=== PATIENT | male | born 1980 | race Caucasian/White ===

== ENCOUNTER 2022-08-14 10:11 | Outpatient (CLI) | payer OTHER, SELFPAY | END 2022-08-14 10:12 | disposition home or self-care (01) | LOC: RT 10:13 | PROVIDERS: Visit Provider Nurse Practitioner Family | DX: J42 Unspecified chronic bronchitis (principal); R05.9 Cough, unspecified | CPT/HCPCS: 94010 ==

== ENCOUNTER → 2023-03-06 09:59 | Outpatient (BNVA) | payer OTHER, SELFPAY | PROVIDERS: Visit Provider Internal Medicine Rheumatology | DX: Z79.899 Other long term (current) drug therapy (principal); M19.90 Unspecified osteoarthritis, unspecified site; R60.9 Edema, unspecified; Z11.1 Encounter for screening for respiratory tuberculosis; Z11.59 Encounter for screening for other viral diseases; M45.6 Ankylosing spondylitis lumbar region; R60.0 Localized edema; M76.61 Achilles tendinitis, right leg; M76.62 Achilles tendinitis, left leg | CPT/HCPCS: 36415; 80076; 82306; 82565; 85025; 85651; 86140; 86200; 86480; 86704; 86803; 86812; 87340 ==

== ENCOUNTER 2023-03-28 08:04 | Outpatient (CLI) | payer OTHER, SELFPAY ==
--- NOTE | 2023-03-28 08:45 | USR_ITS ---
PROCEDURE INFORMATION: Exam: US Soft Tissue Head and Neck, Soft Tissue Exam date and time: 03/28/2023 8:23 AM Age: 42 years old Clinical indication: Other: Edema; Additional info: R60.9 - edema, unspecified TECHNIQUE: Imaging protocol: Real-time ultrasound scan of the head and neck with image documentation. Exam focused on the soft tissue in the region of clinical concern. COMPARISON: No relevant prior studies available. FINDINGS: Lymph nodes: No lymphadenopathy. Soft tissues: Ultrasonographic images of the soft tissues in the region of interest. Right parotid gland appears grossly normal. No fluid collection or mass visualized. Symmetrical in comparison with the left. US/US soft tissue head neck 13272 IMPRESSION: Ultrasonographic images of the soft tissues in the region of interest. Right parotid gland appears grossly normal. No fluid collection or mass visualized. Symmetrical in comparison with the left.
== END 2023-03-28 08:05 | disposition home or self-care (01) ==
LOC: RAD 08:05
PROVIDERS: PCP Nurse Practitioner Family; Visit Provider Internal Medicine Rheumatology
DX: R60.0 Localized edema (principal)
CPT/HCPCS: 76536

== ENCOUNTER 2024-11-05 18:14 | Inpatient (IN) | payer OTHER, MEDICARE, SELFPAY ==
--- OUTSIDE RECORDS SUMMARY | 2024-01-26 04:00 | XMS_ITS ---
Author Organization [facility] Address [address] [place] [address] Care Team Providers Care Youth Services Specialist Name Role Phone [facility] Primary Care Provider Yuval Murray JR [phone] Jade Dsouza APRN Unavailable Unavailable Migration, Provider [...] Date End Date Status cyclobenzaprine *Reorder from [facility] for eRx and Interaction Alerts* Active Omeprazole *[facility]* Active Meloxicam *[facility] strength-f orm [facility]* Active Topiramate *[facility] strength-f orm [facility]* Active tramadol *[facility] and Interaction Alerts* Active Social [...] Treatment Next Appt Details Provider Name:Yuval orozco, 11/10/2024 03:45:00 PM, [address], [facility] [place], [address], Progress Notes * EDWIN RODRIGUEZOB:[birth year] (43 yo M)Acc No.[id number]:01/26/2024 Patient: MINDI MOREAU :1980 A ge:43 Y S ex:Male Address:[address] [place], [place] [address] [address] Subjective: * Chief Complaints: * E MR-Dada [...]
--- OUTSIDE RECORDS SUMMARY | 2024-10-27 09:30 | XMS_ITS ---
Author Organization [facility] Address [address] [place] [address] Care Team Providers Care X Ray Equipment Servicer Name Role Phone [facility] Primary Care Provider Yuval Murray JR Unavailable [phone] Jade Dsouza APRN Unavailable Unavailable Isatu Wilson Unavailable [phone] REASON FOR VISIT HFU/DIRECTOR INFORMATICS - Encounters Encounter Location Date Provider Diagnosis [facility] [address] [place] [address], [place] [address] 10/27/2024 Isatu Wilson Plan Of Treatment Next Appt Details Provider Name:Yuval orozco, 11/10/2024 03:45:00 PM, [address] [place] [address], [facility] [place], [address], Progress Notes * KELLY GENEVIEVEAMOLOB:[birth year] (43 yo M)Acc No.[id number]:10/27/2024 Patient: MINDI MOREAU Provider: Sanjeev Wilson APRN :1980 A ge:43 Y S ex:Male Date:10/27/2024 Address[address] [id number] Pcp:[facility] Subjective: * Chief Complaints: * * * HFU/DIRECTOR INFORMATICS - * Electronic signature of Erwin Wilson APRN on 11/05/2024 at 06:18 PM CDT Sign off status: Pending * Provider: Sanjeev Wilson APRN Date: 0 10/27/2024 Generated for Tita Zapata on: 0 11/05/2024 06:18 PM CDT
--- OUTSIDE RECORDS SUMMARY | 2024-11-03 09:15 | XMS_ITS ---
Author Organization [facility] Address [address] [place] [address] Care Team Providers Care Crusher Loader Equipment Operator Name Role Phone [facility] Primary Care Provider Yuval Murray JR Unavailable [phone] Jade Dsouza APRN Unavailable Unavailable Isatu Wilson Unavailable [phone] Results Component Value Reference Range Flag Notes CBC w\ Auto Diff [id number] Reviewed date:11/05/2024 09:51:51 AM Interpretation: Performing Lab: [...] 40.0-70.0 % Lymph Auto% 31.2 22.0-44.0 % [place] Auto% 9.1 3.0-7.0 % HI Eos Auto% 4.4 2.0-4.0 % HI Baso Auto% 1.1 0.0-1.0 % HI Imm Gran% .5 .0-.4 % HI Neutro Abs 2.96 .80-7.70 Absolute Neutrophil Count 2960 NA Lymph Abs 1.72 .10-4.10 [place] Abs .50 .20-1.00 Eos Abs .24 .00-.40 Baso Abs .06 .00-.20 Imm Gran Abs .03 .00-.10 NRBC# .00 .00-.20 NRBC% .00 .00-.20 /100 int act WBC's Comprehensive Metabolic Pane l (CMP) 06072 Reviewed date:11/05/2024 09:51:51 AM Interpretation: Performing Lab: Notes/Report: Diagnosis Description: Bacteremia Glucose Serum 88 71-110 MG/DL Testing p erformed at [facility], [address] [place] [address] Dr. Dileep Galindo, [place] [address]. CLIA ID#: [id number] BUN 10 7-21 MG/DL Creat .63 .57-1.17 MG/DL P-cgbogf-j-benzoquinone imine (NAPQI) is a metabolite of acetaminophen, [...] UNIT/L Osmo Serum,Calculated 290 280-300 MOSM/KG CRP 57831 Reviewed date:11/05/2024 09:51:51 AM Interpretation: Performing Lab: Notes/Report: Diagnosis Description: Bacteremia CRP <.50 .40-1.00 MG/DL REASON FOR VISIT 48007084 1 Week F/U Medications Medication SIG (Take, [...] Duloxetine & Lidocaine-Menthol Active cyclobenzaprine *Reorder from [employer] for eRx and Interaction Alerts* Active Topiramate *Pick strength-form from [employer] for eRX* Active Meloxicam *Pick strength-form from [facility] for eRX* Active Omeprazole *Pick strength-form from [employer] for eRX* Active tramadol *Reorder from [employer] for eRx and Interaction Alerts* Active Zofran 4 MG Tablet 1 tablet Orally q6h; Duration: 7 days may take 1 every 6 hours as needed for nausea. 09/03/2019 Not-Taking [place] 10-325 MG Tablet 1 tablet as needed [...] 11/03/2024 Encounters Encounter Location Date Provider Diagnosis [facility] [place] [address] 11/03/2024 Isatu Wilson Bacteremia R78.81 and Recurrent headache R51.9 Assessments [...] LP CSF CoNS, corynebacterium 10-15-24; W 9.7, Key Filer 0.65, Crp <0.50 10-25-24 W 8.0, Key Filer 0.71, Key Filer <0.50 4. Diagnostics; 10-13-24; CTA brain; High-grade [...] LP CSF CoNS, corynebacterium 10-15-24; W 9.7, Key Filer 0.65, Crp <0.50 10-25-24 W 8.0, Key Filer 0.71, [place] <0.50 4. Diagnostics; 10-13-24; CTA brain; High-grade [...] LP CSF CoNS, corynebacterium 10-15-24; W 9.7, Key Filer 0.65, Crp <0.50 10-25-24 W 8.0, Key Filer 0.71, Key F[place] <0.50 4. 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 and 50% stenosis of the right M2 segment 10-15-24; CT head; No acute intracranial findings 7-18-25; Thoracic stimulator in place, no evidence of [...] rev iewed, medication list reviewed and reconciled Pending Test Test Name Order Date 1,3 Dsmw-E-Eyewzp (Fungitell) 75794 07/2024 Next Appt Details Follow Up: next week with Dr Joselito Garza, Reason: Hospital lab f/u Provider Name:Yuval Casey Valeria orozco, 11/10/2024 03:45:00 PM, [address] [place] [address], [phone], History and Physical Notes * Examination Category [...] Notes * EDWIN RODRIGUEZOB:[birth year] (43 yo M)Acc No.[id number]:11/03/2024 Patient: MINDI MOREAU Provider: Sanjeev Wilson APRN :1980 A ge:43 Y S ex:Male Date:11/03/2024 Address:[place], [id number] Pcp:[facility] Check In:01:55 PM CSTCheck 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 Diagnosed with Aseptic Meningitis. 10-14-24/ BC + S. epi. Repeat BC neg [...] tramadol , Notes to Pharmacist: *Reorder from [facility] for eRx and Interaction Alerts*Topiramate , Notes to Pharmacist: *[facility]*cyclobenzaprine , Notes to Pharmacist: *Reorder from [facility] for eRx and Interaction Alerts*Meloxicam , Notes to Pharmacist: *[facility]*Omeprazole , Notes to Pharmacist: *[facility]*Taking Duloxetine & Lidocaine-Menthol Taking Metoprolol [...] tramadol , Notes to Pharmacist: *Reorder from [facility] for eRx and Interaction Alerts*Taking Topiramate , Notes to Pharmacist: *[facility]*Taking cyclobenzaprine , Notes to Pharmacist: *Reorder from [facility] for eRx and Interaction Alerts*Taking Meloxicam , Notes to Pharmacist: *[facility]*Taking Omeprazole , Notes to Pharmacist: *[facility]*Not-TakingValium 10 MG Tablet 1 tablet Orally One time , Notes to Pharmacist: Bring prescription to appointment.[place] 10-325 MG Tablet 1 tablet as needed [...] Notes to Pharmacist: Bring prescription to appointment.Not-Taking [place] 10-325 MG Tablet 1 tablet as needed [...] LP CSF CoNS, corynebacterium 10-15-24; W 9.7, Key Filer 0.65, Crp <0.50 10-25-24 W 8.0, Key Filer 0.71, [place] <0.50 4. Diagnostics; 10-13-24; CTA brain; High-grade [...] AM CDT ?LAB: Comprehensive Metabolic Panel (CMP) 97537* Value Reference Range S odium 141 136-145 [...] 11/05/2024 at 09:51 AM CDT ?LAB: CRP 49161* Value Reference Range C RP <.50 .40-1.00 - MG/DL * This lab was reviewed by Kaleb Wilson on 11/05/2024 at 09:51 AM CDT ?LAB: 1,3 Kggl-Q-Smacib (Fungitell) 59559 Notes: repeat surveillance blood cultures in 2 weeks???2.?Others? Notes: Hospital records reviewed, medication list reviewed and reconciled?? * Procedure Codes: 3 078F DIAST BP < 80 MM ON7057V SYST BP LT 130 MM HG * Follow Up: n ext week with Dr. Garza (Reason: Hospital lab f/u) Billing Information: * Visit Code: 43019 Office Visit, Est Pt., Level 4. * Procedure Codes: 3078F DIAST BP < 80 MM HG. 3074F SYST BP LT 130 MM HG. * Sign off status: Completed true * Provider: Sanjeev Wilson APRN Date: 0 11/03/2024 Generated for Tita amin/Jordi/Morganitting on: 0 11/05/2024 06:19 PM CDT
[2024-11-05] VITALS (23 sets, daily range): BP systolic 93–154; BP diastolic 64–86; PULSE 77–93; RESP 13–27; TEMP 36.8; O2SAT 91–98
--- OUTSIDE RECORDS SUMMARY | 2024-11-05 18:19 | XMS_ITS | Patient Health Record ---
Author Organization [facility] Address [address] [place] [address] Care Team Providers Care Technical Spec Name Role Phone [facility] Primary Care Provider Yuval Murray JR Unavailable [phone] Jade Dsouza APRN Unavailable Unavailable Sergio Francois Unavailable [phone] Migration, Provider Unavailable Unavailable Isatu Wilson Unavailable [phone] Allergies Allergen (clinical drug ingredient) Drug/Non Drug Allergy documented on EMR Reaction Allergy Type Onset Date Status acetaminophen / oxycodone Percocet Unknown Drug Allergy Active isotretinoin Isotretinoin Unknown Drug Allergy A ctive oxycodone Oxycodone Unknown Drug Allergy Active Results Component Value Reference Range Flag Notes CT Chest, Abdomen, Pelvis w/ + w/o Contrast-[id number] (Not yet reviewed by provider) Interpretation: Performing Lab: Notes/Report: [id number]&org=[employer]Site Comprehensive Metabolic Pane l (CMP) 44635 (Not yet reviewed by provider) Interpretation: Performing Lab: Notes/Report: Diagnosis Description: Bacteremia Glucose Serum 88 71-110 MG/DL Testing p erformed at [facility], [address] [place] [address] [place] [address]. CLIA ID#: [id number] BUN 10 7-21 MG/DL Creat .63 .57-1.17 MG/DL T-qjscxu-l-benzoquinon e imine (NAPQI) is a metabolite of acetaminophen, [...] UNIT/L Osmo Serum,Calculated 290 280-300 MOSM/KG CRP 64020 (Not yet reviewed by provider) Interpretation: Performing Lab: Notes/Report: Diagnosis Description: Bacteremia CRP <.50 .40-1.00 MG/DL CBC w\ Auto Diff 11914 (Not yet reviewed by provider) Interpretation: Performing Lab: Notes/Report: Diagnosis Description: Bacteremia WBC 5.5 4.5-11.0 X10'3 RBC 4.81 4.50-5.90 X10'6 Hgb 14.3 13.5-17.5 G/DL Hct 45.3 41.0-53.0 % MCV 94.2 80.0-100.0 FL MCH 29.7 27.0-31.0 PG MCHC 31.6 31.0-37.0 G/DL Platelet 192 150-400 X10'3 RDW-SD 49.6 35.0-49.0 FL HI RDW-CV 14.7 12.2-15.6 % MPV 10.0 9.2-12.0 FL Neutro Auto% 53.7 40.0-70.0 % Lymph Auto% 31.2 22.0-44.0 % [place] Auto% 9.1 3.0-7.0 % HI Eos Auto% 4.4 2.0-4.0 % HI Baso Auto% 1.1 0.0-1.0 % HI Imm Gran% .5 .0-.4 % HI Neutro Abs 2.96 .80-7.70 Absolute Neutrophil Count 2960 NA Lymph Abs 1.72 .10-4.10 [place] Abs .50 .20-1.00 Eos Abs .24 .00-.40 Baso Abs .06 .00-.20 Imm Gran Abs .03 .00-.10 NRBC# .00 .00-.20 NRBC% .00 .00-.20 /[address] Chest, Abdomen, Pelvis w/ + w/o Contrast-[id number] (Not yet reviewed by provider) Interpretation: Performing Lab: Notes/Report: See Below For Report CT Chest, Abdomen, Pelvis w/ + w/o Contr 4419 Read See Below For Report CRP 80298 (Not yet reviewed by provider) Interpretation: Performing Lab: Notes/Report: 4419 CRP <.50 .40-1.00 MG/DL Reason For Referral Reason Recurrent Upper Resp iratory Infections - [facility]FT ONLY: [facility] - Scheduled Diagnosis 1 Acute upper respirat ory infection, unspecified (J06.9) Referring Provider First Name [facility] Referring Provider Last Name [facility] Referring Provider [facility] Referred Organization [facility] Referred Provider Sergio Francois Referred Address [address] [place] [address] [address] [place], [place],[address], Referred Provider Specialty Pulmonary Di seases General Notes Noelle Morrison 024 01:34:54 PM >Scheduled 12/30/23 @ 9:00 AM Referral Priority Routine Medications Medication SIG (Take, Route, Frequency, Duration) Notes Start Date End Date Status Metoprolol Succinate ER 50 MG Tablet Extended Release 24 Hour 1 tablet Orally Once a day Active Duloxetine & Lidocaine-Menthol Active cyclobenzaprine *Reorder from [facility] for eRx and Interaction Alerts* Active Topiramate *Pick strength-form from [facility] for eRX* Active Meloxicam *Pick strength-form from [facility] for eRX* Active [place] Allergy 60 MG Tablet 1 tablet as needed Orally Twice a day Active Acetaminophen 325 MG Tablet 1 tablet as needed Orally every 4 hrs Active Lidocaine & Emollient 5 % Therapy Pack as directed Externally Active Omeprazole 20 MG Capsule Delayed Release 1 capsule 30 minutes before morning meal Orally Once a day Active Omeprazole *Pick strength-form from [facility] for eRX* Active tramadol *Reorder from [facility] for eRx and Interaction Alerts* Active Zofran 4 MG Tablet 1 tablet Orally q6h; Duration: 7 days may take 1 every 6 hours as needed for nausea. 09/03/2019 Not-Taking [place] 10-325 MG Tablet 1 tablet as needed Orally every 4 hrs; Duration: 7 days may take every 4-6 hours as needed for pain. Do not exceed taking 5 tablets per day. 09/03/2019 Not-Taking Valium 10 MG Tablet 1 tablet Orally One time; Duration: 1 days Bring prescription to appointment. 06/07/2020 Not-Taking Immunizations Vaccine Route Administration Date Status Comme nts Influenza (whole), CPT 34495 Inactive Unknown 01/29/2018 Administered Influenza (whole), CPT 12428 Inactive Unknown 01/08/2018 Administered Social History Tobacco Use: Social History Observation Description Date Details (start date - stop date) Never Smoker NA - NA Social History Depression Screening Social Info Question Answer Notes PHQ-9 Little interest or pleasure in doing thin gs Not at all Feeling down, depressed, or hopeless Several day s Trouble falling or staying asleep, or sleeping t oo much Several days Feeling tired or having little energy Several da ys Poor appetite or overeating Several days Feeling bad about yourself, or that you are a failure, or have let yourself or your family down Not at all Trouble concentrating on thi ngs, such as reading the newspaper or watching television Several days Moving or speaking so slowly that other people could have noticed. Or the opposite ? being so fidgety or restless that you have been moving around a lot more than usual Not at all Thoughts that you would be b jamal off , or of hurting yourself in some way Not at all Total Score 5 Interpretation Mild Depression Drugs/Alcohol: Social Info Question Answer Notes Alcohol Screen (Audit-C) Did you have a drink containing alcohol in the past year? Yes How often did you have a drink containing alcohol in the past year? 2 to 4 times a month (2 points) How many drinks did you have on a typical day when you were drinking in the past year? 1 or 2 drinks (0 point) How often did you have 6 or more drinks on one occasion in the past year? Never (0 point) Points 2 Interpretation Negative Drugs Have you used drugs other than those for medical reasons in the past 12 months? No Tobacco Use: Social Info Question Answer Notes xTobacco Use/Smoking Are you a nonsmoker Additional Details Category Social Info Options Details Miscellaneous: Occupation: retired, savita tary Living with: spouse, family Drugs/Alcohol: Do you drink alcohol? Yes, Socially Migrated Social History Migrated Social History Alcoholic beverages? - Yes, Currently on disability? - Yes, Drug or substance abuse? - No, Marital Status - , Nonprescription drug use? - No, Smoking - No, Smoking status (MU) - Never smoker, Working currently? - No zzMigrated Social History Migrated Social History Smoking Status:Smokes tobacco daily (finding) Problems Problem Type SNOMED Code ICD Code Onset Dates Problem Status W/U Status Risk Notes Problem Type II diabetes mellitus without complication (675423525) Type 2 diabetes mellitus without complications (E11.9) Active confirmed Problem Chronic pain (25650856) Other chronic pain (G89.29) Active confirmed Problem Chronic pain syndrome (941421430) Chronic pain syndrome (G89.4) Active confirmed Problem Cervicalgia (64790401) Cervicalgia (M54.2) Active confirmed Problem Pain in thoracic spine (217619649) Pain in thoracic spine (M54.6) Active confirmed Problem Erectile dysfunction (disorder) (584871688) Erectile dysfunction, unspecified erectile dysfunction type (N52.9) Active confirmed Problem Male hypogonadism (48811813) Hypogonadism in male (E29.1) Active confirmed Problem 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) Testosterone deficiency in male (E29.1) Active confirmed Problem Altered mental status (724472439) Altered mental status, unspecified altered mental status type (R41.82) Active confirmed Problem Chronic pain (00487714) Chronic pain (G89.29) Active confirmed Problem Spondylosis without myelopathy (98690836) Multilevel spondylosis (M47.819) Active confirmed Problem Metabolic encephalopathy (29064766) Acute metabolic encephalopathy (G93.41) Active confirmed Problem Skin sensation disturbance (00574991) Arm paresthesia, left (R20.2) Active confirmed Problem S/P placement of nerve stimulator (Z96.82) Active confirmed Problem Brain neurostimulator device in situ (589937331) Brain neurostimulator device in situ (Z96.82) Active confirmed Vital Signs Heart Rate 83 /min 11/03/2024 Temperature 98.3 degrees Fahrenheit 11/03/2024 Height-cm 177.80 cm 11/03/2024 Oximetry 97 % 11/03/2024 Blood pressure diastolic 73 mm Hg 11/03/2024 Weight-kg 109.3 kg 11/03/2024 Height 70.00 in 11/03/2024 Blood pressure systolic 125 mm Hg 11/03/2024 Weight 240.96 lbs 11/03/2024 BMI 34.57 kg/m2 11/03/2024 Procedures Procedure Date Ordered Date Performed Result Body Sit e PFT with FRC: (NO TGV) 12/30/2023 12/30/2023 N/A Encounters Encounter Location Date Provider Diagnosis [facility] [address] [place] [address], [place] [address] 11/03/2024 Isatu Wilson Bacteremia R78.81 and Recurrent headache R51.9 [facility] [address] [place] [address] [place] [address] 12/30/2023 Sergio Francois SOB (shortness of breath) on exertion R06.02 [facility] [address] [place] [address], [place] [address] 11/03/2024 Isatu Wilson Migrated_Facility 0 0 01/26/2024 Provider Migration Migrated_Facility 0 0 01/25/2024 Provider Migration [facility] [address] [place] [address], [place] [address] 11/04/2024 Isatu Wilson Assessments Encounter Date Diagnosis (ICD Code) Assessment Notes Treatment Notes Treatment Clinical Notes Section Notes 12/30/2023 SOB (shortness of breath) on exertion (ICD-10 - R06.02) 11/03/2024 Bacteremia (ICD-10 - R78.81) repeat surveillance [...] LP CSF CoNS, corynebacterium 10-15-24; W 9.7, Account Auditor 0.65, Crp <0.50 10-25-24 W 8.0, Account Auditor 0.71, Account Auditor <0.50 4. Diagnostics; 10-13-24; CTA brain; High-grade [...] LP CSF CoNS, corynebacterium 10-15-24; W 9.7, Account Auditor 0.65, Crp <0.50 10-25-24 W 8.0, Account Auditor 0.71, Account Auditor <0.50 4. Diagnostics; 10-13-24; CTA brain; High-grade [...] LP CSF CoNS, corynebacterium 10-15-24; W 9.7, Account Auditor 0.65, Crp <0.50 10-25-24 W 8.0, Account Auditor 0.71, Account Auditor <0.50 4. Diagnostics; 10-13-24; CTA brain; High-grade [...] and referral to Neurologist Plan Of Treatment Pending Test Test Name Order Date Prothrombin Time 59076 08/18/2019 Prothrombin Time 69765 08/27/2019 Basic Metabolic Panel (BMP) 66688 2019 Basic Metabolic Panel (BMP) 44253 2019 CBC w\ Auto Diff 54541 08/19/2020 CBC w\ Auto Diff 65768 08/18/2019 CBC w\ Auto Diff 39805 08/27/2019 CBC w\ Auto Diff 80310 11/03/2024 Comprehensive Metabolic Panel (CMP) 8005 3 11/03/2024 Estradiol Level 41801 08/19/2020 Partial Thromboplastin Time 69938 2019 Partial Thromboplastin Time 12333 2019 Prolactin 81434 08/19/2020 Thyroid Stimulating Hormone (TSH) 00284 08/19/2020 Semen Count Post Vasectomy 27715 021 Testosterone (Free&Total) Male 10115, 84 402, 48121 08/19/2020 CRP 20986 11/03/2024 CRP 88961 10/15/2024 1,3 Ypxp-U-Njgins (Fungitell) 01547 07/2024 Testosterone, Bio and SHBG, Adult Male 8 4403, 12891 08/19/2020 CT Chest, Abdomen, Pelvis w/ + w/o Contr ast-[id number] 10/17/2024 CT Chest, Abdomen, Pelvis w/ + w/o Contr ast-[id number],38912 10/17/2024 MRI Thoracic Spine w/o Cont-65601 2019 MRI Thoracic Spine w/o Cont-71161 2019 Thoracic Spine 1V-94372 09/02/2019 Thoracic Spine 1V-58173 09/02/2019 COVID 19 PCR--27777 09/01/2019 Next Appt Details Provider Name:Yuval orozco, 11/10/2024 03:45:00 PM, [address], [place], [address], Insurance Providers Payer Name Payer Address Payer Phone Subscriber Number Group Number Insured Name Patient Relationship to Insured Coverage Start Date Coverage End Date [employer] [address] [place] [phone] [id number] MINDI TSAI [place] Self - patient is the insured Medical (General) History Medical History History ICD Code Chicken Pox Pneumonia Arthritis Hernia Back Trouble HBP GERD Sleep Apnea Surgical History Surgery Date(Month/Year) laminectomy 2009 spinal fusion 2009 hernia 2013 T9 laminectomy and SCS placement 08/2019 Hernia repair Laminectomy Lumbar fusion Hospitalization History Reason Date(Month/Year) above listed
--- OUTSIDE RECORDS SUMMARY | 2024-11-05 18:19 | XMS_ITS | Clinical Summary ---
Author Organization [facility] Address [address] [place] [address] Care Team Providers Care Primary Special Education Teacher Name Role Phone Unavailable Primary Care Provider Unavailabl e Encounters Date Type Department Care Team Description 11/04/2024 Outside Records [facility] [address] [facility] [place] [address] Interface, Provider 11/04/2024 Travel from Last 3 Months Social History Tobacco Use Types Packs/Day Years Used Date Smoking Tobacco: Never Assessed Sex and Gender Information Value Date Recorded Sex Assigned at Not on file Legal Sex Male 12:46 AM CDT Gender Identity Not on file Sexual Orientation Not on file Plan of Treatment Health Maintenance Due Date Last Done Comments COLONOSCOPY 1978 CT Colonography 1978 Colorectal Cancer Screening 1978 FIT DNA 1978 FIT 1978 Hepatitis C Screening 1978 SIGMOIDOSCOPY 1978 Anxiety Screening 1986 HIV Screening 1993 Depression Screening 1996 Hepatitis B Vaccine (1 of 3 - 19+ 3-dose series) 1997 TDAP/DTaP/TD Vaccines (1 - Tdap) 1997 Lipid Panel 2018 COVID-19 Vaccine ( - 2023-2 5 season) 2023 Influenza Series (#1) 2024 Meningococcal B Vaccine Aged Out No l onger eligible based on patient's age to complete this topic Pneumococcal Vaccine 0-50 years Aged Out No longer eligible based on patient's age to complete this topic
--- OUTSIDE RECORDS SUMMARY | 2024-11-05 18:19 | XMS_ITS | Encounter Summary ---
Author Organization [facility] Address [address] [place] [address] Care Team Providers Care Sorter Pricer Name Role Phone Unavailable Primary Care Provider Unavailabl e Encounter Details Date Type Department Care Team (Late st Contact Info) Description 11/04/2024 Outside Records [facility] [address] [facility] [place] [address] Interface, Provider Social History Tobacco Use Types Packs/Day Years Used Date Smoking Tobacco: Never Assessed Sex and Gender Information Value Date Recorded Sex Assigned at Not on file Legal Sex Male 12:46 AM CDT Gender Identity Not on file Sexual Orientation Not on file documented as of this encounter Plan of Treatment Not on file documented as of this encounter Visit Diagnoses Not on filedocumented in this encounter
--- OUTSIDE RECORDS SUMMARY | 2024-11-05 18:19 | XMS_ITS | Encounter Summary ---
Author Organization [facility] Address [address] [place] [address] Care Team Providers Care Lidding Machine Operator Name Role Phone Unavailable Primary Care Provider Unavailabl e Encounter Details Date Type Department Care Team (Latest Contact Info) Description 11/04/2024 Travel Social History Tobacco Use Types Packs/Day Years [...]
--- OUTSIDE RECORDS SUMMARY | 2024-11-05 18:19 | XMS_ITS | Patient Health Record ---
Author Organization [facility] Address [address] [facility], [place] [id number] Care Team Providers Care Podiatric Medicine Doctor Name Role Phone NICK BOBBI Primary Care Provider Silverio Rvier Jr [phone] Allergies Allergen (clinical drug ingredient) Drug/Non Drug Allergy documented on EMR Reaction Allergy Type Onset Date Status codeine Codeine Unknown Drug Allergy Active Reason For Referral No Information Medications Medication SIG (Take, Route, Frequency, Duration) Notes Start Date End Date Status Triamcinolone Acetonide 0.1 % 1 application Externally two times a day; Duration: 90 days 04/22/2024 Active Social History Tobacco Use: Social History Observation Description Date Details (start date - stop date) Never Smoker NA - NA Tobacco Control (Standard) Question Answer Notes Tobacco use: Nonsmoker Problems Problem Type SNOMED Code ICD Code Onset Dates Problem Status W/U Status Risk Notes Problem Diabetic peripheral neuropathy associated with type 2 diabetes mellitus (8184425403520) Type 2 diabetes mellitus with diabetic neuropathy, unspecified whether terminal gauger supervisor insulin use (E11.40) Active confirmed Vital Signs Respiratory Rate 22 /min 07/09/2024 Height 70 in 07/09/2024 Weight 270 lbs 07/09/2024 BMI 38.74 kg/m2 07/09/2024 Encounters Encounter Location Date Provider Diagnosis [facility] [address] [facility], [place] [id number] 04/22/2024 Silverio [place] toenail L60.0 ; Type 2 diabetes mellitus with diabetic neuropathy, unspecified whether shelter insulin use E11.40 and Toe pain, left M79.675 [facility] [address] [facility], [place] [id number] 04/30/2024 Silverio [place] toenail L60.0 ; Type 2 diabetes mellitus with diabetic neuropathy, unspecified whether shelter insulin use E11.40 and Toe pain, left M79.675 [facility] [address] [place], [place] [id number] 07/09/2024 Silverio Satish Davis Ingrown toenail L60.0 ; Type 2 diabetes mellitus with diabetic neuropathy, unspecified whether terminal gauger supervisor insulin use E11.40 ; Pain in left toe(s) M79.675 ; Pain in right toe(s) M79.674 ; Tinea unguium B35.1 and Corns/callosities L84 Assessments Encounter Date Diagnosis (ICD Code) Assessment Notes Treatment Notes Treatment Clinical Notes Section Notes 04/30/2024 Type 2 diabetes mellitus with diabetic neuropathy, unspecified whether terminal gauger supervisor insulin use (ICD-10 - E11.40) 04/30/2024 Ingrown toenail (ICD-10 - L60.0) Discussed treatment, risks and complications. Bandage change performed. Discussed continued bandage changes. Discussed signs of infection. Discussed recurrence. Advised patient to continue with the triamcinolone cream. 04/22/2024 Type 2 diabetes mellitus with diabetic neuropathy, unspecified whether terminal gauger supervisor insulin use (ICD-10 - E11.40) 04/22/2024 Ingrown toenail (ICD-10 - L60.0) Discussed several treatment options for the ingrown toenail in detail with the patient. Patient elected partial permanent avulsion at this time and was advised of the procedure, complications and postoperative care in detail. Answered all patient's questions to patient's satisfaction and informed consent was signed. Local anesthesia was then obtained around the left great toe 6cc of lidocaine plain, offending nail borders were avulsed, nail matrix was cauterized with sodium hydroxide, wounds were flushed with vinegar, bandaging was applied. Patient was given both written and oral postoperative instructions. Will consider routine foot care at the next visit. Rx for triamcinolone cream. 07/09/2024 Type 2 diabetes mellitus with diabetic neuropathy, unspecified whether shelter insulin use (ICD-10 - E11.40) 07/09/2024 Ingrown toenail (ICD-10 - L60.0) 04/22/2024 Toe pain, left (ICD-10 - M79.675) 07/09/2024 Pain in left toe(s) (ICD-10 - M79.675) 04/30/2024 Toe pain, left (ICD-10 - M79.675) 07/09/2024 Pain in right toe(s) (ICD-10 - M79.674) 07/09/2024 Tinea unguium (ICD-10 - B35.1) Discussed diabetic foot care, routine foot care, and shelter blood sugar control. Debridement of nails 1 through 5 bilateral down 2mm as close to normal thickness as possible using mechanical and manual means. Again advised the patient on preventative care. Patient to apply topical antifungals to the nails. 07/09/2024 Corns/callositie s (ICD-10 - L84) Plan Of Treatment Next Appt Details Provider Name:Silverio Hernández Jr, 11/10/2024 08:15:00 AM, [address] [place] [address], [phone], Insurance Providers Payer Name Payer Address Payer Phone Subscriber Number Group Number Insured Name Patient Relationship to Insured Coverage Start Date Coverage End Date [facility] [address] [place] [address] [phone] [id number] MINDI FENG Self - patient is the insured Medical (General) History Medical History History ICD Code Back Pain DIABETIC Heel Pain High Blood Pressure Numbness/Tingling in feet/toes Sprains
--- NOTE | 2024-11-05 19:17 | PM.CONSULT ---
Providers/Reason For Consult Consulting Physician/Specialty*: Lev Hauser MD neurology and epilepsy Reason for Consult*: Recurrent right hemispheric or left hemispheric TIA episodes x 3 since October 13, 2024, last episode 11/04/2024 and simple partial seizure like episodes described as intermittent numbness in either the left or right forearm associated with right hand and forearm contractures lasting for approximately 30 minutes occurring nocturnally around 11 PM or 12 PM every night since the first TIA episode on October 13, 2024 in patient with history of seronegative rheumatoid arthritis of hands and inflammatory arthritis. Attending Physician: Cezar Lott Primary Care Provider: Lencho Hernandez History of Present Illness History of Present Illness Augie Rodriguez is a 43 year old male with a history of seronegative rheumatoid arthritis of the hands and inflammatory arthritis treated by rheumatology with Plaquenil and prednisone but patient stated he ran out of the medications. Neurological consult was obtained secondary to reports of recurrent left hemispheric and right hemispheric TIA episodes x 3 with the first event occurring on October 13, 2024, last episode 11/04/2024 and reports of focal seizure like episodes described as intermittent numbness in either the left or right forearm associated with right hand and forearm contractures lasting for approximately 30 minutes occurring nocturnal around 11 PM or 12 PM every night since the first TIA episode on October 13, 2024 in patient with history of seronegative rheumatoid arthritis of hands and inflammatory arthritis. According to the patient, on October 08, 2024 he was evaluated at the [facility] secondary to complaints of intermittent headaches for a few days prior to being evaluated at the [facility]. On October 13, 2024 the patient was at home with his family. According to the patient he was getting ready for bed and suddenly experienced pain in the right occiput region/base of his neck associated with weakness and numbness involving the right side of his body. According to the patient's who witnessed the event, the patient was also confused and was staring and was not responding appropriately. The patient's contacted EMS and the patient was taken to a hospital. The symptoms resolved in approximately 30 minutes. According to the patient's the patient was started on Plavix and low-dose aspirin following the first TIA episode. The patient was reported to have a second left hemisphere TIA episode manifested as right-sided weakness with slurred speech and confusion and staring on 11/03/2024 and was again evaluated at a hospital and CT angiogram of the head and neck and head CT scans were obtained. 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 Otherwise the study was unrevealing. Head CT was reported to be unrevealing. The patient's stated the patient was reported to have an infection but the exact location of the infection could not be determined. Patient underwent a lumbar puncture which was reported to be negative per patient and patient's history. This lab was not available for review. According to the patient's the patient was started on vancomycin and was hospitalized but discharged on oral antibiotics. On 11/04/2024 the patient experienced left-sided numbness and slurred speech and confusion and was again not responding appropriately and was repeating numbers. Patient was admitted to a local hospital and transferred to [facility] ICU bed #4 on 11/05/2024. According to the patient's since the first TIA like episode the patient has been experiencing recurrent nocturnal episodes around 11 PM or 12 PM every night described as numbness and tingling either involving his left or right upper extremity from his elbow to his wrist with or without tonic contractures of the right hand and right forearm lasting for approximately 30 minutes. The patient had 2D echocardiogram performed on October 15, 2024 which reported normal ejection fraction and no obvious valvular thrombus. Drug allergies: Losartan which resulted in throat swelling Lovastatin which resulted in dry mouth and throat swelling Percocet (oxycodone/acetaminophen) which resulted in patient losing consciousness Current medications: Acetaminophen 500 mg p.o. every 6 hours as needed Diclofenac sodium 1% topical gel 4 g topically 4 times a day Hydroxychloroquine 200 mg p.o. twice daily (patient reports that he ran out of this medication) Leflunomide 20 mg p.o. daily Loratadine 10 mg p.o. daily Metoprolol 50 mg p.o. twice daily Minocycline 50 mg p.o. daily Omeprazole 20 mg p.o. twice daily Prednisone 10 mg p.o. to use as instructed for joint pain Past medical history: Seronegative rheumatoid arthritis of both hands Inflammatory arthritis Chronic back pain with pain stimulator 2020 History of toxin burn pit exposure in the patient retired 12 years ago Habits: None service: [employer]. Patient retired 12 years ago from the Social history: Patient lives with his family Review of Systems General: Reports: 10 or more systems reviewed and unremarkable except in HPI and below Medications/Allergies Home Medications ?Medication ?Instructions ?Recorded ?Confirmed ?Last Taken ?Type acetaminophen 500 mg capsule 500 mg PO Q6H PRN 03/06/23 09/24/23 Unknown History diclofenac sodium 1 % topical gel 4 g topical QID 03/06/23 09/24/23 Unknown History (Aleve (diclofenac)) loratadine 10 mg tablet 10 mg PO DAILY 03/06/23 09/24/23 Unknown History metoprolol tartrate 50 mg tablet 50 mg PO BID 03/06/23 09/24/23 Unknown History minocycline 50 mg capsule 50 mg PO DAILY 03/06/23 09/24/23 Unknown History omeprazole 20 mg capsule,delayed 20 mg PO BID 03/06/23 09/24/23 Unknown History release prednisone 10 mg tablet See Rx Instructions PO .COMPLEX 07/09/23 09/24/23 Unknown Rx PRN joint pain #60 tabs hydroxychloroquine 200 mg tablet 200 mg PO BID #180 tabs 09/24/23 09/24/23 Unknown Rx leflunomide 20 mg tablet 20 mg PO DAILY #30 tabs 09/24/23 09/24/23 Unknown Rx Allergies Allergy/AdvReac Type Severity Reaction Status Date / Time losartan Allergy Severe throat Verified 09/24/23 13:04 swell lovastatin Allergy Severe dry mouth Verified 09/24/23 13:04 throat start to swell acetaminophen (From Percocet) AdvReac Intermediate pass out Verified 09/24/23 13:04 oxycodone (From Percocet) AdvReac Intermediate pass out Verified 09/24/23 13:04 PFSH Acute PFSH: Medical History (Updated 11/05/24 @ 19:43 by Lev Hauser MD) Immunization counseling Seronegative rheumatoid arthritis of both hands High risk medication use Achilles tendinitis of both lower extremities Swelling of both parotid glands Inflammatory arthritis Arthritis Joint pain Hyperlipidemia History of hypertension Allergies Acne Hernia Surgical History H/O laminectomy History of spinal fusion Family History Other Arthritis Denies family history of Lupus (systemic lupus erythematosus) Rheumatoid arthritis Diabetes Heart disease Lung disease Cancer Hypertension Social History Smoking and tobacco/nicotine status: never used tobacco/nicotine Alcohol intake: current Alcohol intake frequency: few times a month Vitals/I&O/Wt Last Vital Signs Temp 98.3 F 11/05/24 18:30 Pulse 82 11/05/24 18:45 Resp 14 11/05/24 18:45 BP 119/75 11/05/24 18:45 Pulse Ox 97 11/05/24 18:45 O2 Del Method Room Air 11/05/24 18:45 Weight last 48 hrs Weight 229 lb 4.492 oz Physical Exam Narrative: NIH stroke score = 0 The patient is alert he is oriented x 3. Speech fluent. Head normocephalic. Neck supple. Cranial nerves II through XII intact pupils 3 mm round reactive to light and accommodation. Extraocular movements intact. There were no nystagmus. Visual griggs appear to be full via confrontation. Motor testing 5/5 bilaterally. There is no drift. Rceggz-zllz-zkuajc and qdtj-lwiv-oqtn maneuvers were within normal limits. There was no sign of ataxia. Deep tendon reflexes 2+ bilaterally. Plantar responses flexor bilaterally. There was no clonus. Sensory examination was intact to touch. There was no extinction on double sensory stimulation. Throat clear. Lungs clear. Heart regular rhythm and rate. Extremities were negative for cyanosis or edema. A&P Assessment and plan 1. TIA (transient ischemic attack): Impression: 1. Recurrent right or left hemispheric TIA episodes x 3 seconds since October 13, 2024, last episode 11/04/2024 2. Recurrent simple partial seizure like episodes described as intermittent numbness in either the left or right forearm associated with right hand and forearm contractures lasting for approximately 30 minutes occurring nocturnally around 11 PM or 12 PM every night since the first TIA episode on October 13, 2024 in patient with history of seronegative rheumatoid arthritis of hands and inflammatory arthritis. 3. Seronegative rheumatoid arthritis of the hands and history of inflammatory arthritis addressed by rheumatology, patient stated that he ran out of Plaquenil and prednisone 4. Chronic back pain with lumbar pain stimulator (reported to be MRI compatible to obtain a head MRI if needed). Plan: 1. Portable bedside EEG to assess for seizures to be performed on 11/05/2024 2. Recommend workup for infection since the patient was treated with IV vancomycin during his second hospitalization for reported infection but source of infection was not determined 3. Recommend obtaining rheumatology consult to assist in patient's care since he has history of seronegative rheumatoid arthritis of the hands and inflammatory arthritis and was treated with Plaquenil and prednisone but patient stated he ran out of the medications 4. Recommend obtaining lab to assess for hypercoagulable state (factor V Leiden, homocystine, prothrombin gene mutation, anticardiolipin antibody, beta-2 glycoprotein 1, and lupus anticoagulant) 5. Continue Plavix 75 mg p.o. every morning with aspirin 81 mg p.o. every morning with food 6. Recommend holding off on starting intravenous heparin drip until infection has been ruled out and only use if needed if patient experiences any recurrent episodes suggestive of cerebral TIAs or for any cardiac issues 7. Consider obtaining transesophageal echocardiogram to further rule out embolic source for TIA episodes if the EEG study is unrevealing and not suggestive of epilepsy 8. Neurochecks and vital signs per ICU routine and NIH stroke protocol 9. Recommend cardiac telemetry monitoring and obtaining cardiology assistance to assess for cardiac arrhythmias 10. Since the patient has reports of allergic reaction to lovastatin resulting in dry mouth and throat swelling, will refer to cardiology whether or not the patient should be on any lipid-lowering agents 2. Focal seizures: PDMP PDMP Reviewed: Not Reviewed Consult Attestations Medical Necessity Statement: The patient was evaluated by neurology for recurrent recurrent TIA episodes and partial seizure-like episodes Coding Level of Care Code 16403 Diagnoses TIA (transient ischemic attack) G45.9 Focal seizures R56.9
--- NOTE | 2024-11-05 19:45 | PM.ACPR ---
Documented by User: Melinda Cancamkaterine 11/05/24 19:50 Procedure/Consent Procedure Narrative: Recurrent right hemispheric or left hemispheric TIA episodes x 3 since October 13, 2024, last episode 11/04/2024 and simple partial seizure like episodes described as intermittent numbness in either the left or right forearm associated with right hand and forearm contractures lasting for approximately 30 minutes occurring around 11 PM or 12 PM every night since the first TIA episode on September 20142024 in patient with history of seronegative rheumatoid arthritis of hands and inflammatory arthritis. EEG Routine Details of Procedure EEG [address]- awake & asleep: 13628 (Portable EEG surface recording for confusion / staring.) Documented by User: Lev Hauser MD 11/05/24 21:31 Procedure/Consent Consent: Additional Consent Information: EEG TEMPLATE: This is a 19 channel routine video surface EEG recording utilizing the [employer] software with surface and EKG electrodes. The procedure was performed utilizing the international 10-20 system. Patient name: Augie Lam Date of : 1980 Patient age [age] years old Identification number: [id number] Referring Physician: /Dr. Lott Interpreting physician: Lev Hauser MD EEG#: EEG Start time: 20:23:44 EEG End time: 20:45:05 Duration of study: 21-minutes Date of study: 11/05/2024 Reason for study: Seizure episodes Skull defects: None Condition of recording: The patient was reported to be awake but at times appeared confused Cooperation: Good/fair Activation procedures: None Medications: Acetaminophen 500 mg p.o. every 6 hours as needed Diclofenac sodium 1% topical gel 4 g topically 4 times a day Hydroxychloroquine 200 mg p.o. twice daily (patient reports that he ran out of this medication) Leflunomide 20 mg p.o. daily Loratadine 10 mg p.o. daily Metoprolol 50 mg p.o. twice daily Minocycline 50 mg p.o. daily Omeprazole 20 mg p.o. twice daily Prednisone 10 mg p.o. to use as instructed for joint pain Background activity: Background activity during wakefulness consisted of 6 to 7 Hz low voltage theta activity posteriorly penetrated by intermittent low voltage beta activity centrally and anteriorly. The generalized slowing of the background rhythm seen during wakefulness was associated with intermittent burst of 2-1/2 to 3 Hz frontally predominant moderate voltage semirhythmic delta activity lasting anywhere from 1 second to greater than 15 seconds. Intermittently during the recording the record was partially obscured by muscle and motion artifact. Interictal activity: During this awake 21-minute portable surface EEG recording, generalized 6 to 7 Hz theta slowing was seen during wakefulness associated with intermittent burst of semirhythmic 2-1/2 to 3 Hz frontally predominant delta activity was seen lasting anywhere from 1 second to greater than 15 seconds Ictal activity: None Impression: This is an abnormal awake 21-minute portable surface EEG recording secondary to 6 to 7 Hz theta slowing seen during wakefulness associated with intermittent burst of semirhythmic 2-1/2 to 3 Hz frontally predominant delta activity was seen lasting anywhere from 1 second to greater than 15 seconds during wakefulness. Clinical correlation: The above finding is suggestive of a diffuse encephalopathic process, nonspecific with regards to etiology. Note: The possibility of postictal state cannot be excluded. Plan/recommendations: 1. Recommend starting Keppra 1 g IV load followed by 500 mg IV every 12 hours 2. Recommend repeat portable surface EEG recording if needed during this hospitalization or on outpatient basis following discharge if the patient remained stable. If there is continued concerns for potential subclinical seizures or if patient experiences recurrent seizure episodes as described by the patient's consisting of confusion and staring with or without paresthesias involving the patient's arms with tonic contraction of the right arm, will recommend patient be transferred to another facility for inpatient continuous video service EEG monitoring. Note: The above EEG results and recommendations regarding starting IV Keppra were discussed with at approximately 9:25 PM on 11/05/2024 Physician name/Signature: Lev Hauser MD nuclear waste management engineer/Signature: Melinda Fisher
[2024-11-05] MEDS: pantoprazole 40 mg SDV IVP (19:49)
[2024-11-05] MEDS: levETIRAcetam 1,000 MG/100 ML PREMIX 400 MG IV (21:21)
--- NOTE | 2024-11-05 21:54 | PM.HP ---
Providers/Chief Complaint Admitting Physician: Cezar Lott Primary Care Provider: Lencho Hernandez Chief Complaint: Neuro Symptoms ICU 4 History of Present Illness Augie Rodriguez is a 43 year old male with a past medical history of type 2 diabetes mellitus, rheumatoid arthritis, on Plaquenil, prednisone who presents to [facility] as a transfer from outside hospital due to concerns for left-sided facial droop, slurring speech, numbness and tingling of left lower face, left arm, symptoms began at 10:25 AM. -October 08 he was evaluated at the [facility], for intermittent headaches experienced pain in the right occiput region/base of his neck, associate with weakness and numbness along the right side of his body, he was also confused, his symptoms resolved upon arrival, he was placed on aspirin, Plavix following first TIA episode -He also reports an infectious workup, receiving a lumbar puncture, was told he had some sort of infection? Was managed with IV vancomycin discharged on p.o. antibiotics but is not sure which p.o. divided he is currently taking - Patient reports on October 13 -CTA from 10/12/2024 showed there is segmental visualization of the right posterior cerebral artery with suspected 40% multifocal stenosis of the right P1 and P2 segments fed by the the posterior circulation, there is no focal stenosis or aneurysmal dilatation seen of the [place] of [place] - Episode 11/04/2024 reports intermittent numbness at times left and right forearm, spasms of right hand, forearm, reported more left-sided numbness, slurred speech, confusion, was not responding appropriately, resolved on presentation to ER [facility], neurology consulted, not a tPA candidate, NIH stroke scale was 0, was transferred from [facility], CT head no acute findings, not a tPA candidate, transferred to [facility] - Echo 717 showed EF of 55 to 60%, mild mitral valve regurg, mild tricuspid regurg, trace aortic regurg mild pulmonic valvular regurgitation, UDS was positive for benzodiazepines, patient does report using clonazepam - Denies any fevers, chills, nausea, vomiting - No Bites or dog bites or scratches - [place], [place] exposure to [place] - No exposure to tuberculosis - He does have a maculopapular rash on his abdomen and back, however it is nonpruritic, nonpainful, not in a dermatomal fashion Medications/Allergies Home Medications ?Medication ?Instructions ?Recorded ?Confirmed ?Last Taken ?Type acetaminophen 500 mg capsule 500 mg PO Q6H PRN 03/06/23 09/24/23 Unknown History diclofenac sodium 1 % topical gel 4 g topical QID 03/06/23 09/24/23 Unknown History (Aleve (diclofenac)) loratadine 10 mg tablet 10 mg PO DAILY 03/06/23 09/24/23 Unknown History metoprolol tartrate 50 mg tablet 50 mg PO BID 03/06/23 09/24/23 Unknown History minocycline 50 mg capsule 50 mg PO DAILY 03/06/23 09/24/23 Unknown History omeprazole 20 mg capsule,delayed 20 mg PO BID 03/06/23 09/24/23 Unknown History release prednisone 10 mg tablet See Rx Instructions PO .COMPLEX 07/09/23 09/24/23 Unknown Rx PRN joint pain #60 tabs hydroxychloroquine 200 mg tablet 200 mg PO BID #180 tabs 09/24/23 09/24/23 Unknown Rx leflunomide 20 mg tablet 20 mg PO DAILY #30 tabs 09/24/23 09/24/23 Unknown Rx Allergies Allergy/AdvReac Type Severity Reaction Status Date / Time losartan Allergy Severe throat Verified 09/24/23 13:04 swell lovastatin Allergy Severe dry mouth Verified 09/24/23 13:04 throat start to swell acetaminophen (From Percocet) AdvReac Intermediate pass out Verified 09/24/23 13:04 oxycodone (From Percocet) AdvReac Intermediate pass out Verified 09/24/23 13:04 PFSH Acute PFSH: Medical History (Updated 11/05/24 @ 19:43 by Lev Hauser MD) Immunization counseling Seronegative rheumatoid arthritis of both hands High risk medication use Achilles tendinitis of both lower extremities Swelling of both parotid glands Inflammatory arthritis Arthritis Joint pain Hyperlipidemia History of hypertension Allergies Acne Hernia Surgical History H/O laminectomy History of spinal fusion Family History Other Arthritis Denies family history of Lupus (systemic lupus erythematosus) Rheumatoid arthritis Diabetes Heart disease Lung disease Cancer Hypertension Social History Smoking and tobacco/nicotine status: never used tobacco/nicotine Alcohol intake: current Alcohol intake frequency: few times a month Vitals/I&O/Wt Last Vital Signs Temp 98.3 F 11/05/24 18:30 Pulse 93 11/05/24 20:30 Resp 16 11/05/24 20:30 BP 154/86 11/05/24 20:00 Pulse Ox 92 11/05/24 20:30 O2 Del Method Room Air 11/05/24 18:45 11/05/24 11/05/24 11/05/24 06:59 14:59 22:59 Intake Total 100 / 100 Balance 100 / 100 Weight last 48 hrs Weight 104 kg Physical Exam Const: COMMON NORMALS: no acute distress and patient oriented x3 HENMT: COMMON NORMALS: normocephalic HEAD & SCALP: normocephalic Neck/C-Spine: COMMON NORMALS: no JVD Resp: COMMON NORMALS: normal respiratory effort, No retractions, No use of accessory muscles and clear to auscultation bilaterally AUSCULTATION: clear to auscultation bilaterally Cardio: COMMON NORMALS: no JVD, regular rate, regular rhythm, S1 normal heart sound present and S2 normal heart sound present RATE: regular rate RHYTHM: regular rhythm HEART SOUNDS: S1 normal heart sound present and S2 normal heart sound present GI: COMMON NORMALS: Normal to inspection, nondistended, normoactive bowel sounds present, Soft to palpation and non-tender Extremity: COMMON NORMALS: no calf tenderness and no pedal edema Neuro: COMMON NORMALS: patient oriented x3, CN's II-XII intact bilaterally and moves all extremities Psych: COMMON NORMALS: mental status grossly normal Skin: OTHER: Maculopapular rash, throughout abdomen, not in dermatomal fashion A&P Assessment and plan 1. Focal seizures: 2. TIA (transient ischemic attack): 3. Inflammatory arthritis: Plan: Episode of left facial droop, left lower face numbness, tingling, with confusion, with headache, NIH stroke scale of 0, not a tPA candidate, CT head no acute findings, CTA head and neck shows 40% multifocal stenosis of the right P1 and P2 segments fed by the posterior circulation -TIA episode and/or seizures Plan - Neurochecks - NIH stroke scale - Continue aspirin, Plavix - Statin - Concerns for possible seizures, receiving EEG, will do a trial of Keppra - Monitor mentation closely -Neurology consulted -Need to request CTA head and neck results to get official report - Full code - Lovenox for DVT prophylaxis Does have an immunocompromise state, Plaquenil, leflunomide, prednisone - Takes prednisone usually once a week, check cortisol levels - Order inflammatory markers Rash on abdomen - Will monitor - Does not appear to be herpetic or shingles like rash or in a dermatomal fashion - But will monitor, if rash does not improve can do a trial of acyclovir, Type 2 diabetes mellitus, low-dose sliding scale PDMP PDMP Reviewed: Last Reviewed 11/05/24 22:07 by Brandon Boyd MD Attestations Medical Necessity Statement*: Patient requires hospitalization for possible TIA, versus seizures, inpatient, greater than 2 midnights Diagnoses Focal seizures R56.9 TIA (transient ischemic attack) G45.9 Inflammatory arthritis M19.90
[2024-11-05 22:01] LABS: Hematocrit 43.0 % (37-53); Hemoglobin 14.00 g/dL (11.27-16.99); Mean Corpuscular HGB Conc 32.6 g/dL (30-55); Mean Corpuscular Hemoglobin 29.7 pg (27-33); Mean Corpuscular Volume 91.1 fl (82-101); Nucleated Red Blood Cells % 0 %; Platelet Count 182 10^3/cmm (157-399); Red Blood Count 4.72 10^6/uL (3.85-5.65); White Blood Count 5.80 10^3/uL (3.29-11.43)
[2024-11-05 22:18] LABS: Glucose Urine UA Negative (Normal); Nitrate Urine Negative (Negative); Specific Gravity, Urine 1.012 (1.005-1.030)
[2024-11-05 22:20] LABS: Add Urine Microscopic? YES
[2024-11-05 22:28] LABS: Cholesterol 164 mg/dL (0-200); HDL Cholesterol 55 mg/dL (60-100); Triglycerides 68 mg/dL (0-150)
[2024-11-05 22:33] LABS: Procalcitonin 0.03 ng/mL (0-0.5)
[2024-11-05 22:37] LABS: Estmated Average Glucose 111; Hemoglobin A1C 5.5 % (4.0-6.0)
[2024-11-06] VITALS (20 sets, daily range): BP systolic 82–123; BP diastolic 62–78; PULSE 63–95; RESP 6–23; TEMP 36.7–37; O2SAT 91–98
[2024-11-06] MEDS: levETIRAcetam 500 MG/100 ML PREMIX 400 MG IV (07:54)
--- NOTE | 2024-11-06 08:22 | P.PN_ITS ---
Vitals/I&O/Wt Last Vital Signs Temp 98.6 F 11/06/24 00:00 Pulse 88 11/06/24 05:43 Resp 15 11/06/24 04:00 BP 113/62 11/06/24 04:00 Pulse Ox 97 11/06/24 04:00 O2 Del Method Room Air 11/05/24 18:45 11/05/24 11/06/24 11/06/24 22:59 06:59 14:59 Intake Total 220 / 220 100 / 100 Output Total 850 / 850 650 / 1500 Balance -630 / -630 -650 / -1280 100 / 100 Weight last 48 hrs Weight 104.054 kg Weight 104 kg Physical Exam 2 Narrative: General: Alert HEENT: Normocephalic, atraumatic, EOMI, breathing Cardio: Regular rate rhythm, normal S1-S2, no murmurs rubs gallops, JVD Respiratory: Good bilateral air entry, no wheezes no rhonchi appreciated GI: Abdomen soft, nontender, nondistended, normoactive bowel sounds present all 4 quadrants, Neuro: Cranial nerves II to XII intact, strength 5/5, sensation 5/5, no gross neurological deficit Behavior: Appropriate and cooperative Extremities: Pulses 2+, no edema, no cyanosis Skin: visible rash on the abdomen and the back Data 11/05/24 21:21 Micro: Microbiology 11/05/24 21:25 Blood Culture - Preliminary Blood SPECIMEN COLLECTED 11/05/24 21:21 Blood Culture - Preliminary Blood SPECIMEN COLLECTED A&P Assessment and plan 1. Focal seizures: 2. TIA (transient ischemic attack): 3. Inflammatory arthritis: Plan: Augie Rodriguez is a 43 year old male with a past medical history of type 2 diabetes mellitus, rheumatoid arthritis, on Plaquenil, prednisone who presents to [facility] as a transfer from outside hospital due to concerns for left-sided facial droop, slurring speech, numbness and tingling of left lower face, left arm, symptoms began at 10:25 AM. He was not a tPA candidate Episode of left facial droop, left lower face numbness, tingling, with confusion, with headache, NIH stroke scale of 0, not a tPA candidate, CT head no acute findings, CTA head and neck shows 40% multifocal stenosis of the right P1 and P2 segments fed by the posterior circulation -TIA episode and/or seizures Plan - Neurochecks - NIH stroke scale - Continue aspirin, Plavix - Statin - Concerns for possible seizures, receiving EEG, will do a trial of Keppra - Monitor mentation closely -Neurology consulted -Need to request CTA head and neck results to get official report - Full code - Lovenox for DVT prophylaxis Does have an immunocompromise state, Plaquenil, leflunomide, prednisone - Takes prednisone usually once a week, check cortisol levels - Order inflammatory markers Rash on abdomen - Will monitor - Does not appear to be herpetic or shingles like rash or in a dermatomal fashion - But will monitor, if rash does not improve can do a trial of acyclovir, Type 2 diabetes mellitus, low-dose sliding scale PDMP PDMP Reviewed: Not Reviewed Attestations 2 Medical Necessity Statement*: The patient will require more than 2 midnights for his management of stroke symptoms and further optimization Time Spent in Patient Care: Greater than 35 minutes (>than 50% of time spent in counselling and/or direct pt care on unit) . Critical Care Time: The high probability of a clinically significant, sudden or life threatening deterioration, as referenced in this documentation, required my full and direct attention, intervention and personal management. The critical care time shown is in addition to time spent performing any reported separately billable procedures and includes the following: [x] Data and vital sign review and interpretation [x ] Patient assessment, examination and intervention [x] Medication orders and management [x] Patient/Family updates as able [x] Care Coordination and Documentation. Critical Care Time (min): 55 Coding Level of Care Code Critical Care >/= 30 minutes Diagnoses Focal seizures R56.9 TIA (transient ischemic attack) G45.9 Inflammatory arthritis M19.90
--- NOTE | 2024-11-06 10:28 | P.PN_ITS ---
Subjective 2 Subjective: History of present illness: Augie Rodriguez is a 43 year old male with a history of seronegative rheumatoid arthritis of the hands and inflammatory arthritis treated by rheumatology with Plaquenil and prednisone but patient stated he ran out of the medications. Neurological consult was obtained secondary to reports of recurrent left hemispheric and right hemispheric TIA episodes x 3 with the first event occurring on October 13, 2024, last episode 11/04/2024 and reports of focal seizure like episodes described as intermittent numbness in either the left or right forearm associated with right hand and forearm contractures lasting for approximately 30 minutes occurring nocturnal around 11 PM or 12 PM every night since the first TIA episode on October 13, 2024 in patient with history of seronegative rheumatoid arthritis of hands and inflammatory arthritis. According to the patient, on October 08, 2024 he was evaluated at the [facility] secondary to complaints of intermittent headaches for a few days prior to being evaluated at the [facility]. On October 13, 2024 the patient was at home with his family. According to the patient he was getting ready for bed and suddenly experienced pain in the right occiput region/base of his neck associated with weakness and numbness involving the right side of his body. According to the patient's who witnessed the event, the patient was also confused and was staring and was not responding appropriately. The patient's contacted EMS and the patient was taken to a hospital. The symptoms resolved in approximately 30 minutes. According to the patient's the patient was started on Plavix and low-dose aspirin following the first TIA episode. The patient was reported to have a second left hemisphere TIA episode manifested as right-sided weakness with slurred speech and confusion and staring on 11/03/2024 and was again evaluated at a hospital and CT angiogram of the head and neck and head CT scans were obtained. 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 Otherwise the study was unrevealing. Head CT was reported to be unrevealing. The patient's stated the patient was reported to have an infection but the exact location of the infection could not be determined. Patient underwent a lumbar puncture which was reported to be negative per patient and patient's history. This lab was not available for review. According to the patient's the patient was started on vancomycin and was hospitalized but discharged on oral antibiotics. On 11/04/2024 the patient experienced left-sided numbness and slurred speech and confusion and was again not responding appropriately and was repeating numbers. Patient was admitted to a local hospital and transferred to [facility] ICU bed #4 on 11/05/2024. According to the patient's since the first TIA like episode the patient has been experiencing recurrent nocturnal episodes around 11 PM or 12 PM every night described as numbness and tingling either involving his left or right upper extremity from his elbow to his wrist with or without tonic contractures of the right hand and right forearm lasting for approximately 30 minutes. The patient had 2D echocardiogram performed on October 15, 2024 which reported normal ejection fraction and no obvious valvular thrombus. The patient underwent portable bedside EEG 2024 which was abnormal secondary to the following: Impression: This is an abnormal awake 21-minute portable surface EEG recording secondary to 6 to 7 Hz theta slowing seen during wakefulness associated with intermittent burst of semirhythmic 2-1/2 to 3 Hz frontally predominant delta activity was seen lasting anywhere from 1 second to greater than 15 seconds during wakefulness. Clinical correlation: The above finding is suggestive of a diffuse encephalopathic process, nonspecific with regards to etiology. Note: The possibility of postictal state cannot be excluded. Plan/recommendations: 1. Recommend starting Keppra 1 g IV jess d followed by 500 mg IV every 12 hours 2. Recommend repeat portable surface EE G recording if needed during this hospitalization or on outpatient basis following discharge if the patient remained stable. If there is continued concerns for potential subclinical seizures or if patient experiences recurrent seizure episodes as described by the patient's consisting of confusion and staring with or without paresthesias involving the patient's arms with tonic contraction of the right arm, will recommend patient be transferred to another facility for inpatient continuous video service EEG monitoring.Note: The above EEG results and recommendations regarding starting IV Keppra were discussed with at approximately 9:25 PM on 11/05/2024 On 11/06/2024 the patient is doing well he was without complaints. He did not experience any TIAs or any episodes to suggest seizures during the night. He is tolerating the Keppra. I recommended changing Keppra from IV to p.o. at 750 mg p.o. twice daily and schedule patient for follow-up in the [facility] neurology clinic in 1 to 2 weeks. Patient should be instructed to be on seizure precautions per state law until further notice. Drug allergies: Losartan which resulted in throat swelling Lovastatin which resulted in dry mouth and throat swelling Percocet (oxycodone/acetaminophen) which resulted in patient losing consciousness Current medications: Acetaminophen 500 mg p.o. every 6 hours as needed Diclofenac sodium 1% topical gel 4 g topically 4 times a day Hydroxychloroquine 200 mg p.o. twice daily (patient reports that he ran out of this medication) Leflunomide 20 mg p.o. daily Loratadine 10 mg p.o. daily Metoprolol 50 mg p.o. twice daily Minocycline 50 mg p.o. daily Omeprazole 20 mg p.o. twice daily Prednisone 10 mg p.o. to use as instructed for joint pain Past medical history: Seronegative rheumatoid arthritis of both hands Inflammatory arthritis Chronic back pain with pain stimulator 2019 History of toxin burn pit exposure in the patient retired 12 years ago Habits: None service: [employer]. Patient retired 12 years ago from the Social history: Patient lives with his family Review of Systems General: Reports: 10 or mor e systems reviewed and unremarkable except in HPI and below Vitals/I&O/Wt Last Vital Signs Temp 98.0 F 11/06/24 08:00 Pulse 63 11/06/24 08:00 Resp 20 H 11/06/24 08:00 BP 118/68 11/06/24 08:00 Pulse Ox 96 11/06/24 08:00 O2 Del Method Room Air 11/06/24 08:00 11/05/24 11/06/24 11/06/24 22:59 06:59 14:59 Intake Total 220 / 220 1000 / 1000 Output Total 850 / 850 650 / 1500 Balance -630 / -630 -650 / -1280 1000 / 1000 Weight last 48 hrs Weight 229 lb 6.4 oz Weight 229 lb 4.492 oz Data 11/05/24 21:21 Micro: Microbiology 11/05/24 21:25 Blood Culture - Preliminary Blood SPECIMEN COLLECTED 11/05/24 21:21 Blood Culture - Preliminary Blood SPECIMEN COLLECTED A&P Assessment and plan 1. TIA (transient ischemic attack): Impression: 1. Recurrent right or left hemispheric TIA episodes x 3 seconds since October 13, 2024, last episode 11/04/2024 2. Recurrent simple partial seizure like episodes described as intermittent numbness in either the left or right forearm associated with right hand and forearm contractures lasting for approximately 30 minutes occurring nocturnally around 11 PM or 12 PM every night since the first TIA episode on October 13, 2024 in patient with history of seronegative rheumatoid arthritis of hands and inflammatory arthritis. 3. Abnormal portable surface EEG recording 11/05/2024 secondary to the following: Impression: This is an abnormal awake 21-minute portable surface EEG recording secondary to 6 to 7 Hz theta slowing seen during wakefulness associated with intermittent burst of semirhythmic 2-1/2 to 3 Hz frontally predominant delta activity was seen lasting anywhere from 1 second to greater than 15 seconds during wakefulness. Clinical correlation: The above finding is suggestive of a diffuse encephalopathic process, nonspecific with regards to etiology. Note: The possibility of postictal state cannot be excluded. Plan/recommendations: Started Keppra 1 g IV load followed by 500 mg IV every 12 hours on 11/05/2024 Note: The above EEG results and recommendations regarding starting IV Keppra were discussed with at approximately 9:25 PM on 11/05/2024 3. Seronegative rheumatoid arthritis of the hands and history of inflammatory arthritis addressed by rheumatology, patient stated that he ran out of Plaquenil and prednisone 4. Chronic back pain with lumbar pain stimulator (reported to be MRI compatible to obtain a head MRI if needed). Plan: 1. Change IV Keppra to Keppra 750 mg p.o. twice daily for seizure prophylaxis 2. Place patient on seizure precautions per state law until further notice 3. Patient stable from neurological standpoint for discharge planning 4. Recommend repeat surface EEG recording on outpatient basis following discharge if the patient remained stable. Once the patient's Keppra levels are therapeutic 5. If the patient experiences recurrent seizure episodes as described by the patient's consisting of confusion and staring with or without paresthesias involving the patient's arms with tonic contraction of the right arm, will recommend patient undergo inpatient continuous video surface EEG monitor which will have to be performed at another facility for inpatient continuous video surface EEG monitoring since [facility] does not have the capacity for inpatient long-term continuous video surface EEG recordings. 6. Please schedule patient for follow-up in the [facility] neurology clinic 1 to 2 weeks after discharge 7. Obtain trough Keppra levels in 1 week (11/12/2024) at [facility] outpatient clinic or clinics that are associated with [facility] 8. Instruct patient to present to the nearest emergency room if he experiences any further seizure episodes 9. Agree with obtaining outpatient head MRI with and without contrast. Note: Patient has pain stimulator reported to be MRI compatible. This will have to be confirmed by the radiology department prior to the patient undergoing the head MRI procedure. 2. Seizures: 3. Abnormal EEG: PDMP PDMP Reviewed: Not Reviewed Attestations 2 Medical Necessity Statement*: The patient was evaluated by neurology for TIA episodes and seizure-like episodes. Coding Level of Care Code 01629 Diagnoses TIA (transient ischemic attack) G45.9 Seizures R56.9 Abnormal EEG R94.01
--- NOTE | 2024-11-06 11:52 | PC.OT ---
Pt was seen for OT evaluation sitting in bed. Pt is A+Ox3 and has no complaints and reports no pain. He demonstrates bilateral UE AROM WFL and bilateral MMT shoulder strength 5/5 (normal). He demonstrates good bilateral UE grasp strength. No OT necessary due to high level of independence. Pt has no further questions. Time with pt: 5 minutes
--- NOTE | 2024-11-06 13:02 | P.DS_ITS ---
Discharge Providers Date of Admission: 11/05/24 18:14 Date of Discharge: November 06, 2024 Attending Provider at Admission: Cezar Lott Attending Provider at Discharge: Maribel Soria MD Primary Care Provider: Lencho Hernandez Diagnoses at Discharge Discharge Diagnosis 1. TIA (transient ischemic attack): 2. Seizures: 3. Abnormal EEG: Reason for Visit Reason for Visit: Neuro Symptoms ICU 4 Brief History: Augie Rodriguez is a 43 year old male with a past medical history of type 2 diabetes mellitus, rheumatoid arthritis, on Plaquenil, prednisone who presents to [facility] as a transfer from outside hospital due to concerns for left-sided facial droop, slurring speech, numbness and tingling of left lower face, left arm, symptoms began at 10:25 AM. -October 08 he was evaluated at the [facility], for intermittent headaches experienced pain in the right occiput region/base of his neck, associate with weakness and numbness along the right side of his body, he was also confused, his symptoms resolved upon arrival, he was placed on aspirin, Plavix following first TIA episode. -He also reports an infectious workup, r eceiving a lumbar puncture, was told he had some sort of infection? Was managed with IV vancomycin discharged on p.o. antibiotics but is not sure which p.o. divided he is currently taking - Patient reports on October 13 -CTA from 10/12/2024 showed there is segm ental visualization of the right posterior cerebral artery with suspected 40% multifocal stenosis of the right P1 and P2 segments fed by the the posterior circulation, there is no focal stenosis or aneurysmal dilatation seen of the [place] - Episode 11/04/2024 reports intermittent numbness at times left and right forearm, spasms of right hand, forearm, reported more left-sided numbness, slurred speech, confusion, was not responding appropriately, resolved on presentation to ER [facility], neurology consulted, not a tPA candidate, NIH stroke scale was 0, was transferred from [facility], CT head no acute findings, not a tPA candidate, transferred to [facility] - Echo 717 showed EF of 55 to 60%, mild mitral valve regurg, mild tricuspid regurg, trace aortic regurg mild pulmonic valvular regurgitation, UDS was positive for benzodiazepines, patient does report using clonazepam - Denies any fevers, chills, nausea, vom iting - No Bites or dog bites or scratches - [place], no exposure to chicke ns - No exposure to tuberculosis - He does have a maculopapular rash on h is abdomen and back, however it is nonpruritic, nonpainful, not in a dermatomal fashion Hospital Course Hospital Course During his hospital stay the patient was discussed case with the neurology. The patient had abnormal portable EEG recording on 11/05/2024. And he was started on Keppra 1 g IV load followed by 500 mg twice daily. And after discussion with neurology to commence on Keppra 750 mg twice daily oral medication. To avoid driving since she has seizures and to follow with the primary care doctor postdischarge. And further MRI as outpatient was recommended with and without contrast.Since the patient is having pain stimulator and his MRI compatible therefore the patient need radiology department confirmation prior to the MRI procedure and has been informed to the patient.Preliminary blood cultures were negative. Labs did not show any leukocytosis urinalysis was clear. The patient had a rash which was more of a erythematous small comedonal/knee rash. There was no discharge from the rash or any pustular eruption any photophobia or any dermatomal distribution. Serology for cryptococcus HSV and VZV was sent. However the patient did not have any other symptoms of immunosuppression like candidiasis, diffuse seborrheic dermatitis or any other lesions. Or any other B symptoms. These workup to be followed as outpatient with the neurology. The patient also reported that he is on rheumatoid arthritis medication but he himself has not been compliant and not recently taking it. The patient symptoms of nonfocal deficits and resolutions are more explained with seizure activity. And agreed with the neurology further plan Physical Exam Narrative: General: Alert oriented x3, patient seen lying comfortably HEENT: Normocephalic, atraumatic, EOMI, breathing at room air Cardio: Regular rate rhythm, normal S1-S2, no murmurs rubs gallops, JVD_normal Respiratory: Good bilateral air entry, no wheezes no rhonchi appreciated GI: Abdomen soft, nontender, nondistended, normoactive bowel sounds present all 4 quadrants, Neuro: Cranial nerves II to XII intact, strength 5/5, sensation 5/5, no gross neurological deficit Behavior: Appropriate and cooperative Extremities: Pulses 2+, no edema, no cyanosis Skin: mild comedonal/acne rash on trunk without discharge or any dermatomal distribution or any pain symptoms Discharge Data Studies Completed and Pending Pending at discharge Category Date Time Status 1-3 Beta D Glucan [Fungitell Glucan Assay (Blood)] Lab 11/05/24 22:15 Received Routine Blood Culture Stat Lab 11/05/24 21:25 Results Cryptococcal Antigen w/ Reflex Stat Lab 11/05/24 22:15 Received Herpes Simplex 1&2 IgG AB Routine Lab 11/05/24 22:12 Received Herpes Simplex Virus DNA Stat Lab 11/05/24 22:12 Received Varicella Zoster IGG&IGM Stat Lab 11/05/24 22:12 Received Varicella-Zoster IgM AB Stat Lab 11/05/24 22:12 Received Laboratory Results WBC 5.80 10^3/uL (3.29-11.43) 11/05/24 21:21 RBC 4.72 10^6/uL (3.85-5.65) 11/05/24 21:21 Hgb 14.00 g/dL (11.27-16.99) 11/05/24 21:21 Hct 43.0 % (37-53) 11/05/24 21:21 MCV 91.1 fl (82-101) 11/05/24 21:21 MCH 29.7 pg (27-33) 11/05/24 21:21 MCHC 32.6 g/dL (30-55) 11/05/24 21:21 RDW 14.4 % (12.1-15.1) 11/05/24 21:21 Plt Count 182 10^3/cmm (157-399) 11/05/24 21:21 MPV 9.4 fL (7.4-10.4) 11/05/24 21:21 Neut % (Auto) 55.2 % 11/05/24 21:21 Lymph % (Auto) 30.3 % 11/05/24 21:21 [place] % (Auto) 9.1 % 11/05/24 21:21 Eos % (Auto) 4.0 % 11/05/24 21:21 Baso % (Auto) 0.7 % 11/05/24 21:21 Neut # (Auto) 3.20 10^3/uL (1.8-7.7) 11/05/24 21:21 Lymph # (Auto) 1.8 10^3/uL (0.8-4.8) 11/05/24 21:21 [place] # (Auto) 0.5 10^3/uL (0.2-0.9) 11/05/24 21:21 Eos # (Auto) 0.2 10^3/uL (0.0-0.8) 11/05/24 21:21 Baso # (Auto) 0.0 10^3/uL (0.0-0.1) 11/05/24 21:21 Nucleated RBC % (auto) 0 % 11/05/24 21:21 Nucleated RBCs # 0.0 /100WBC 11/05/24 21:21 ESR 2 mm/hr (0-10) 11/05/24 21:21 POC Glucose 107 mg/dL (70-110) 11/06/24 11:33 Estimat Average Glucose 111 11/05/24 21:21 Hemoglobin A1c 5.5 % (4.0-6.0) 11/05/24 21:21 Lactate Dehydrogenase 151 U/L (135-225) 11/05/24 21:21 C-Reactive Protein 3.0 mg/L (0.0-4.9) 11/05/24 21:21 Triglycerides 68 mg/dL (0-150) 11/05/24 21:21 Cholesterol 164 mg/dL (0-200) 11/05/24 21:21 LDL Cholesterol, Calc 95 mg/dL (50-129) 11/05/24 21:21 HDL Cholesterol 55 mg/dL (60-100) L 11/05/24 21:21 LDL/HDL Ratio 1.73 RATIO (0.00-3.22) 11/05/24 21:21 Cholesterol/HDL Ratio 2.98 mg/dL (1.0-5.00) 11/05/24 21:21 Procalcitonin 0.03 ng/mL (0-0.5) 11/05/24 21:21 Random Cortisol 1.16 ug/dL (2.47-19.5) L 11/05/24 21:21 Urine Color Yellow (Yellow) 11/05/24 22:08 Urine Appearance Clear (CLEAR) 11/05/24 22:08 Urine pH 7.0 (5-7) 11/05/24 22:08 Ur Specific [place] 1.012 (1.005-1.030) 11/05/24 22:08 Urine Protein Negative (Negative) 11/05/24 22:08 Urine Glucose (UA) Negative (Normal) 11/05/24 22:08 Urine Ketones Negative (Negative) 11/05/24 22:08 Urine Blood Negative (Negative) 11/05/24 22:08 Urine Nitrate Negative (Negative) 11/05/24 22:08 Urine Bilirubin Negative (Negative) 11/05/24 22:08 Urine Urobilinogen 0.2 mg/dL (Negative) 11/05/24 22:08 Ur Leukocyte Esterase Negative (Negative) 11/05/24 22:08 Urine RBC 0-2 /hpf (0-2) 11/05/24 22:08 Urine WBC 0-5 /hpf (0-5) 11/05/24 22:08 Ur Squamous Epith Cells 0-5 /hpf (0-5) 11/05/24 22:08 Amorphous Sediment Not Reportable 11/05/24 22:08 Urine Bacteria None seen /hpf (NONE) 11/05/24 22:08 Hyaline Casts 0.40 /lpf 11/05/24 22:08 Vitals Last Vital Signs Temp 98.4 F 11/06/24 12:00 Pulse 95 11/06/24 12:00 Resp 17 11/06/24 12:00 BP 120/76 11/06/24 12:00 Pulse Ox 96 11/06/24 12:00 O2 Del Method Room Air 11/06/24 08:00 Discharge Plan Discharge Patient Disposition: Home Condition: Stable Prescriptions: New levetiracetam 500 mg/5 mL (5 mL) Solution 750 mg PO BID 180 Days Qty: 2700 0RF Continued leflunomide 20 mg tablet 20 mg PO DAILY Qty: 30 5RF hydroxychloroquine 200 mg tablet 200 mg PO BID Qty: 180 1RF acetaminophen 500 mg capsule 500 mg PO Q6H PRN omeprazole 20 mg capsule,delayed release(DR/EC) 20 mg PO BID loratadine 10 mg tablet 10 mg PO DAILY metoprolol tartrate 50 mg tablet 50 mg PO BID minocycline 50 mg capsule 50 mg PO DAILY diclofenac sodium [Aleve (diclofenac)] 1 % gel 4 g topical QID Rx Instructions: apply to single knee, ankle, foot; for foot includes sole/toes/top of foot prednisone 10 mg tablet See Rx Instructions PO .COMPLEX PRN (Reason: joint pain) Qty: 60 0RF Rx Instructions: take 1 or 2 tab daily for 3-7 days prn joint pain flare PO PRN; Information Systems Security Developer OK for DC: Neurology Discharge Order = DC NOW: Discharge Order (Routine); Ordered 11/06/24 Ordered By: Maribel Soria Other Ambulatory Orders: MR head wo con* [id number] (Routine) Timeframe: 1 Week Facility: [facility] - Location: Radiology Ordered By: Maribel Soria Levetiracetam Immunoassy (Routine) Timeframe: 20241112 Facility: [facility] - Location: Lab - Main Lab Ordered By: Lev Hauser Referrals: Lev Hauser MD [Physician, Neurology] - 3 weeks Referral Note: follow up after keppra trough done Chad Weaver MD [Physician, Rheumatology] - 4-7 days Discharge Diet: Advance as tolerated and Usual diet Discharge Activity: Resume usual activity and Increase activity as tolerated Patient Instructions: Levetiracetam (By mouth), New-Onset Seizure in Adults (GEN), Opioid Safety, Patient Portal & [facility] Instructions, Seizures Discharge Attestations Time Spent in Discharge Care*: greater than 30 min Specific Discharge Activities: educating patient, educating and/or supporting family/caregiver, discussing with pcp/other providers, discussing with piano case and bench assembler/social workers/dc planners, documenting/other paperwork and evaluating patient/reviewing data Status at Discharge: Cognitive status at discharge: cognitively intact , Behavioral status at discharge: cooperative , Functional status at discharge: independent ambulation , Overall status at discharge: patient is back to baseline Quality Metrics Clinical Quality Measures [ No reported AMI, CVA or VTE this stay] Coding Level of Care Code 37326 Diagnoses TIA (transient ischemic attack) G45.9 Seizures R56.9 Abnormal EEG R94.01
[2024-11-09 16:25] LABS: Fungitell 1-3-B Glucan Assay 141 pg/mL (<60); Interpretation Positive (Negative)
== END 2024-11-06 12:27 | disposition home or self-care (01) | DRG 69 ==
PROVIDERS: Family Medicine; Admitting Provider Internal Medicine; PCP Nurse Practitioner Family; Visit Provider Student in an Organized Health Care Education/Training Program
DX: G45.9 Transient cerebral ischemic attack, unspecified (principal); G40.89 Other seizures; D84.9 Immunodeficiency, unspecified; R94.01 Abnormal electroencephalogram [EEG]; M06.9 Rheumatoid arthritis, unspecified; E11.9 Type 2 diabetes mellitus without complications; R21 Rash and other nonspecific skin eruption; Z91.199 Patient's noncompliance with other medical treatment and regimen due to unspecified reason; I10 Essential (primary) hypertension; G89.29 Other chronic pain; M54.50 Low back pain, unspecified; Z96.82 Presence of neurostimulator
CPT/HCPCS: 36415; 36416; 80061; 81001; 82533; 82962; 83036; 83615; 84145; 85025; 85651; 86140; 86403; 86695; 86696; 86787; 87040; 87449; 87530; 95819; 96372; 97161; J1650; J1953; J2470

== ENCOUNTER 2024-11-09 02:39 | Emergency (ER) | payer OTHER, MEDICARE, SELFPAY ==
--- OUTSIDE RECORDS SUMMARY | 2024-01-26 04:00 | XMS_ITS ---
Author Organization [facility] Address [address] [place] [address] Care Team Providers Care Peace Officer Name Role Phone [facility] Primary Care Provider Yuval Murray JR [phone] Jade Dsouza APRN Unavailable Unavailable Migration, Provider Unavailable Unavailable Allergies Allergen (clinical drug ingredient) Drug/Non Drug Allergy documented on EMR Reaction Allergy Type Onset Date Status acetaminophen / oxycodone Percocet Unknown Drug Allergy Active isotretinoin Isotretinoin Unknown Drug Allergy A ctive oxycodone Oxycodone Unknown Drug Allergy Active REASON FOR VISIT EMR-Dada Medications Medication SIG (Take, Route, Frequency, Duration) Notes Start Date End Date Status cyclobenzaprine *Reorder from [facility] for eRx and Interaction Alerts* Active Omeprazole *[facility]* Active Meloxicam *Pick strength-f orm [facility] for [facility]* Active Topiramate *Pick strength-f orm [facility] for [facility]* Active tramadol *[facility] for [facility] and Interaction Alerts* Active Social History Social History Additional Details Category Social Info Options Details Migrated Social History Migrated Social History Alcoholic beverages? - Yes, Currently on disability? - Yes, Drug or substance abuse? - No, Marital Status - , Nonprescription drug use? - No, Smoking - No, Smoking status (MU) - Never smoker, Working currently? - No Encounters Encounter Location Date Provider Diagnosis Migrated_Facility 0 0 01/26/2024 Provider Migration Plan Of Treatment Next Appt Details Provider Name:Yuval orozco, 11/12/2024 12:30:00 PM, [address], [place], [address], Progress Notes * EDWIN RODRIGUEZOB:[birth year] (43 yo M)Acc No.[id number]:01/26/2024 Patient: MINDI MOREAU :1980 A ge:43 Y S ex:Male Address:[address] [place], [place] [address] [address] Subjective: * Chief Complaints: * E MR-Dada * Medical History: Arthritis, H igh blood pressure, S welling, * Surgical History: Hernia repair Laminectomy Lumbar fusion * Family History: M igrated Family History: : Cancer. * Social History: M igrated Social History: M igrated Social History: Alcoholic beverages? - Yes, C urrently on disability? - Yes, D rug or substance abuse? - No, M arital Status - , N onprescription drug use? - No, S moking - No, S moking status (MU) - Never smoker, W orking currently? - No. * Medications: T akingtramadol , Notes to Pharmacist: *Reorder from [facility] for eRx and Interaction Alerts*Topiramate , Notes to Pharmacist: *Pick strength-form from [facility] for eRX*cyclobenzaprine , Notes to Pharmacist: *Reorder from [facility] for eRx and Interaction Alerts*Meloxicam , Notes to Pharmacist: *Pick strength-form from [facility] for eRX*Omeprazole , Notes to Pharmacist: *Pick strength-form from [facility] for eRX*Taking tramadol , Notes to Pharmacist: *Reorder from [facility] for eRx and Interaction Alerts*Taking Topiramate , Notes to Pharmacist: *Pick strength-form from [facility] for eRX*Taking cyclobenzaprine , Notes to Pharmacist: *Reorder from [facility] for eRx and Interaction Alerts*Taking Meloxicam , Notes to Pharmacist: *Pick strength-form from [facility] for eRX*Taking Omeprazole , Notes to Pharmacist: *Pick strength-form from [facility] for eRX* * Allergies: O xycodone: AllergyIsotretinoin: AllergyPercocet: Allergy * * Date:
--- OUTSIDE RECORDS SUMMARY | 2024-10-27 09:30 | XMS_ITS ---
Author Organization [facility] Address [address] [facility] [place] [address] Care Team Providers Care Dredge Worker Name Role Phone [facility] Primary Care Provider Yuval Murray JR Unavailable [phone] Jade Dsouza APRN Unavailable Unavailable Isatu Wilson Unavailable [phone] REASON FOR VISIT HFU/HEAD LINEMAN - Encounters Encounter Location Date Provider Diagnosis [facility] [address] [place] [address], [place] [address] 10/27/2024 Isatu Wilson Plan Of Treatment Next Appt Details Provider Name:Yuval orozco, 11/12/2024 12:30:00 PM, [address] [place] [address], [facility] [place], [address], Progress Notes * KELLY GENEVIEVEAMOLOB:[birth year] (43 yo M)Acc No.[id number]:10/27/2024 Patient: MINDI MOREAU Provider: Sanjeev Wilson APRN :1980 A ge:43 Y S ex:Male Date:10/27/2024 Address:[address] [id number] Pcp:[facility] Subjective: * Chief Complaints: * * * HFU/HEAD LINEMAN - * Electronic signature of Erwin Wilson APRN on 11/11/2024 at 08:01 AM CDT Sign off status: Pending * Provider: Sanjeev Wilson APRN Date: 0 10/27/2024 Generated for Tita amin/Jordi/Mattie on: 0 11/11/2024 08:01 AM CDT
--- OUTSIDE RECORDS SUMMARY | 2024-11-03 09:15 | XMS_ITS ---
Author Organization [facility] Address [address] [place] [address] Care Team Providers Care Admitting Representative Name Role Phone [facility] Primary Care Provider Yuval Murray JR Unavailable [phone] Jade Dsouza APRN Unavailable Unavailable Isatu Wilson Unavailable [phone] Results Component Value Reference Range Flag Notes CBC w\ Auto Diff [id number] Reviewed date:11/05/2024 09:51:51 AM Interpretation: Performing Lab: Notes/Report: Diagnosis Description: Bacteremia WBC 5.5 4.5-11.0 X10'3 RBC 4.81 4.50-5.90 X10'6 Hgb 14.3 13.5-17.5 G/DL Hct 45.3 41.0-53.0 % MCV 94.2 80.0-100.0 FL MCH 29.7 27.0-31.0 PG MCHC 31.6 31.0-37.0 G/DL Platelet 192 150-400 X10'3 RDW-SD 49.6 35.0-49.0 FL HI RDW-CV 14.7 12.2-15.6 % MPV 10.0 9.2-12.0 FL Neutro Auto% 53.7 40.0-70.0 % Lymph Auto% 31.2 22.0-44.0 % Sandoval Auto% 9.1 3.0-7.0 % HI Eos Auto% 4.4 2.0-4.0 % HI Baso Auto% 1.1 0.0-1.0 % HI Imm Gran% .5 .0-.4 % HI Neutro Abs 2.96 .80-7.70 Absolute Neutrophil Count 2960 NA Lymph Abs 1.72 .10-4.10 Sandoval Abs .50 .20-1.00 Eos Abs .24 .00-.40 Baso Abs .06 .00-.20 Imm Gran Abs .03 .00-.10 NRBC# .00 .00-.20 NRBC% .00 .00-.20 /100 int act WBC's Comprehensive Metabolic Pane l (CMP) [id number] Reviewed date:11/05/2024 09:51:51 AM Interpretation: Performing Lab: Notes/Report: Diagnosis Description: Bacteremia Glucose Serum 88 71-110 MG/DL Testing p erformed at [facility], [address] [place] [address] Dr. Dileep Galindo, [place] [address]. CLIA ID#: [id number] BUN 10 7-21 MG/DL Creat .63 .57-1.17 MG/DL K-atzetk-x-benzoquinone imine (NAPQI) is a metabolite of acetaminophen, NAPQI concentrations of apparoximately 10 mg/L correlation to toxic levels of acetaminophen demonstrates a greater than or equil to 10% change in results. NAPQI concentrations greater than this may lead to falsely depressed results for patient samples. Use of this assay is not recommended for patients undergoing treatment with phenindione, due to the potential for falsely depressed results. GFR 119.1 NA Calculation pe rformed from GFR calculator provided by the [employer]. Glomerular Filtration rate(GRF) is the best overall index of kidney function. Normal GFR varies according to age,sex, body size, and declines with age. The [employer] recommends using the CKD-EPI Creatinine Equation(2020) to estimate GFR. BUN/Creat Ratio 15.9 12.0-20.0 % Total Protein 6.4 5.8-8.0 G/DL Albumin 4.2 3.2-4.8 G/DL Globulin 2.2 2.3-3.5 G/DL LOW Alb/Glob 1.9 0.8-2.2 Calcium 9.7 8.7-10.4 MG/DL Sodium 141 136-145 MMOL/L Potassium 4.5 3.5-5.1 MMOL/L Chloride 101 98-107 MMOL/L CO2 32.2 20.0-31.0 MMOL/L HI Anion Gap 12 5-15 Alk Phos 71 46-116 Bili Total .4 .3-1.2 MG/DL Use of this assay is not recommended for patients undergoing treatment with eltrombopag due to the potential for falsely elevated results. AST/SGOT 18 15-37 UNIT/L ALT/SGPT 23 12-78 UNIT/L Osmo Serum,Calculated 290 280-300 MOSM/KG CRP [id number] Reviewed date:11/05/2024 09:51:51 AM Interpretation: Performing Lab: Notes/Report: Diagnosis Description: Bacteremia CRP <.50 .40-1.00 MG/DL 1,3 Imhv-L-Gmqwxk (Fungitell ) 44991 Reviewed date:11/10/2024 08:34:07 AM Interpretation: Performing Lab: Notes/Report: Diagnosis Description: Bacteremia 1,3 Ivgz-Z-Sqorny 39 NA 1,3 Arli-B-Mvuido Interp Negative Negative NA INTERPRETIVE INFORMATION: (1,3)-lamk-G-jafgnr (Fungitell) Less than 31 pg/mL ................... Negative 31-59 pg/mL ......................... . Negative 60-79 pg/mL ......................... . Indeterminate Greater than or equal to 80 pg/mL .... Positive The Fungitell test is indicated for presumptive diagnosis of fungal infection and should be used in conjunction with other diagnostic procedures. This test does not detect certain fungal species such as Cryptococcus, which produce very low levels of (1,3)-idap-F-yadrue. This test will not detect the zygomycetes, such as Absidia, Mucor, and Rhizopus, which are not known to produce (1,3)-ovvl-G-hvynlt. In addition, the yeast phase of Blastomyces dermatitidis produces little (1,3)-nkkz-F-rpqaks and may not be detected by the assay. Performed By: [facility] [address] [place] [id number] [employer]: Jorge Carrion MD, PhD CLIA Number: [id number] REASON FOR VISIT [id number] 1 Week F/U Medications Medication SIG (Take, Route, Frequency, Duration) Notes Start Date End Date Status Metoprolol Succinate ER 50 MG Tablet Extended Release 24 Hour 1 tablet Orally Once a day Active Martha Allergy 60 MG Tablet 1 tablet as needed Orally Twice a day Active Acetaminophen 325 MG Tablet 1 tablet as needed Orally every 4 hrs Active Lidocaine & Emollient 5 % Therapy Pack as directed Externally Active Omeprazole 20 MG Capsule Delayed Release 1 capsule 30 minutes before morning meal Orally Once a day Active Duloxetine & Lidocaine-Menthol Active cyclobenzaprine *Reorder from [facility] for eRx and Interaction Alerts* Active Topiramate *Pick strength-form from [facility] for eRX* Active Meloxicam *[facility]* Active Omeprazole *[facility] for [facility]* Active tramadol *Reorder from [facility] for eRx and Interaction Alerts* Active Zofran 4 MG Tablet 1 tablet Orally q6h; Duration: 7 days may take 1 every 6 hours as needed for nausea. 09/03/2019 Not-Taking [place] 10-325 MG Tablet 1 tablet as needed Orally every 4 hrs; Duration: 7 days may take every 4-6 hours as needed for pain. Do not exceed taking 5 tablets per day. 09/03/2019 Not-Taking Valium 10 MG Tablet 1 tablet Orally One time; Duration: 1 days Bring prescription to appointment. 06/07/2020 Not-Taking Vital Signs Temperature 98.3 degrees Fahrenheit 11/04/19 25 Blood pressure systolic 125 mm Hg 11/04/19 25 Blood pressure diastolic 73 mm Hg 025 Heart Rate 83 /min 11/03/2024 Height 70.00 in 11/03/2024 Weight 240.96 lbs 11/03/2024 BMI 34.57 kg/m2 11/03/2024 Oximetry 97 % 11/03/2024 Height-cm 177.80 cm 11/03/2024 Weight-kg 109.3 kg 11/03/2024 Encounters Encounter Location Date Provider Diagnosis [facility] Internal Medicine & Infectious Disease [address] [place] [address] 11/03/2024 Isatu Steve Bacteremia R78.81 and Recurrent headache R51.9 Assessments Encounter Date Diagnosis (ICD Code) Assessment Notes Treatment Notes Treatment Clinical Notes Section Notes 11/03/2024 Bacteremia (ICD-10 - R78.81) repeat surveillance blood cultures in 2 weeks 1. 43-year-old white male with history of OA, lumbar nerve stimulator, neuropathy and PTSD 2. Headache, AMS, and fever with no known source - H/o TIA diagnosed 10-12-24 on Plavix - Back stimulator in place, did not have MRI of the brain 3. LABS; 10-14-24; 2/4 BC S. epi (R; tetracycline) 10-16-24; BC NEG 10-15-24; LP CSF CoNS, corynebacterium 10-15-24; W 9.7, Power Cutting Machine Operator 0.65, Crp <0.50 10-25-24 W 8.0, Power Cutting Machine Operator 0.71, Power Cutting Machine Operator <0.50 4. 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 Antibiotics; Zyvox, Rifampin day #14 11-03-24; DC all antibiotics 6. Multiple + ROS, Continued headaches, muscle spasms numbness and tingling Recommend repeat LP and labs Will consult with Dr. Garza on this difficult case he will require extensive follow-up and referral to Neurologist 11/03/2024 Recurrent headache (ICD-10 - R51.9) 1. 43-year-old white male with history of OA, lumbar nerve stimulator, neuropathy and PTSD 2. Headache, AMS, and fever with no known source - H/o TIA diagnosed 10-12-24 on Plavix - Back stimulator in place, did not have MRI of the brain 3. LABS; 10-14-24; 2/4 BC S. epi (R; tetracycline) 10-16-24; BC NEG 10-15-24; LP CSF CoNS, corynebacterium 10-15-24; W 9.7, Power Cutting Machine Operator 0.65, Crp <0.50 10-25-24 W 8.0, Power Cutting Machine Operator 0.71, Power Cutting Machine Operator <0.50 4. 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 Antibiotics; Zyvox, Rifampin day #14 11-03-24; DC all antibiotics 6. Multiple + ROS, Continued headaches, muscle spasms numbness and tingling Recommend repeat LP and labs Will consult with Dr. Garza on this difficult case he will require extensive follow-up and referral to Neurologist 11/03/2024 Other Hospital record s reviewed, medication list reviewed and reconciled 1. 43-year-old white male with history of OA, lumbar nerve stimulator, neuropathy and PTSD 2. Headache, AMS, and fever with no known source - H/o TIA diagnosed 10-12-24 on Plavix - Back stimulator in place, did not have MRI of the brain 3. LABS; 10-14-24; 2/4 BC S. epi (R; tetracycline) 10-16-24; BC NEG 10-15-24; LP CSF CoNS, corynebacterium 10-15-24; W 9.7, Power Cutting Machine Operator 0.65, Crp <0.50 10-25-24 W 8.0, Power Cutting Machine Operator 0.71, Power Cutting Machine Operator <0.50 4. 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 Antibiotics; Zyvox, Rifampin day #14 11-03-24; DC all antibiotics 6. Multiple + ROS, Continued headaches, muscle spasms numbness and tingling Recommend repeat LP and labs Will consult with Dr. Garza on this difficult case he will require extensive follow-up and referral to Neurologist Plan Of Treatment Treatment Notes Assessment Notes Bacteremia repeat surveillance blood cultures in 2 weeks Other Hospital records rev iewed, medication list reviewed and reconciled Next Appt Details Follow Up: next week with Dr . Kayla, Reason: Hospital lab f/u Provider Name:Yuval orozco, 11/12/2024 12:30:00 PM, [address], [facility], [place], [address], History and Physical Notes * Examination Category Sub-Category Detail Notes Category Not es General Examination GENERAL APPEARANCE: alert, w ell hydrated, in no distress, converses well HEAD: normocephalic, atrau matic EYES: extraocular movement intact (EOMI), PERRL; normal conjunctiva HEART: Regular rate and rhy thm, S1 S2 normal LUNGS: clear to auscultatio n bilaterally, no wheezes, rales, or rhonchi ABDOMEN: bowel sounds present , soft, nontender, nondistended NEUROLOGIC: oriented, cerebellar function normal, cognitive exam grossly normal, cranial nerves 2-12 grossly intact, gait normal, motor strength normal upper and lower extremities SKIN: Tinea rash to left f lank PSYCH: cooperative with exa m, good eye contact, mood/affect full range, speech clear, thought content without suicidal ideation or delusions, thought process logical, goal directed, answering questions appropriately Progress Notes * EDWIN RODRIGUEZOB:[birth year] (43 yo M)Acc No.[id number]:11/03/2024 Patient: MINDI MOREAU Provider: Sanjeev Wilson APRN :1980 A ge:43 Y S ex:Male Date:11/03/2024 Address:[address] [place] [address], [id number] Pcp:[facility] Check In:01:55 PM CSTCheck O ut:03:43 PM [facility] MD Subjective: * Chief Complaints: * 6 [id number] 1 Week F/U * HPI: P rovicaren Note: HFU - The patient is a 43 yo white male with a history of OA, lumbar nerve stimulator, neuropathy. Presented to the ER with AMS, and Left sided numbness and paresthesias. He has a headache. Patient was recently admitted at [facility] for right sided weakness and headache. CTA head and neck from 10/12/2024 showed a 70% high- grade stenosis in the right posterior cerebral artery and a 50% stenosis of the proximal right. Patient was diagnosed with TIA and discharged on plavix on 10-12-24. He had periodic AMS for about 2 weeks. He has a low grade fever prior to hospitalization. He had an extensive lab and diagnostic w/u. Diagnosed with Aseptic Meningitis. 10-14-24 2/ BC + S. epi. Repeat BC neg 10-16-24. He has a back stimulator in place, neurosurgery was consulted, CT scan did not reveal abscess. He was discharged with Zyvox and rifampin. Pt reports he has had continued symptoms after dc, some stool incontinence, muscle spams in his hands, numbness in his forearm that lasts for hours, continued headaches and rash to his side. He was not able to have an MRI inpatient due to his back stimulator. * ROS: G eneral - Multi System: Constitutional D enies, fever, chills, weakness, fatigue, poor appetite, unexplained weight loss. E ar, Nose, Mouth, Throat D enies, ear pain, sore throat, sinus congestion, nasal drainage. C ardiovascular D enies any recent chest pain, palpitations or syncope. R espiratory D enies any shortness of breath, cough, or hemoptysis. G astrointestinal R eports, abdominal pain, nausea, vomiting, diarrhea. G enitourinary D enies dysuria, urinary frequency, or hematuria. M usculoskeletal D enies any joint pain or swelling, no recent trauma.?Integumentary D enies any rashes, bruising, or skin changes. N eurologic R eports, numbness, dizziness. * Medications: T akingDuloxetine & Lidocaine-Menthol Metoprolol Succinate ER 50 MG Tablet Extended Release 24 Hour 1 tablet Orally Once a day Omeprazole 20 MG Capsule Delayed Release 1 capsule 30 minutes before morning meal Orally Once a day Lidocaine & Emollient 5 % Therapy Pack as directed Externally Acetaminophen 325 MG Tablet 1 tablet as needed Orally every 4 hrs Martha Allergy 60 MG Tablet 1 tablet as needed Orally Twice a day tramadol , Notes to Pharmacist: *Reorder from [facility] for eRx and Interaction Alerts*Topiramate , Notes to Pharmacist: *Pick strength-form from [facility] for eRX*cyclobenzaprine , Notes to Pharmacist: *Reorder from [facility] for eRx and Interaction Alerts*Meloxicam , Notes to Pharmacist: *[facility]*Omeprazole , Notes to Pharmacist: *[facility]*Taking Duloxetine & Lidocaine-Menthol Taking Metoprolol Succinate ER 50 MG Tablet Extended Release 24 Hour 1 tablet Orally Once a day Taking Omeprazole 20 MG Capsule Delayed Release 1 capsule 30 minutes before morning meal Orally Once a day Taking Lidocaine & Emollient 5 % Therapy Pack as directed Externally Taking Acetaminophen 325 MG Tablet 1 tablet as needed Orally every 4 hrs Taking Martha Allergy 60 MG Tablet 1 tablet as needed Orally Twice a day Taking tramadol , Notes to Pharmacist: *[facility] and Interaction Alerts*Taking Topiramate , Notes to Pharmacist: *[facility] from [facility] for eRX*Taking cyclobenzaprine , Notes to Pharmacist: *[facility] for eRx and Interaction Alerts*Taking Meloxicam , Notes to Pharmacist: *[facility]*Taking Omeprazole , Notes to Pharmacist: *[facility] for [facility]*Not-TakingValium 10 MG Tablet 1 tablet Orally One time , Notes to Pharmacist: Bring prescription to appointment.[place] 10-325 MG Tablet 1 tablet as needed Orally every 4 hrs , Notes to Pharmacist: may take every 4-6 hours as needed for pain. Do not exceed taking 5 tablets per day.Zofran 4 MG Tablet 1 tablet Orally q6h , Notes to Pharmacist: may take 1 every 6 hours as needed for nausea.Not-Taking Valium 10 MG Tablet 1 tablet Orally One time , Notes to Pharmacist: Bring prescription to appointment.Not-Taking [place] 10-325 MG Tablet 1 tablet as needed Orally every 4 hrs , Notes to Pharmacist: may take every 4-6 hours as needed for pain. Do not exceed taking 5 tablets per day.Not-Taking Zofran 4 MG Tablet 1 tablet Orally q6h , Notes to Pharmacist: may take 1 every 6 hours as needed for nausea. Objective: * Vitals: H t: 70.00 in, Wt:240.96lbs, Wt-k.3 kg, BMI:34.57Index, Temp:98.3F, BP:125/73mm Hg, HR:83/min, Oxygen sat %:97%, Ht-cm: 177.80 cm. * Examination: G eneral Examination: GENERAL APPEARANCE: a lert, well hydrated, in no distress, converses well. HEAD: n ormocephalic, atraumatic. EYES: e xtraocular movement intact (EOMI), PERRL; normal conjunctiva. SKIN: T inea rash to left flank. HEART: R egular rate and rhythm, S1 S2 normal. LUNGS: c lear to auscultation bilaterally, no wheezes, rales, or rhonchi. ABDOMEN: b owel sounds present, soft, nontender, nondistended. NEUROLOGIC: o riented, cerebellar function normal, cognitive exam grossly normal, cranial nerves 2-12 grossly intact, gait normal, motor strength normal upper and lower extremities. PSYCH: c ooperative with exam, good eye contact, mood/affect full range, speech clear, thought content without suicidal ideation or delusions, thought process logical, goal directed, answering questions appropriately. Assessment: * Assessment: 1. B acteremia - R78.81 (Primary) 2 . R ecurrent headache - R51.9 ? 1. 43-year-old white male wi th history of OA, lumbar nerve stimulator, neuropathy and PTSD 2. Headache, AMS, and fever with no known source - H/o TIA diagnosed 10-12-24 on Plavix - Back stimulator in place, did not have MRI of the brain 3. LABS; 10-14-24; 2/4 BC S. epi (R; tetracycline) 10-16-24; BC NEG 10-15-24; LP CSF CoNS, corynebacterium 10-15-24; W 9.7, Power Cutting Machine Operator 0.65, Crp <0.50 10-25-24 W 8.0, Power Cutting Machine Operator 0.71, Power Cutting Machine Operator <0.50 4. 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 Antibiotics; Zyvox, Rifampin day #14 11-03-24; DC all antibiotics 6. Multiple + ROS, Continued headaches, muscle spasms numbness and tingling Recommend repeat LP and labs Will consult with Dr. Garza on this difficult case he will require extensive follow-up and referral to Neurologist Plan: * Treatment: Value Reference Range W BC 5.5 4.5-11.0 - X10'3 * R BC 4.81 4.50-5.90 - X10'6 * H gb 14.3 13.5-17.5 - G/DL * H ct 45.3 41.0-53.0 - % * M CV 94.2 80.0-100.0 - FL * M CH 29.7 27.0-31.0 - PG * M CHC 31.6 31.0-37.0 - G/DL * P latelet 192 150-400 - X10'3 * R DW-SD 49.6 HI 35.0-49.0 - FL * R DW-CV 14.7 12.2-15.6 - % * M PV 10.0 9.2-12.0 - FL * N eutro Auto% 53.7 40.0-70.0 - % * L ymph Auto% 31.2 22.0-44.0 - % * M corine Auto% 9.1 HI 3.0-7.0 - % * E os Auto% 4.4 HI 2.0-4.0 - % * B aso Auto% 1.1 HI 0.0-1.0 - % * I mm Gran% .5 HI .0-.4 - % * N eutro Abs 2.96 .80-7.70 - * L ymph Abs 1.72 .10-4.10 - * M corine Abs .50 .20-1.00 - * E os Abs .24 .00-.40 - * B aso Abs .06 .00-.20 - * I mm Gran Abs .03 .00-.10 - * N RBC# .00 .00-.20 - * N RBC% .00 .00-.20 - /100 intac t WBC's * A bsolute Neutrophil Count 2960 NA - CELLS/MCL * This lab was reviewed by Kaleb Wilson on 11/05/2024 at 09:51 AM CDT ?LAB: Comprehensive Metabolic Panel (CMP) 36302* Value Reference Range S odium 141 136-145 - MMOL/L * P otassium 4.5 3.5-5.1 - MMOL/L * C hloride 101 98-107 - MMOL/L * C O2 32.2 HI 20.0-31.0 - MMOL/L * G lucose Serum 88 71-110 - MG/DL * B UN 10 7-21 - MG/DL * C reat .63 .57-1.17 - MG/DL * A nion Gap 12 5-15 - * B UN/Creat Ratio 15.9 12.0-20.0 - % * T otal Protein 6.4 5.8-8.0 - G/DL * A lbumin 4.2 3.2-4.8 - G/DL * C alcium 9.7 8.7-10.4 - MG/DL * A lk Phos 71 46-116 - * G lobulin 2.2 LOW 2.3-3.5 - G/DL * A lb/Glob 1.9 0.8-2.2 - * A ST/SGOT 18 15-37 - UNIT/L * B markus Total .4 .3-1.2 - MG/DL * A LT/SGPT 23 12-78 - UNIT/L * G FR 119.1 NA - ML/MIN/1.73M2 * O smo Serum,Measured 290 280-300 - MOSM/KG * This lab was reviewed by Kaleb Wilson on 11/05/2024 at 09:51 AM CDT ?LAB: CRP 90230* Value Reference Range C RP <.50 .40-1.00 - MG/DL * This lab was reviewed by Kaleb Wilson on 11/05/2024 at 09:51 AM CDT ?LAB: 1,3 Nbxd-Q-Oibqka (Fungitell) 79261* Value Reference Range 1 ,3 Gdfz-X-Rdbown 39 NA - pg/mL * 1 ,3 Mvkd-R-Jotbyx Interp Negative NA Negative - * This lab was reviewed by aKleb Wilson on 11/10/2024 at 08:34 AM CDT Notes: repeat surveillance blood cultures in 2 weeks???2.?Others? Notes: Hospital records reviewed, medication list reviewed and reconciled?? * Procedure Codes: 3 078F DIAST BP < 80 MM [id number] SYST BP LT 130 MM HG * Follow Up: n ext week with Dr. Garza (Reason: Hospital lab f/u) Billing Information: * Visit Code: 36117 Office Visit, Est Pt., Level 4. * Procedure Codes: 3078F DIAST BP < 80 MM HG. 3074F SYST BP LT 130 MM HG. * Sign off status: Completed true * Provider: Sanjeev Wilson APRN Date: 11/03/2024 Generated for Tita amin/Jordi/Mattie on: 11/11/2024 08:02 AM CDT
[2024-11-09] VITALS (15 sets, daily range): BP systolic 101–131; BP diastolic 53–82; PULSE 68–91; RESP 16–18; TEMP 36.5; O2SAT 94–100; BMI 33.4
--- NOTE | 2024-11-09 03:04 | ED_ITS ---
Documented by User: Roland South, DO 11/10/24 22:17 HPI - Weakness 2 General: Chief complaint: Weakness Stated complaint: WEAKNESS Time Seen by Provider: 11/09/24 03:02 History of Present Illness: 43-year-old male patient with circumoral paresthesias as well as paresthesias to the upper and lower extremities. He has had headaches. He has had nausea. He has had some generalized weakness mainly to the lower extremities. Has had an extensive workup for this from previous hospitalization. He was discharged from this hospital 3 days ago now. He returns this morning with the same complaint. Says that the paresthesias seem to improve on Saturday, but were worse on Saturday again. He was placed on Keppra, which does not seem to be helping significantly. No tonic-clonic activity. No symptoms of amnesia or syncope. No fever no cough. No abdominal pain. Related Data Home Medications ?Medication ?Instructions ?Recorded ?Confirmed loratadine 10 mg tablet 10 mg PO DAILY 03/06/2310/30 metoprolol tartrate 50 mg tablet 50 mg PO BID 03/06/23 11/09/24 omeprazole 20 mg capsule,delayed 20 mg PO BID 03/06/23 11/09/24 release acetaminophen 325 mg tablet 325 mg PO QID PRN Pain 02/2311/09/24 amlodipine 10 mg tablet 10 mg PO DAILY 11/09/2410/30 aspirin 81 mg tablet,delayed 81 mg PO DAILY 11/09/24 0 11/09/24 release diclofenac sodium 1 % topical gel 4 g topical QID 10/3011/09/24 empagliflozin 10 mg-metformin ER 1 tab PO DAILY 11/09/24 1,000 mg tablet,extended release 24hr levetiracetam 750 mg tablet 750 mg PO DAILY 11/09/24 0 11/09/24 Previous Rx's ?Medication ?Instructions ?Recorded prednisone 10 mg tablet See Rx Instructions PO .COMP DOMINIQUE 07/09/23 PRN joint pain #60 tabs Allergies Allergy/AdvReac Type Severity Reaction Status Date / Time losartan Allergy Severe throat Verified 09/24/23 13:04 swell lovastatin Allergy Severe dry mouth Verified 09/24/23 13:04 throat start to swell acetaminophen (From Percocet) AdvReac Intermediate pass out Verified 09/24/23 13:04 oxycodone (From Percocet) AdvReac Intermediate pass out Verified 09/24/23 13:04 PFSH ED 2 PFSH: Medical History Immunization counseling Seronegative rheumatoid arthritis of both hands High risk medication use Achilles tendinitis of both lower extremities Swelling of both parotid glands Inflammatory arthritis Arthritis Joint pain Hyperlipidemia History of hypertension Allergies Acne Hernia Surgical History H/O laminectomy History of spinal fusion Family History Other Arthritis Denies family history of Lupus (systemic lupus erythematosus) Rheumatoid arthritis Diabetes Heart disease Lung disease Cancer Hypertension Social History Smoking and tobacco/nicotine status: never used tobacco/nicotine Alcohol intake: current Alcohol intake frequency: few times a month Physical Exam 2 Const: COMMON NORMALS: no acute distress, patient oriented x3 and alert G ENERAL APPEARANCE: cooperative; not ill appearing and not frail appearing HENMT: COMMON NORMALS: normocephalic, atraumatic and Normal external nose present HEAD & SCALP: normocephalic and atraumatic FACE & SINUS: normal facial exam and face symmetric NOSE: Normal external nose present Eye: COMMON NORMALS: Equal, round and reactive pupils present and EOMs intact bilaterally PUPIL: Yes Equal, round and reactive pupils present Neck/C-Spine: GENERAL: Yes trachea midline Chest: CHEST: Yes Symmetrical chest wall rise Resp: COMMON NORMALS: normal respiratory effort, No retractions, No use of accessory muscles and clear to auscultation bilaterally AUSCULTATION: clear to auscultation bilaterally Cardio: COMMON NORMALS: regular rate and regular rhythm RATE: regular rate RHYTHM: regular rhythm GI: COMMON NORMALS: Normal to inspection, nondistended, normoactive bowel sounds present Extremity: COMMON NORMALS: no pedal edema Neuro: LAURO COMA SCALE: document GCS findings Lauro coma scale eye opening: Spontaneous Lauro coma scale verbal response: Orientated [place] coma scale motor response: Obey commands [place] coma scale total score: 15 COMMON NORMALS: patient oriented x3 SENSORIUM/ORIENTATION: Yes alert C OORDINATION/BALANCE: [id number] test normal and tandem gait normal S ENSORY EXAM: Yes extremities (intact) COORDINATION: [id number] test normal and tandem gait normal Psych: COMMON NORMALS: speech normal SPEECH: Yes normal speech Skin: COMMON NORMALS: no rashes or lesions noted GENERAL SKIN EXAM: no rashes or lesions noted Course 2 Vital Signs: Vital signs: Vital Signs Temperature 97.7 F 11/09/24 02:42 Pulse Rate 81 11/09/24 13:16 Respiratory Rate 16 11/09/24 08:54 Blood Pressure 128/75 11/09/24 13:16 Pulse Oximetry 96 11/09/24 13:16 Oxygen Delivery Me thod Room Air 11/09/24 12:55 MDM - Weakness Medical Decision Making Blood pressure in this patient was mildly soft on arrival. It is normal currently. Other vitals are normal. He is afebrile. His CBC is normal. His BMP is not remarkable. His head CT is negative. His CRP is 3. B12 and folate levels are normal. Certainly if his stroke had caused the symptoms prior, he would have all a noncontrast CT at this point. He is given an IV infusion of Depacon. He is also given a liter of fluid for initial soft blood pressure. Symptoms are the same patient is post to be scheduled for an outpatient MRI this week. We have a slot available at 7 AM. He will get MRI, and be discharged home. No need to wait on results. He is to have neurology follow-up as well. Lab Data 11/09/24 03:35 11/09/24 03:[address] 11/09/24 03:27 IMPRESSION: There is no evidence of acute intracranial abnormality. Laboratory Results WBC 6.16 10^3/uL (3.29-11.43) 11/09/24 03:35 RBC 4.40 10^6/uL (3.85-5.65) 11/09/24 03:35 Hgb 13.30 g/dL (11.27-16.99) 11/09/24 03:35 Hct 39.9 % (37-53) 11/09/24 03:35 MCV 90.7 fl (82-101) 11/09/24 03:35 MCH 30.2 pg (27-33) 11/09/24 03:35 MCHC 33.3 g/dL (30-55) 11/09/24 03:35 RDW 14.1 % (12.1-15.1) 11/09/24 03:35 Plt Count 163 10^3/cmm (157-399) 11/09/24 03:35 MPV 9.2 fL (7.4-10.4) 11/09/24 03:35 Neut % (Auto) 64.8 % 11/09/24 03:35 Lymph % (Auto) 22.1 % 11/09/24 03:35 [place] % (Auto) 8.1 % 11/09/24 03:35 Eos % (Auto) 3.4 % 11/09/24 03:35 Baso % (Auto) 0.6 % 11/09/24 03:35 Neut # (Auto) 3.99 10^3/uL (1.8-7.7) 11/09/24 03:35 Lymph # (Auto) 1.4 10^3/uL (0.8-4.8) 11/09/24 03:35 [place] # (Auto) 0.5 10^3/uL (0.2-0.9) 11/09/24 03:35 Eos # (Auto) 0.2 10^3/uL (0.0-0.8) 11/09/24 03:35 Baso # (Auto) 0.0 10^3/uL (0.0-0.1) 11/09/24 03:35 Nucleated RBC % (auto) 0 % 11/09/24 03:35 Nucleated RBCs # 0.0 /100WBC 11/09/24 03:35 PT 12.40 SECONDS (12.1-14.9) 11/09/24 03:35 INR 0.86 (0.8-1.2) 11/09/24 03:35 APTT 28.0 SECONDS (23.9-36.7) 11/09/24 03:35 Sodium 142 mmol/L (136-145) 11/09/24 03:35 Potassium 4.3 mmol/L (3.5-5.1) 11/09/24 03:35 Chloride 104 mmol/L (98-107) 11/09/24 03:35 Carbon Dioxide 29 mmol/L (22-29) 11/09/24 03:35 Anion Gap 13.3 (5-19) 11/09/24 03:35 BUN 13 mg/dL (6-20) 11/09/24 03:35 Creatinine 0.6 mg/dL (0.7-1.2) L 11/09/24 03:35 GFR Calculation 145.7 mL/min (90-130) H 11/09/24 03:35 Glucose 122 mg/dL (65-115) H 11/09/24 03:35 Calculated Osmolality 295 mOsm/kg (285-295) 11/09/24 03:35 Calcium 8.9 mg/dL (8.5-10.5) 11/09/24 03:35 Phosphorus 4.4 mg/dL (2.5-4.5) 11/09/24 03:35 Magnesium 2.0 mg/dL (1.7-2.3) 11/09/24 03:35 Total Bilirubin 0.3 mg/dL (0.15-1.2) 11/09/24 03:35 AST 11 U/L (0-40) 11/09/24 03:35 ALT 18 U/L (0-41) 11/09/24 03:35 Alkaline Phosphatase 63 U/L (40-130) 11/09/24 03:35 C-Reactive Protein 3.0 mg/L (0.0-4.9) 11/09/24 03:35 Total Protein 6.2 g/dL (6.6-8.7) L 11/09/24 03:35 Albumin 3.8 g/dL (3.5-5.2) 11/09/24 03:35 Globulin 2.4 g/dL (1.3-4.6) 11/09/24 03:35 Vitamin B12 882 pg/mL (232-1245) 11/09/24 03:35 Folate 15.5 ng/mL (4.5-32.2) 11/09/24 03:35 Urine Color Yellow (Yellow) 11/09/24 09:38 Urine Appearance Clear (CLEAR) 11/09/24 09:38 Urine pH 6.5 (5-7) 11/09/24 09:38 Ur Specific [place] 1.030 (1.005-1.030) 11/09/24 09:38 Urine Protein Negative (Negative) 11/09/24 09:38 Urine Glucose (UA) 3+ (Normal) H 11/09/24 09:38 Urine Ketones Trace (Negative) 11/09/24 09:38 Urine Blood Negative (Negative) 11/09/24 09:38 Urine Nitrate Negative (Negative) 11/09/24 09:38 Urine Bilirubin Negative (Negative) 11/09/24 09:38 Urine Urobilinogen 1.0 mg/dL (Negative) 11/09/24 09:38 Ur Leukocyte Esterase Negative (Negative) 11/09/24 09:38 Urine RBC 0-2 /hpf (0-2) 11/09/24 09:38 Urine WBC 0-5 /hpf (0-5) 11/09/24 09:38 Ur Squamous Epith Cells 0-5 /hpf (0-5) 11/09/24 09:38 Amorphous Sediment Not Reportable 11/09/24 09:38 Urine Bacteria None seen /hpf (NONE) 11/09/24 09:38 Hyaline Casts 0-4 /lpf H 11/09/24 09:38 Discharge Plan Discharge Patient Disposition: Left Against Medical Advice Clinical Impression: Facial paresthesia, Paresthesia of upper and lower extremities of both sides, Focal seizures Condition: Stable Prescriptions: No Action omeprazole 20 mg capsule,delayed release(DR/EC) 20 mg PO BID loratadine 10 mg tablet 10 mg PO DAILY metoprolol tartrate 50 mg tablet 50 mg PO BID prednisone 10 mg tablet See Rx Instructions PO .COMPLEX PRN (Reason: joint pain) Qty: 60 0RF Rx Instructions: take 1 or 2 tab daily for 3-7 days prn joint pain flare PO PRN; acetaminophen 325 mg Tablet 325 mg PO QID PRN (Reason: Pain) aspirin 81 mg tablet,delayed release (DR/EC) 81 mg PO DAILY amlodipine 10 mg Tablet 10 mg PO DAILY levetiracetam 750 mg tablet 750 mg PO DAILY diclofenac sodium 1 % Gel 4 g TOPICAL QID Rx Instructions: apply to single knee, ankle, foot; for foot includes sole/toes/top of foot empagliflozin-metformin 10-1,000 mg Tablet, Ir - Er, Biphasic 24hr 1 tab PO DAILY Referrals: Lev Hauser MD [Physician, Neurology] - 4-7 days Lencho Hernandez [Primary Care Provider] Patient Instructions: Paresthesia (ED), Recurrent Seizures in Adults (ED), Opioid Safety, Patient Portal & [facility] Instructions Activity Restrictions/Additional Instructions: Return for repeated episodes of seizure, or other complaints. Follow-up for your MRI as Instructed. Call your doctor later this morning, as they may wish to see you. Return for new or concerning symptoms. Print Language: Japanese Coding Level of Care Code ED Seamless Tube Mill Operator for Chg Fwd Documented by User: Cheryl Aaron MD 11/09/24 13:17 HPI - Weakness 2 General: Chief complaint: Weakness Stated complaint: WEAKNESS Time Seen by Provider: 11/09/24 03:02 Related Data Home Medications ?Medication ?Instructions ?Recorded ?Confirmed loratadine 10 mg tablet 10 mg PO DAILY 03/06/2310/30 metoprolol tartrate 50 mg tablet 50 mg PO BID 03/06/23 11/09/24 omeprazole 20 mg capsule,delayed 20 mg PO BID 03/06/23 11/09/24 release acetaminophen 325 mg tablet 325 mg PO QID PRN Pain 02/2311/09/24 amlodipine 10 mg tablet 10 mg PO DAILY 11/09/2410/30 aspirin 81 mg tablet,delayed 81 mg PO DAILY 11/09/24 0 11/09/24 release diclofenac sodium 1 % topical gel 4 g topical QID 10/3011/09/24 empagliflozin 10 mg-metformin ER 1 tab PO DAILY 11/09/24 1,000 mg tablet,extended release 24hr levetiracetam 750 mg tablet 750 mg PO DAILY 11/09/24 0 11/09/24 Previous Rx's ?Medication ?Instructions ?Recorded prednisone 10 mg tablet See Rx Instructions PO .COMP DOMINIQUE 07/09/23 PRN joint pain #60 tabs Allergies Allergy/AdvReac Type Severity Reaction Status Date / Time losartan Allergy Severe throat Verified 09/24/23 13:04 swell lovastatin Allergy Severe dry mouth Verified 09/24/23 13:04 throat start to swell acetaminophen (From Percocet) AdvReac Intermediate pass out Verified 09/24/23 13:04 oxycodone (From Percocet) AdvReac Intermediate pass out Verified 09/24/23 13:04 [facility] ED 2 PFSH: Medical History Immunization counseling Seronegative rheumatoid arthritis of both hands High risk medication use Achilles tendinitis of both lower extremities Swelling of both parotid glands Inflammatory arthritis Arthritis Joint pain Hyperlipidemia History of hypertension Allergies Acne Hernia Surgical History H/O laminectomy History of spinal fusion Family History Other Arthritis Denies family history of Lupus (systemic lupus erythematosus) Rheumatoid arthritis Diabetes Heart disease Lung disease Cancer Hypertension Social History Smoking and tobacco/nicotine status: never used tobacco/nicotine Alcohol intake: current Alcohol intake frequency: few times a month Physical Exam 2 Neuro: LAURO COMA SCALE: document GCS findings [place] coma scale total score: 15 Course 2 Vital Signs: Vital signs: Vital Signs Temperature 97.7 F 11/09/24 02:42 Pulse Rate 81 11/09/24 13:16 Respiratory Rate 16 11/09/24 08:54 Blood Pressure 128/75 11/09/24 13:16 Pulse Oximetry 96 11/09/24 13:16 Oxygen Delivery Me thod Room Air 11/09/24 12:55 MDM - Weakness Medical Decision Making Blood pressure in this patient was mildly soft on arrival. It is normal currently. Other vitals are normal. He is afebrile. His CBC is normal. His BMP is not remarkable. His head CT is negative. His CRP is 3. B12 and folate levels are normal. Certainly if his stroke had caused the symptoms prior, he would have all a noncontrast CT at this point. He is given an IV infusion of Depacon. He is also given a liter of fluid for initial soft blood pressure. Symptoms are the same patient is post to be scheduled for an outpatient MRI this week. We have a slot available at 7 AM. He will get MRI, and be discharged home. No need to wait on results. He is to have neurology follow-up as well. Patient did not want a wait for his MRI we had to wait for his to come up and bring his remote for his nerve stimulator he is signing out AMA at this time. Lab Data 11/09/24 03:35 11/09/24 03:[address] 11/09/24 03:27 IMPRESSION: There is no evidence of acute intracranial abnormality. Laboratory Results WBC 6.16 10^3/uL (3.29-11.43) 11/09/24 03:35 RBC 4.40 10^6/uL (3.85-5.65) 11/09/24 03:35 Hgb 13.30 g/dL (11.27-16.99) 11/09/24 03:35 Hct 39.9 % (37-53) 11/09/24 03:35 MCV 90.7 fl (82-101) 11/09/24 03:35 MCH 30.2 pg (27-33) 11/09/24 03:35 MCHC 33.3 g/dL (30-55) 11/09/24 03:35 RDW 14.1 % (12.1-15.1) 11/09/24 03:35 Plt Count 163 10^3/cmm (157-399) 11/09/24 03:35 MPV 9.2 fL (7.4-10.4) 11/09/24 03:35 Neut % (Auto) 64.8 % 11/09/24 03:35 Lymph % (Auto) 22.1 % 11/09/24 03:35 [place] % (Auto) 8.1 % 11/09/24 03:35 Eos % (Auto) 3.4 % 11/09/24 03:35 Baso % (Auto) 0.6 % 11/09/24 03:35 Neut # (Auto) 3.99 10^3/uL (1.8-7.7) 11/09/24 03:35 Lymph # (Auto) 1.4 10^3/uL (0.8-4.8) 11/09/24 03:35 [place] # (Auto) 0.5 10^3/uL (0.2-0.9) 11/09/24 03:35 Eos # (Auto) 0.2 10^3/uL (0.0-0.8) 11/09/24 03:35 Baso # (Auto) 0.0 10^3/uL (0.0-0.1) 11/09/24 03:35 Nucleated RBC % (auto) 0 % 11/09/24 03:35 Nucleated RBCs # 0.0 /100WBC 11/09/24 03:35 PT 12.40 SECONDS (12.1-14.9) 11/09/24 03:35 INR 0.86 (0.8-1.2) 11/09/24 03:35 APTT 28.0 SECONDS (23.9-36.7) 11/09/24 03:35 Sodium 142 mmol/L (136-145) 11/09/24 03:35 Potassium 4.3 mmol/L (3.5-5.1) 11/09/24 03:35 Chloride 104 mmol/L (98-107) 11/09/24 03:35 Carbon Dioxide 29 mmol/L (22-29) 11/09/24 03:35 Anion Gap 13.3 (5-19) 11/09/24 03:35 BUN 13 mg/dL (6-20) 11/09/24 03:35 Creatinine 0.6 mg/dL (0.7-1.2) L 11/09/24 03:35 GFR Calculation 145.7 mL/min (90-130) H 11/09/24 03:35 Glucose 122 mg/dL (65-115) H 11/09/24 03:35 Calculated Osmolality 295 mOsm/kg (285-295) 11/09/24 03:35 Calcium 8.9 mg/dL (8.5-10.5) 11/09/24 03:35 Phosphorus 4.4 mg/dL (2.5-4.5) 11/09/24 03:35 Magnesium 2.0 mg/dL (1.7-2.3) 11/09/24 03:35 Total Bilirubin 0.3 mg/dL (0.15-1.2) 11/09/24 03:35 AST 11 U/L (0-40) 11/09/24 03:35 ALT 18 U/L (0-41) 11/09/24 03:35 Alkaline Phosphatase 63 U/L (40-130) 11/09/24 03:35 C-Reactive Protein 3.0 mg/L (0.0-4.9) 11/09/24 03:35 Total Protein 6.2 g/dL (6.6-8.7) L 11/09/24 03:35 Albumin 3.8 g/dL (3.5-5.2) 11/09/24 03:35 Globulin 2.4 g/dL (1.3-4.6) 11/09/24 03:35 Vitamin B12 882 pg/mL (232-1245) 11/09/24 03:35 Folate 15.5 ng/mL (4.5-32.2) 11/09/24 03:35 Urine Color Yellow (Yellow) 11/09/24 09:38 Urine Appearance Clear (CLEAR) 11/09/24 09:38 Urine pH 6.5 (5-7) 11/09/24 09:38 Ur Specific [place] 1.030 (1.005-1.030) 11/09/24 09:38 Urine Protein Negative (Negative) 11/09/24 09:38 Urine Glucose (UA) 3+ (Normal) H 11/09/24 09:38 Urine Ketones Trace (Negative) 11/09/24 09:38 Urine Blood Negative (Negative) 11/09/24 09:38 Urine Nitrate Negative (Negative) 11/09/24 09:38 Urine Bilirubin Negative (Negative) 11/09/24 09:38 Urine Urobilinogen 1.0 mg/dL (Negative) 11/09/24 09:38 Ur Leukocyte Esterase Negative (Negative) 11/09/24 09:38 Urine RBC 0-2 /hpf (0-2) 11/09/24 09:38 Urine WBC 0-5 /hpf (0-5) 11/09/24 09:38 Ur Squamous Epith Cells 0-5 /hpf (0-5) 11/09/24 09:38 Amorphous Sediment Not Reportable 11/09/24 09:38 Urine Bacteria None seen /hpf (NONE) 11/09/24 09:38 Hyaline Casts 0-4 /lpf H 11/09/24 09:38 All radiology interpretation(s) finalized by discharge Discharge Plan Discharge Patient Disposition: Left Against Medical Advice Clinical Impression: Facial paresthesia, Paresthesia of upper and lower extremities of both sides, Focal seizures Condition: Stable Prescriptions: No Action omeprazole 20 mg capsule,delayed release(DR/EC) 20 mg PO BID loratadine 10 mg tablet 10 mg PO DAILY metoprolol tartrate 50 mg tablet 50 mg PO BID prednisone 10 mg tablet See Rx Instructions PO .COMPLEX PRN (Reason: joint pain) Qty: 60 0RF Rx Instructions: take 1 or 2 tab daily for 3-7 days prn joint pain flare PO PRN; acetaminophen 325 mg Tablet 325 mg PO QID PRN (Reason: Pain) aspirin 81 mg tablet,delayed release (DR/EC) 81 mg PO DAILY amlodipine 10 mg Tablet 10 mg PO DAILY levetiracetam 750 mg tablet 750 mg PO DAILY diclofenac sodium 1 % Gel 4 g TOPICAL QID Rx Instructions: apply to single knee, ankle, foot; for foot includes sole/toes/top of foot empagliflozin-metformin 10-1,000 mg Tablet, Ir - Er, Biphasic 24hr 1 tab PO DAILY Referrals: Lev Hauser MD [Physician, Neurology] - 4-7 days Lencho Hernandez [Primary Care Provider] Patient Instructions: Paresthesia (ED), Recurrent Seizures in Adults (ED), Opioid Safety, Patient Portal & [facility] Instructions Activity Restrictions/Additional Instructions: Return for repeated episodes of seizure, or other complaints. Follow-up for your MRI as Instructed. Call your doctor later this morning, as they may wish to see you. Return for new or concerning symptoms. Print Language: Japanese Coding Level of Care Code ED Seamless Tube Mill Operator for Vannessa Aquino
--- NOTE | 2024-11-09 03:23 | ECG_ITS ---
[facility] Test Date: 2024-11-09 Pat Name: [facility] Department: Room: Gender: Male Hat Sizer: : 1980 Requested By: Roland Pate Order Number: [id number] Omer MD: Geovani Calero M.D. Measurements Intervals [place] Rate: 71 P: 53 NM: 165 QRS: 65 QRSD: 93 T: 36 QT: 389 QTc: 423 Interpretive Statements SINUS RHYTHM No previous ECG available for comparison Electronically Signed On 11-09-2024 22:45:21 CDT by Geovani Calero M.D. [email or web address] [id number]
--- NOTE | 2024-11-09 03:27 | CTR_ITS ---
PROCEDURE INFORMATION: Exam: CT Head Without Contrast Exam date and time: 11/09/2024 3:57 AM Age: 43 years old Clinical indication: Weakness, extremity; General weakness with bilateral hand numbness. History of TIA. ; Additional info: Paresthesias, weakness TECHNIQUE: Imaging protocol: Computed tomography of the head without contrast. Radiation optimization: All CT scans at this facility use at least one of these dose optimization techniques: automated exposure control; mA and/or kV adjustment per patient size (includes targeted exams where dose is matched to clinical indication); or iterative reconstruction. COMPARISON: CT head wo con* [id number] 11/05/2024 12:57 AM RADIATION DOSE METRICS: Total DLP (mGy-cm): 1088.55 FINDINGS: Brain: Interval stability is noted. No hemorrhage. There is a prominent cisterna magna. A Unremarkable white matter. No mass effect. Cerebral ventricles: No ventriculomegaly. Paranasal sinuses: Visualized sinuses are unremarkable. No fluid levels. Mastoid air cells: Visualized mastoid air cells are well aerated. Bones: Unremarkable. No acute fracture. Soft tissues: Unremarkable. CT/CT head wo con* [id number] IMPRESSION: There is no evidence of acute intracranial abnormality.
[2024-11-09 03:40] LABS: Hematocrit 39.9 % (37-53); Hemoglobin 13.30 g/dL (11.27-16.99); Mean Corpuscular HGB Conc 33.3 g/dL (30-55); Mean Corpuscular Hemoglobin 30.2 pg (27-33); Mean Corpuscular Volume 90.7 fl (82-101); Nucleated Red Blood Cells % 0 %; Platelet Count 163 10^3/cmm (157-399); Red Blood Count 4.40 10^6/uL (3.85-5.65); White Blood Count 6.16 10^3/uL (3.29-11.43)
[2024-11-09 03:54] LABS: INR 0.86 (0.8-1.2); Prothrombin Time 12.40 SECONDS (12.1-14.9)
[2024-11-09 03:55] LABS: Partial Thromboplastin Time 28.0 SECONDS (23.9-36.7)
[2024-11-09 04:02] LABS: Alanine Aminotransferase 18 U/L (0-41); Albumin Level 3.8 g/dL (3.5-5.2); Alkaline Phosphatase 63 U/L (40-130); Anion Gap 13.3 (5-19); Aspartate Amino Transferase 11 U/L (0-40); Blood Urea Nitrogen 13 mg/dL (6-20); Calcium 8.9 mg/dL (8.5-10.5); Carbon Dioxide 29 mmol/L (22-29); Chloride 104 mmol/L (98-107); Creatinine Clr Calc Pharmacy 189.2849; Globulin 2.4 g/dL (1.3-4.6); Glucose 122 mg/dL (65-115); Magnesium 2.0 mg/dL (1.7-2.3); Osmolality Calculated 295 mOsm/kg (285-295); Potassium 4.3 mmol/L (3.5-5.1); Sodium 142 mmol/L (136-145); Total Protein 6.2 g/dL (6.6-8.7)
[2024-11-09 04:17] LABS: Vitamin B12 882 pg/mL (232-1245)
[2024-11-09 10:01] LABS: Glucose Urine UA 3+ (Normal); Nitrate Urine Negative (Negative); Specific Gravity, Urine 1.030 (1.005-1.030)
[2024-11-09 10:06] LABS: Add Urine Microscopic? YES
--- OUTSIDE RECORDS SUMMARY | 2024-11-11 08:02 | XMS_ITS | Patient Health Record ---
Author Organization [facility] Address [address] [facility] [place], [place] [id number] Care Team Providers Care Package Line Operator Name Role Phone NICKBOBBI Primary Care Provider Silverio River Jr [phone] Allergies Allergen (clinical drug ingredient) Drug/Non Drug [...] Status W/U Status Risk Notes Problem Type 2 diabetes mellitus with diabetic neuropathy, unspecified whether fpc insulin use (E11.40) Active confirmed Vital Signs Respiratory Rate 22 /min 07/09/2024 Height 70 in 07/09/2024 Weight 270 lbs 07/09/2024 BMI 38.74 kg/m2 07/09/2024 Encounters Encounter Location Date Provider Diagnosis [facility] [address] [facility] [place], [place] [id number] 04/22/2024 Silverio [place] toenail L60.0 ; Type 2 diabetes mellitus with diabetic neuropathy, unspecified whether fpc insulin use E11.40 and Toe pain, left M79.675 [facility] [address] [facility] [place], [place] [id number] 04/30/2024 Silverio [place] toenail L60.0 ; Type 2 diabetes mellitus with diabetic neuropathy, unspecified whether director long term care insulin use E11.40 and Toe pain, left M79.675 [facility] [address] [facility] [place], [place] [id number] 07/09/2024 Silverio Covarrubias Jr Ingrown toenail L60.0 ; Type 2 diabetes mellitus with diabetic neuropathy, unspecified whether director long term care insulin use E11.40 ; Pain in left toe(s) M79.675 ; Pain in right toe(s) M79.674 ; Tinea unguium B35.1 and Corns/callosities L84 Assessments Encounter Date Diagnosis (ICD Code) Assessment Notes Treatment Notes Treatment Clinical Notes Section Notes 04/30/2024 Type 2 diabetes mellitus with diabetic neuropathy, unspecified whether fpc insulin use (ICD-10 - E11.40) 04/30/2024 Ingrown toenail (ICD-10 - L60.0) Discussed treatment, risks and complications. Bandage change performed. Discussed continued bandage changes. Discussed signs of infection. Discussed recurrence. Advised patient to continue with the triamcinolone cream. 04/22/2024 Type 2 diabetes mellitus with diabetic neuropathy, unspecified whether fpc insulin use (ICD-10 - E11.40) 04/22/2024 Ingrown [...] diabetes mellitus with diabetic neuropathy, unspecified whether fpc insulin use (ICD-10 - E11.40) 07/09/2024 Ingrown toenail (ICD-10 - L60.0) 04/22/2024 Toe pain, left (ICD-10 - M79.675) 07/09/2024 Pain in left toe(s) (ICD-10 - M79.675) 04/30/2024 Toe pain, left (ICD-10 - M79.675) 07/09/2024 Pain in right toe(s) (ICD-10 - M79.674) 07/09/2024 Tinea unguium (ICD-10 - B35.1) Discussed diabetic foot care, routine foot care, and director long term care blood sugar control. Debridement of nails 1 through 5 bilateral down 2mm as close to normal thickness as possible using mechanical and manual means. Again advised the patient on preventative care. Patient to apply topical antifungals to the nails. 07/09/2024 Corns/callositie s (ICD-10 - L84) Plan Of Treatment Next Appt Details Provider Name:Silverio Hernández Jr, 11/24/2024 08:15:00 AM, [address] [place] [address], [phone], Insurance Providers Payer Name Payer Address Payer Phone Subscriber Number Group Number Insured Name Patient Relationship to Insured Coverage Start Date Coverage End Date [facility] [address] [place] [address] [id number] MINDI FENG Self - patient is the insured Medical (General) History Medical History History ICD Code Back Pain DIABETIC Heel Pain High Blood Pressure Numbness/Tingling in feet/toes Sprains
--- OUTSIDE RECORDS SUMMARY | 2024-11-11 08:02 | XMS_ITS | Patient Health Record ---
Author Organization [facility], [facility] Address [address] [place] [address] Care Team Providers Care Attendant Arcade Name Role Phone Jade Barroso Primary Care Provider Unavaila ble Allergies Allergen (clinical drug ingredient) Drug/Non Drug Allergy documented on EMR Reaction Allergy Type Onset Date Status isotretinoin Isotretinoin Unknown Drug Allergy A ctive acetaminophen / oxycodone Percocet Unknown Drug Allergy Active oxycodone Oxycodone Unknown Drug Allergy Active Reason For Referral No Information Medications Medication SIG (Take, Route, Frequency, Duration) Notes Start Date End Date Status Omeprazole 20 MG 1 capsule 30 minutes before morning meal Orally Once a day Active Metoprolol Succinate ER 50 MG 1 tablet Orally Once a day Active Zofran 4 MG 1 tablet Orally q6h; Duration: 7 days may take 1 every 6 hours as needed for nausea. *Reorder from [employer] for eRx and Interaction Alerts* 09/03/2019 Not-Taking Duloxetine & Lidocaine-Menthol *Reorder from [employer] for eRx and Interaction Alerts* Active [place] 10-325 MG 1 tablet as needed Orally every 4 hrs; Duration: 7 days may take every 4-6 hours as needed for pain. Do not exceed taking 5 tablets per day. *Reorder from [employer] for eRx and Interaction Alerts* 09/03/2019 Not-Taking Acetaminophen 325 MG 1 tablet as needed Orally every 4 hrs Active Valium 10 MG 1 tablet Orally One time; Duration: 1 days Bring prescription to appointment. 06/07/2020 Not-Taking Lidocaine & Emollient 5 % as directed Externally *Reorder from [employer] for eRx and Interaction Alerts* Active Martha Allergy 60 MG 1 tablet as needed Orally Twice a day Active Immunizations Vaccine Route Administration Date Status Comme nts Influenza (whole), CPT 48564 Inactive Unknown 01/08/2018 Administered Influenza (whole), CPT 43042 Inactive Unknown 01/29/2018 Administered Problems Problem Type SNOMED Code ICD Code Onset Dates Problem Status W/U Status Risk Notes Problem Chronic pain (28742246) Other chronic pain (G89.29) Active confirmed Problem Chronic pain syndrome (956741544) Chronic pain syndrome (G89.4) Active confirmed Problem Cervicalgia (28553420) Cervicalgia (M54.2) Active confirmed Problem Pain in thoracic spine (607135689) Pain in thoracic spine (M54.6) Active confirmed Problem Chronic pain (47988213) Chronic pain (G89.29) Active confirmed Problem Spondylosis without myelopathy (05671419) Multilevel spondylosis (M47.819) Active confirmed Problem Male hypogonadism (49224768) Hypogonadism in male (E29.1) Active confirmed Problem Erectile dysfunction (disorder) (798881643) Erectile dysfunction, unspecified erectile dysfunction type (N52.9) Active confirmed Problem Testicular hypofunction (234511286) Testosterone deficiency in male (E29.1) Active confirmed Plan Of Treatment Pending Test Test Name Order Date Prothrombin Time 63860 08/27/2019 Prothrombin Time 87409 08/18/2019 Basic Metabolic Panel 92385 08/18/2019 Basic Metabolic Panel 34134 08/27/2019 CBC w\ Auto Diff 09482 08/19/2020 CBC w\ Auto Diff 31378 08/27/2019 CBC w\ Auto Diff 88783 08/18/2019 Estradiol Level 29394 08/19/2020 Follicle Stimulating Hormone (FSH) 39575 09/20/2020 Luteinizing Hormone 73315 09/20/2020 Partial Thromboplastin Time 10593 2019 Partial Thromboplastin Time 11946 2019 Prolactin 45525 08/19/2020 Thyroid Stimulating Hormone (TSH) 07893 08/19/2020 Semen Count Post Vasectomy 14188 021 Testosterone (Free&Total) Male 56927, 84 402, 06624 08/19/2020 Testosterone, Bio and SHBG, Adult Male 8 4403, 54825 08/19/2020 COVID 19 PCR--69814 09/01/2019 MRI Thoracic Spine w/o Cont-51857 2019 MRI Thoracic Spine w/o Cont-83951 2019 Thoracic Spine 1V-10327 09/02/2019 Thoracic Spine 1V-18328 09/02/2019 Future Test Test Name Order Date Semen Count Post Vasectomy 02359 021 Insurance Providers Payer Name Payer Address Payer Phone Subscriber Number Group Number Insured Name Patient Relationship to Insured Coverage Start Date Coverage End Date [employer] [address] [place], [place] [id number] [phone] [id number] Augie Lopez Self - patient is the insured [place] Medicare [address] [place] ANITHA MCDONOUGH [id number] Augie Lopez Self - patient is the insured Medical (General) History Medical History History ICD Code Chicken Pox Pneumonia Arthritis Hernia Back Trouble HBP GERD Sleep Apnea Surgical History Surgery Date(Month/Year) laminectomy 2009 spinal fusion 2010 hernia 2012 T9 laminectomy and SCS placement 08/2019 Hospitalization History Reason Date(Month/Year) above listed
--- OUTSIDE RECORDS SUMMARY | 2024-11-11 08:02 | XMS_ITS | Clinical Summary ---
Author Organization [facility] Address [address] [place] [address] Care Team Providers Care Ditch Tender Name Role Phone Unavailable Primary Care Provider Unavailabl e Encounters Date Type Department Care Team Description 11/09/2024 Outside Records [facility] [address] [facility] [place] [address] Interface, Provider 11/04/2024 Outside Records [facility] [address] [facility] [place] [address] Interface, Provider 11/04/2024 Travel from Last 3 [...]
--- OUTSIDE RECORDS SUMMARY | 2024-11-11 08:02 | XMS_ITS | Encounter Summary ---
Author Organization [facility] Address [address] [place] [address] Care Team Providers Care Buck Presser Name Role Phone Unavailable Primary Care Provider Unavailabl e Encounter Details Date Type Department Care Team (Late st Contact Info) Description 11/04/2024 Outside Records [facility] [address] [facility] [place] [address] Interface, Provider Social History Tobacco Use Types [...]
--- OUTSIDE RECORDS SUMMARY | 2024-11-11 08:02 | XMS_ITS | Encounter Summary ---
Author Organization [facility] Address [address] [place] [address] Care Team Providers Care Medical Biller Coder Name Role Phone Unavailable Primary Care Provider [...]
--- OUTSIDE RECORDS SUMMARY | 2024-11-11 08:02 | XMS_ITS | Patient Health Record ---
Author Organization [facility] Address [address] [place] [address] Care Team Providers Care Residential Tech Name Role Phone [facility] Primary Care Provider Yuval Murray JR Unavailable [phone] Jade Dsouza APRN Unavailable Unavailable Sergio Francois Unavailable [phone] Migration, Provider Unavailable Unavailable Isatu Wilson Unavailable [phone] Allergies Allergen (clinical drug ingredient) Drug/Non Drug Allergy documented on EMR Reaction Allergy Type Onset Date Status acetaminophen / oxycodone Percocet Unknown Drug Allergy Active isotretinoin Isotretinoin Unknown Drug Allergy A ctive oxycodone Oxycodone Unknown Drug Allergy Active Results Component Value Reference Range Flag Notes CT Chest, Abdomen, Pelvis w/ + w/o Contrast-[id number] (Not yet reviewed by provider) Interpretation: Performing Lab: Notes/Report: pbw=[id number]&org=iSite 1,3 Ypfv-Q-Kmcria (Fungitell ) 07478 Reviewed date:11/10/2024 08:34:07 AM Interpretation: Performing Lab: Notes/Report: Diagnosis Description: Bacteremia 1,3 Qqcz-V-Tfmnqf 39 NA 1,3 Jtgb-W-Oestir Interp Negative Negative NA INTERPRETIVE INFORMATION: (1,3)-rjuw-U-oqmwbb (Fungitell) Less than 31 pg/mL ................... Negative 31-59 pg/mL ....................... ... Negative 60-79 pg/mL ....................... ... Indeterminate Greater than or equal to 80 pg/mL .... Positive The Fungitell test is indicated for presumptive diagnosis of fungal infection and should be used in conjunction with other diagnostic procedures. This test does not detect certain fungal species such as Cryptococcus, which produce very low levels of (1,3)-enpe-E-fjhswa. This test will not detect the zygomycetes, such as Absidia, Mucor, and Rhizopus, which are not known to produce (1,3)-euzf-R-pzmpnf. In addition, the yeast phase of Blastomyces dermatitidis produces little (1,3)-anna-T-gmytqp and may not be detected by the assay. Performed By: [facility] [address] [place] [address] Professional Fighter: Jorge Carrion MD, PhD CLIA Number: [id number] CRP 39746 (Not yet reviewed by provider) Interpretation: Performing Lab: Notes/Report: 4419 CRP <.50 .40-1.00 MG/DL CBC w\ Auto Diff 66459 Reviewed date:11/05/2024 09:51:51 AM Interpretation: Performing Lab: [...] 40.0-70.0 % Lymph Auto% 31.2 22.0-44.0 % [place] Auto% 9.1 3.0-7.0 % HI Eos Auto% 4.4 2.0-4.0 % HI Baso Auto% 1.1 0.0-1.0 % HI Imm Gran% .5 .0-.4 % HI Neutro Abs 2.96 .80-7.70 Absolute Neutrophil Count 2960 NA Lymph Abs 1.72 .10-4.10 [place] Abs .50 .20-1.00 Eos Abs .24 .00-.40 Baso Abs .06 .00-.20 Imm Gran Abs .03 .00-.10 NRBC# .00 .00-.20 NRBC% .00 .00-.20 /100 intact WBC's Comprehensive Metabolic Pane l (CMP) 21484 Reviewed date:11/05/2024 09:51:51 AM Interpretation: Performing Lab: Notes/Report: Diagnosis Description: Bacteremia Glucose Serum 88 71-110 MG/DL Testing p erformed at [facility], [address] [place] [address] [place] [address]. CLIA ID#: [id number] BUN 10 7-21 MG/DL Creat .63 .57-1.17 MG/DL Y-geeske-h-benzoquinon e imine (NAPQI) is a metabolite of [...] UNIT/L Osmo Serum,Calculated 290 280-300 MOSM/KG CRP 97640 Reviewed date:11/05/2024 09:51:51 AM Interpretation: Performing Lab: Notes/Report: Diagnosis Description: Bacteremia CRP <.50 .40-1.00 MG/DL CT Chest, Abdomen, Pelvis w/ + w/o Contrast-[id number] (Not yet reviewed by provider) Interpretation: Performing Lab: Notes/Report: See Below For Report CT Chest, Abdomen, Pelvis w/ + w/o Contr 4419 Read See Below For Report Reason For Referral Reason Recurrent Upper Resp iratory Infections - PFT ONLY: [facility] - Scheduled Diagnosis 1 Acute upper respirat ory infection, unspecified (J06.9) Referring Provider First Name [facility] Referring Provider Last Name [facility] Referring Provider Speciality [facility] Referred Organization [facility] Referred Provider Sergio Francois Referred Address [address] [place] [address] [address]TA[address]AR,[place], [place],[address], Referred Provider Specialty Pulmonary Di seas General Notes Noelle Morrison 024 01:34:54 PM >Scheduled 12/30/23 @ 9:00 AM Referral Priority Routine Medications Medication SIG (Take, Route, Frequency, Duration) Notes Start Date End Date Status Metoprolol Succinate ER 50 MG Tablet Extended Release 24 Hour 1 tablet Orally Once a day Active Duloxetine & Lidocaine-Menthol Active cyclobenzaprine *Reorder from [employer] for eRx and Interaction Alerts* Active Topiramate *Pick strength-form from [employer] for eRX* Active Meloxicam *Pick strength-form from [employer] for eRX* Active Martha Allergy 60 MG Tablet 1 tablet as needed Orally Twice a day Active Acetaminophen 325 MG Tablet 1 tablet as needed Orally every 4 hrs Active Lidocaine & Emollient 5 % Therapy Pack as directed Externally Active Omeprazole 20 MG Capsule Delayed Release 1 capsule 30 minutes before morning meal Orally Once a day Active Omeprazole *[facility]* Active tramadol *[facility] for [facility] and Interaction Alerts* Active Zofran 4 MG Tablet 1 tablet Orally q6h; Duration: 7 days may take 1 every 6 hours as needed for nausea. 09/03/2019 Not-Taking [place] 10-325 MG Tablet 1 tablet as needed Orally every 4 hrs; Duration: 7 days may take every 4-6 hours as needed for pain. Do not exceed taking 5 tablets per day. 09/03/2019 Not-Taking Valium 10 MG Tablet 1 tablet Orally One time; Duration: 1 days Bring prescription to appointment. 06/07/2020 Not-Taking Immunizations Vaccine Route Administration Date Status Comme nts Influenza (whole), CPT 56676 Inactive Unknown 01/29/2018 Administered Influenza (whole), CPT 65231 Inactive Unknown 01/08/2018 Administered Social History Tobacco [...] Problem Type II diabetes mellitus without complication (584693189) Type 2 diabetes mellitus without complications (E11.9) Active confirmed Problem Chronic pain (87635006) Other chronic pain (G89.29) Active confirmed Problem Chronic pain syndrome (029661439) Chronic pain syndrome (G89.4) Active confirmed Problem Cervicalgia (42577321) Cervicalgia (M54.2) Active confirmed Problem Pain in thoracic spine (438712958) Pain in thoracic spine (M54.6) Active confirmed Problem Erectile dysfunction (disorder) (033489479) Erectile dysfunction, unspecified erectile dysfunction type (N52.9) Active confirmed Problem Male hypogonadism (85574390) Hypogonadism in male (E29.1) Active confirmed Problem Testicular hypofunction (730924400) Testosterone deficiency in male (E29.1) Active confirmed Problem Altered mental status (614224248) Altered mental status, unspecified altered mental status type (R41.82) Active confirmed Problem Chronic pain (73615107) Chronic pain (G89.29) Active confirmed Problem Spondylosis without myelopathy (55552011) Multilevel spondylosis (M47.819) Active confirmed Problem Metabolic encephalopathy (03676723) Acute metabolic encephalopathy (G93.41) Active confirmed Problem Skin sensation disturbance (99645403) Arm paresthesia, left (R20.2) Active confirmed Problem S/P placement of nerve stimulator (Z96.82) Active confirmed Problem Brain neurostimulator device in situ (376853424) Brain neurostimulator device in situ (Z96.82) Active [...] N/A Encounters Encounter Location Date Provider Diagnosis [facility] [address] [place] [address], [place] [address] 11/03/2024 Isatu [place] Bacteremia R78.81 and Recurrent headache R51.9 [facility] [address] [place] [address], [place] [address] 12/30/2023 Sergio Alessandro SOB (shortness of breath) on exertion R06.02 [facility] 0 0 01/26/2024 Provider Migration [facility] 0 0 01/25/[address] [facility] [address] [place] [address], [place] [address] 11/04/[address] [facility] [address] [place] [address], [place] [address] 11/03/2024 Isatu [place] Assessments Encounter Date Diagnosis (ICD Code) Assessment [...] LP CSF CoNS, corynebacterium 10-15-24; W 9.7, Data Operations Leader 0.65, Crp <0.50 10-25-24 W 8.0, Data Operations Leader 0.71, Data Operations Leader <0.50 4. Diagnostics; 10-13-24; CTA brain; High-grade [...] LP CSF CoNS, corynebacterium 10-15-24; W 9.7, Data Operations Leader 0.65, Crp <0.50 10-25-24 W 8.0, Data Operations Leader 0.71, Data Operations Leader <0.50 4. Diagnostics; 10-13-24; CTA brain; High-grade [...] LP CSF CoNS, corynebacterium 10-15-24; W 9.7, Data Operations Leader 0.65, Crp <0.50 10-25-24 W 8.0, Data Operations Leader 0.71, Data Operations Leader <0.50 4. Diagnostics; 10-13-24; CTA brain; High-grade [...] Test Test Name Order Date Prothrombin Time 27120 08/18/2019 Prothrombin Time 80446 08/27/2019 Basic Metabolic Panel (BMP) 07025 2019 Basic Metabolic Panel (BMP) 92091 2019 CBC w\ Auto Diff 73977 08/19/2020 CBC w\ Auto Diff 55519 08/18/2019 CBC w\ Auto Diff 08786 08/27/2019 Estradiol Level 40434 08/19/2020 Partial Thromboplastin Time 14863 2019 Partial Thromboplastin Time 79164 2019 Prolactin 17950 08/19/2020 Thyroid Stimulating Hormone (TSH) 92374 08/19/2020 Semen Count Post Vasectomy 31995 021 Testosterone (Free&Total) Male 01121, 84 402, 97102 08/19/2020 CRP 39722 10/15/2024 Testosterone, Bio and SHBG, Adult Male 8 4403, 30949 08/19/2020 CT Chest, Abdomen, Pelvis w/ + w/o Contr ast-[id number] 10/17/2024 CT Chest, Abdomen, Pelvis w/ + w/o Contr ast-[id number] 10/17/2024 MRI Thoracic Spine w/o Cont-50578 2019 MRI Thoracic Spine w/o Cont-68480 2019 Thoracic Spine 1V-84107 09/02/2019 Thoracic Spine 1V-08161 09/02/2019 COVID 19 PCR--09818 09/01/2019 Next Appt Details Provider Name:Yuval orozco, 11/12/2024 12:30:00 PM, [address] [place] [address], [address], Insurance Providers Payer Name Payer Address Payer Phone Subscriber Number Group Number Insured Name Patient Relationship to Insured Coverage Start Date Coverage End Date [place] Medicare [address] ANITHA DENSON [phone] [id number] MINDI FENG Self - patient is the insured [employer] [address] [place] [address] [phone] [id number] MINDI FENG Self - patient is the insured Medical (General) History Medical History History ICD Code Chicken Pox Pneumonia Arthritis Hernia Back Trouble HBP GERD Sleep Apnea Surgical History Surgery Date(Month/Year) laminectomy 2009 spinal fusion 2010 hernia 2013 T9 laminectomy and SCS placement 08/2019 Hernia repair Laminectomy Lumbar fusion Hospitalization History Reason Date(Month/Year) above listed
== END 2024-11-09 13:17 | disposition left against medical advice (07) ==
PROVIDERS: Emergency Medicine; Emergency Provider Emergency Medicine; PCP Nurse Practitioner Family
DX: R20.2 Paresthesia of skin (principal); G40.89 Other seizures; Z79.82 Long term (current) use of aspirin; E78.5 Hyperlipidemia, unspecified; I10 Essential (primary) hypertension
CPT/HCPCS: 36415; 70450; 80053; 81001; 82607; 82746; 83735; 84100; 85025; 85610; 85730; 86140; 93005; 96365; 99285; J3490

== ENCOUNTER 2024-11-18 00:07 | Emergency (ER) | payer OTHER, MEDICARE, SELFPAY ==
[2024-11-18] VITALS (11 sets, daily range): BP systolic 91–122; BP diastolic 41–79; PULSE 70–77; RESP 12–18; TEMP 36.8; O2SAT 93–98
--- OUTSIDE RECORDS SUMMARY | 2024-11-18 00:23 | XMS_ITS | Clinical Summary ---
Author Organization [facility] Address [address] [place] [address] Care Team Providers Care Mfts Name Role Phone Unavailable Primary Care Provider Unavailabl e Encounters Date Type Department Care Team Description 11/09/2024 Outside Records [facility] [address] [facility] [place] [address] Interface, Provider 11/04/2024 Outside Records [facility] [address] [facility] [place] [address] Interface, Provider 11/04/2024 Travel from Last 3 [...]
--- OUTSIDE RECORDS SUMMARY | 2024-11-18 00:23 | XMS_ITS | Encounter Summary ---
Author Organization [facility] Address [address] [place] [address] Care Team Providers Care Fnp Name Role Phone Unavailable Primary Care Provider Unavailabl e Encounter Details Date Type Department Care Team (Late st Contact Info) Description 11/04/2024 Outside Records [facility] [address] [facility] [place] [address] Interface, Provider Social History Tobacco Use Types [...]
--- OUTSIDE RECORDS SUMMARY | 2024-11-18 00:23 | XMS_ITS | Encounter Summary ---
Author Organization [facility] Address [address] [place] [address] Care Team Providers Care Senior Financial Consultant Name Role Phone Unavailable Primary Care Provider Unavailabl e Encounter Details Date Type Department Care Team (Late st Contact Info) Description 11/09/2024 Outside Records [facility] [address] [facility] [place] [address] Interface, Provider Social History Tobacco Use Types [...]
--- NOTE | 2024-11-18 00:26 | CTR_ITS ---
PROCEDURE INFORMATION: Exam: CT Head Without Contrast Exam date and time: 11/18/2024 12:37 AM Age: 43 years old Clinical indication: Stroke-like symptoms; Right upper extremity and right lower extremity numbness/paresthesia; Additional info: Symptoms of acute stroke TECHNIQUE: Imaging protocol: Computed tomography of the head without contrast. Radiation optimization: All CT scans at this facility use at least one of these dose optimization techniques: automated exposure control; mA and/or kV adjustment per patient size (includes targeted exams where dose is matched to clinical indication); or iterative reconstruction. Other technique: STROKE PROTOCOL was implemented. COMPARISON: CT head wo con* [id number] 11/09/2024 3:57 AM RADIATION DOSE METRICS: Total DLP (mGy-cm): 1150.14 FINDINGS: Brain: Normal. No hemorrhage. Unremarkable white matter. No mass effect. Cerebral ventricles: No ventriculomegaly. Paranasal sinuses: Visualized sinuses are unremarkable. No fluid levels. Mastoid air cells: Visualized mastoid air cells are well aerated. Bones: Unremarkable. No acute fracture. Soft tissues: Unremarkable. CT/CT head thrombolytic 75033 IMPRESSION: No acute intracranial abnormality. ASSESSMENT: ASPECTS ([place] Stroke Program Early CT Score) is 10.
--- NOTE | 2024-11-18 00:34 | W.ED.NEUROSD ---
Documented by User: ANITHA Phelan 11/18/24 16:13 HPI - Neuro Symptoms/Deficit General: Chief Complaint: Neuro Symptoms/Deficit Stated Complaint: right arm numbness Time Seen by Provider: 11/18/24 00:14 History of Present Illness: Patient is a 43-year-old gentleman with history of UNIQUE, HTN, diagnosis of TIA, abnormal EEG, and placed on Keppra, clopidogrel, and compliant to baby aspirin twice daily that presented with sensory changes to right distal arm, word salad, confusion. Patient states that he went to bed at 8 PM, and confirmed the history, awoke at 1030pm with sensory changes, confusion, and word salad. Patient was just here on 11/05 through 11/06 and seen by cardiology, and hospitalist. Patient has had multiple issues, and was seen by the [facility], as detailed below from records. He had a CTA in the past that showed segmental visualization of the right posterior cerebral artery with suspected 40% stenosis of the right P1, P2 segments. Echo does not note bubble study. Patient has been placed on Keppra for abnormal EEG in the past. Discharge summary 11/06/24: Augie Rodriguez is a 43 year old male with a past medical history of type 2 diabetes mellitus, rheumatoid arthritis, on Plaquenil, prednisone who presents to [facility] as a transfer from outside hospital due to concerns for left-sided facial droop, slurring speech, numbness and tingling of left lower face, left arm, symptoms began at 10:25 AM. -October 08 he was evaluated at the [facility], for intermittent headaches experienced pain in the right occiput region/base of his neck, associate with weakness and numbness along the right side of his body, he was also confused, his symptoms resolved upon arrival, he was placed on aspirin, Plavix following first TIA episode. -He also reports an infectious workup, receiving a lumbar puncture, was told he had some sort of infection? Was managed with IV vancomycin discharged on p.o. antibiotics but is not sure which p.o. divided he is currently taking - Patient reports on October 13 -CTA from 10/12/2024 showed there is segmental visualization of the right posterior cerebral artery with suspected 40% multifocal stenosis of the right P1 and P2 segments fed by the the posterior circulation, there is no focal stenosis or aneurysmal dilatation seen of the kake of [place] - Episode 11/04/2024 reports intermittent numbness at times left and right forearm, spasms of right hand, forearm, reported more left-sided numbness, slurred speech, confusion, was not responding appropriately, resolved on presentation to ER [facility], neurology consulted, not a tPA candidate, NIH stroke scale was 0, was transferred from [facility], CT head no acute findings, not a tPA candidate, transferred to [facility] - Echo 717 showed EF of 55 to 60%, mild mitral valve regurg, mild tricuspid regurg, trace aortic regurg mild pulmonic valvular regurgitation, UDS was positive for benzodiazepines, patient does report using clonazepam - Denies any fevers, chills, nausea, vomiting - No Bites or dog bites or scratches - [place], no exposure to chickens - No exposure to tuberculosis - He does have a maculopapular rash on his abdomen and back, however it is nonpruritic, nonpainful, not in a dermatomal fashion Associated symptoms: Deny chest pain, headache(s), nausea or vomiting Related Data Home Medications ?Medication ?Instructions ?Recorded ?Confirmed loratadine 10 mg tablet 10 mg PO DAILY 03/06/23 11/09/24 metoprolol tartrate 50 mg tablet 50 mg PO BID 03/06/23 11/09/24 omeprazole 20 mg capsule,delayed 20 mg PO BID 03/06/23 11/09/24 release acetaminophen 325 mg tablet 325 mg PO QID PRN Pain 11/09/24 11/09/24 amlodipine 10 mg tablet 10 mg PO DAILY 11/09/24 11/09/24 aspirin 81 mg tablet,delayed 81 mg PO DAILY 11/09/24 11/09/24 release diclofenac sodium 1 % topical gel 4 g topical QID 11/09/24 11/09/24 empagliflozin 10 mg-metformin ER 1 tab PO DAILY 11/09/24 11/09/24 1,000 mg tablet,extended release 24hr levetiracetam 750 mg tablet 750 mg PO DAILY 11/09/24 11/09/24 Previous Rx's ?Medication ?Instructions ?Recorded prednisone 10 mg tablet See Rx Instructions PO .COMPLEX 07/09/23 PRN joint pain #60 tabs Allergies Allergy/AdvReac Type Severity Reaction Status Date / Time losartan Allergy Severe throat Verified 09/24/23 13:04 swell lovastatin Allergy Severe dry mouth Verified 09/24/23 13:04 throat start to swell acetaminophen (From Percocet) AdvReac Intermediate pass out Verified 09/24/23 13:04 oxycodone (From Percocet) AdvReac Intermediate pass out Verified 09/24/23 13:04 Review of Systems Const: Denies: fever(s) or chills Eyes: Denies: change in vision or blurry vision ENMT: Denies: throat pain or dry mouth Card: Denies: chest pain or palpitations Resp: Denies: dyspnea or non-productive cough GI: Denies: abdominal pain, nausea or vomiting : Denies: flank pain or difficulty urinating Musc: Denies: neck pain, back pain, extremity pain, extremity swelling, joint pain or joint swelling Skin/Breast: Denies: rash or pruritus Neuro: Reports: numbness in extremities, confusion and Slurred speech present; Denies: headache(s), weakness in extremities, sensory changes, lack of coordination, difficulty walking, frequent falls, dizziness or seizure-like activity Psych: Denies: anxiety or depression Endo: Denies: polyuria or polydipsia Paco/Lymph: Denies: easy bruising or easy bleeding PFSH ED PFSH: Medical History (Updated 11/18/24 @ 00:58 by ANITHA Phelan) Immunization counseling Seronegative rheumatoid arthritis of both hands High risk medication use Achilles tendinitis of both lower extremities Swelling of both parotid glands Inflammatory arthritis Arthritis Joint pain Hyperlipidemia History of hypertension Allergies Acne Hernia Surgical History H/O laminectomy History of spinal fusion Family History Other Arthritis Denies family history of Lupus (systemic lupus erythematosus) Rheumatoid arthritis Diabetes Heart disease Lung disease Cancer Hypertension Social History Smoking and tobacco/nicotine status: never used tobacco/nicotine Alcohol intake: current Alcohol intake frequency: few times a month NIH stroke score NIHSS: Level Of Consciousness - 1a: 0 Level Of Consciousness Questions - 1b: Both Correct Level Of Consciousness Commands - 1c: Both Correct Best Gaze - 2: Normal Visual Donald - 3: No Visual Loss Facial Palsy - 4: Normal Motor Arm Right - 5: No Drift Motor Arm Left - 5: No Drift Motor Leg Right - 6: No Drift Motor Leg Left - 6: No Drift Limb Ataxia - 7: Absent Sensory - 8: Normal Best Language - 9: No Aphasia Dysarthia - 10: Normal Extinction And Inattention - 11: 1 Score: Total Score: 1 Physical Exam Const: COMMON NORMALS: no acute distress, average body habitus, patient oriented x3, no limitations, healthy appearing, alert and well nourished EXAM LIMITATIONS: no altered mental status, no behavioral limitations and no language barrier GENERAL APPEARANCE: cooperative; not comfortable HENMT: COMMON NORMALS: normocephalic and atraumatic HEAD & SCALP: normocephalic and atraumatic Eye: COMMON NORMALS: Equal, round and reactive pupils present and EOMs intact bilaterally PUPIL: Yes Equal, round and reactive pupils present Neck/C-Spine: COMMON NORMALS: full ROM and no lymphadenopathy Chest: COMMONS NORMALS: normal inspection of the chest and normal palpation of entire chest wall Resp: COMMON NORMALS: normal respiratory effort, No retractions and clear to auscultation bilaterally EFFORT & INSPECTION: Yes able to speak in complete sentences AUSCULTATION: clear to auscultation bilaterally Cardio: COMMON NORMALS: regular rate and regular rhythm RATE: regular rate RHYTHM: regular rhythm GI: COMMON NORMALS: Normal to inspection, nondistended, normoactive bowel sounds present and Soft to palpation PALPATION: Yes Soft to palpation : COMMON NORMALS: Yes no CVA tenderness BLADDER/KIDNEY EXAM: Yes no CVA tenderness Back/Pelvis: COMMON NORMALS: no CVA tenderness Extremity: COMMON NORMALS: normal to inspection, full ROM and capillary refill normal Neuro: COMMON NORMALS: patient oriented x3 SENSORIUM/ORIENTATION: Yes alert Psych: COMMON NORMALS: mental status grossly normal, Normal thought process present, cooperative, normal affect and speech normal SPEECH: Yes normal speech THOUGHT PROCESS: Normal thought process present Skin: COMMON NORMALS: no rashes or lesions noted and no wounds GENERAL SKIN EXAM: no rashes or lesions noted Course Consultations: Consultation #1: Discussed with Dr. Lopez immediately. She recommends outpatient echocardiogram with bubble study if not already done and do not repeat CTA. Since patient's symptoms are consistent with previous issues, and NIH is 1 on my review showing minimal confusion without word salad sensory or strength issues, tPA is not recommended. Dr. Lopez recommends following up with Joselito Cristiane on or Saturday. Consultation #2: [facility] reported negative CT of head study. Vital Signs: Vital signs: Vital Signs Temperature 98.2 F 11/18/24 00:16 Pulse Rate 70 11/18/24 02:30 Respiratory Rate 18 11/18/24 02:15 Blood Pressure 114/79 11/18/24 02:30 Pulse Oximetry 95 11/18/24 02:30 Oxygen Delivery Me thod Room Air 11/18/24 00:16 MDM - Neuro Symptoms/Deficit Medical Decision Making Patient is a 43-year-old male with UNIQUE, HTN, recently diagnosed with abnormal EEG, and worked up for CVA, on Keppra, clopidogrel, and aspirin twice daily. He returns ED with sensory changes to his right distal extremity that have now resolved, word salad that is now resolved, and minimal confusion. NIH is a 1. Last known well is 8 PM. Apparently awoke at 10:30 PM, however was brought to the ED approximately 12:30 PM. In any event his NIH is 1, discussed with neurology, that does not recommend tPA. Does not recommend repeating the CTA of the head and neck, and does recommend following up with her clinic nurse practitioner this week. This will be further arranged tomorrow to follow-up with Dr. Sauer. Lab Data 11/18/24 00:35 11/18/24 00:[address] 11/18/24 00:26 IMPRESSION: No acute intracranial abnormality. ASSESSMENT: ASPECTS ([place] Stroke Program Early CT Score) is 10. ADDENDUM: 11/18/24 0111 Findings were discussed with KATHERINE ARREDONDO at 11/18/2024 1:09 AM CDT. Laboratory Results WBC 6.01 10^3/uL (3.29-11.43) 11/18/24 00:35 RBC 4.32 10^6/uL (3.85-5.65) 11/18/24 00:35 Hgb 13.40 g/dL (11.27-16.99) 11/18/24 00:35 Hct 39.5 % (37-53) 11/18/24 00:35 MCV 91.4 fl (82-101) 11/18/24 00:35 MCH 31.0 pg (27-33) 11/18/24 00:35 MCHC 33.9 g/dL (30-55) 11/18/24 00:35 RDW 14.3 % (12.1-15.1) 11/18/24 00:35 Plt Count 177 10^3/cmm (157-399) 11/18/24 00:35 MPV 9.8 fL (7.4-10.4) 11/18/24 00:35 Neut % (Auto) 49.7 % 11/18/24 00:35 Lymph % (Auto) 34.6 % 11/18/24 00:35 Cochran % (Auto) 10.0 % 11/18/24 00:35 Eos % (Auto) 4.2 % 11/18/24 00:35 Baso % (Auto) 0.8 % 11/18/24 00:35 Neut # (Auto) 2.99 10^3/uL (1.8-7.7) 11/18/24 00:35 Lymph # (Auto) 2.1 10^3/uL (0.8-4.8) 11/18/24 00:35 Cochran # (Auto) 0.6 10^3/uL (0.2-0.9) 11/18/24 00:35 Eos # (Auto) 0.3 10^3/uL (0.0-0.8) 11/18/24 00:35 Baso # (Auto) 0.1 10^3/uL (0.0-0.1) 11/18/24 00:35 Nucleated RBC % (auto) 0 % 11/18/24 00:35 Nucleated RBCs # 0.0 /100WBC 11/18/24 00:35 PT 12.60 SECONDS (12.1-14.9) 11/18/24 00:35 INR 0.88 (0.8-1.2) 11/18/24 00:35 APTT 30.3 SECONDS (23.9-36.7) 11/18/24 00:35 Sodium 141 mmol/L (136-145) 11/18/24 00:35 Potassium 4.3 mmol/L (3.5-5.1) 11/18/24 00:35 Chloride 105 mmol/L (98-107) 11/18/24 00:35 Carbon Dioxide 26 mmol/L (22-29) 11/18/24 00:35 Anion Gap 14.3 (5-19) 11/18/24 00:35 BUN 13 mg/dL (6-20) 11/18/24 00:35 Creatinine 0.6 mg/dL (0.7-1.2) L 11/18/24 00:35 GFR Calculation 145.7 mL/min (90-130) H 11/18/24 00:35 Glucose 95 mg/dL (65-115) 11/18/24 00:35 POC Glucose 94 mg/dL (70-110) 11/18/24 00:29 Calculated Osmolality 292 mOsm/kg (285-295) 11/18/24 00:35 Calcium 8.8 mg/dL (8.5-10.5) 11/18/24 00:35 Total Bilirubin 0.3 mg/dL (0.15-1.2) 11/18/24 00:35 AST 14 U/L (0-40) 11/18/24 00:35 ALT 13 U/L (0-41) 11/18/24 00:35 Alkaline Phosphatase 62 U/L (40-130) 11/18/24 00:35 Total Protein 6.5 g/dL (6.6-8.7) L 11/18/24 00:35 Albumin 4.0 g/dL (3.5-5.2) 11/18/24 00:35 Globulin 2.5 g/dL (1.3-4.6) 11/18/24 00:35 Urine Color Yellow (Yellow) 11/18/24 01:20 Urine Appearance Clear (CLEAR) 11/18/24 01:20 Urine pH 5.5 (5-7) 11/18/24 01:20 Ur Specific [place] 1.035 (1.005-1.030) H 11/18/24 01:20 Urine Protein Trace (Negative) A 11/18/24 01:20 Urine Glucose (UA) 3+ (Normal) H 11/18/24 01:20 Urine Ketones Trace (Negative) 11/18/24 01:20 Urine Blood Negative (Negative) 11/18/24 01:20 Urine Nitrate Negative (Negative) 11/18/24 01:20 Urine Bilirubin Negative (Negative) 11/18/24 01:20 Urine Urobilinogen 1.0 mg/dL (Negative) 11/18/24 01:20 Ur Leukocyte Esterase Negative (Negative) 11/18/24 01:20 Urine RBC Rare /hpf (0-2) 11/18/24 01:20 Urine WBC None /hpf (0-5) 11/18/24 01:20 Ur Squamous Epith Cells None /hpf (0-5) 11/18/24 01:20 Amorphous Sediment Not Reportable 11/18/24 01:20 Urine Bacteria None /hpf (NONE) 11/18/24 01:20 Hyaline Casts 0-4 /lpf H 11/18/24 01:20 Urine Opiates Screen Negative ng/mL (Negative) 11/18/24 01:20 Ur Barbiturates Screen Negative ng/mL (Negative) 11/18/24 01:20 Ur Phencyclidine Scrn Negative ng/mL (Negative) 11/18/24 01:20 Ur Amphetamines Screen Negative ng/mL (Negative) 11/18/24 01:20 U Benzodiazepines Scrn Negative ng/mL (Negative) 11/18/24 01:20 Urine Cocaine Screen Negative ng/mL (Negative) 11/18/24 01:20 U Marijuana (THC) Screen Negative ng/mL (Negative) 11/18/24 01:20 Ethyl Alcohol < 10 mg/dL (0-10) 11/18/24 00:35 All radiology interpretation(s) finalized by discharge Discharge Plan Discharge Patient Disposition: Home Clinical Impression: Transient cerebral ischemia Qualifiers: Transient cerebral ischemia type: unspecified Qualified Code(s): G45.9 - Transient cerebral ischemic attack, unspecified Condition: Stable Prescriptions: No Action omeprazole 20 mg capsule,delayed release(DR/EC) 20 mg PO BID loratadine 10 mg tablet 10 mg PO DAILY metoprolol tartrate 50 mg tablet 50 mg PO BID prednisone 10 mg tablet See Rx Instructions PO .COMPLEX PRN (Reason: joint pain) Qty: 60 0RF Rx Instructions: take 1 or 2 tab daily for 3-7 days prn joint pain flare PO PRN; acetaminophen 325 mg Tablet 325 mg PO QID PRN (Reason: Pain) aspirin 81 mg tablet,delayed release (DR/EC) 81 mg PO DAILY amlodipine 10 mg Tablet 10 mg PO DAILY levetiracetam 750 mg tablet 750 mg PO DAILY diclofenac sodium 1 % Gel 4 g TOPICAL QID Rx Instructions: apply to single knee, ankle, foot; for foot includes sole/toes/top of foot empagliflozin-metformin 10-1,000 mg Tablet, Ir - Er, Biphasic 24hr 1 tab PO DAILY Discharge Orders: Discharge ED (Routine); Ordered 11/18/24 Ordered By: Jaime Carpenter Referrals: Waldo Sauer, PROVER, MSN, AGACNP-BC [Nurse Practitioner, Nurse Practitioner] Lencho Hernandez [Primary Care Provider] Discharge Diet: Low Salt Discharge Activity: Resume usual activity Patient Instructions: Patient Portal & [facility] Instructions, TIA Activity Restrictions/Additional Instructions: Continue current medicines: Clopidogrel, aspirin, levetiracetam Hold metoprolol, amlodipine with blood pressure less than 120 systolic. Take blood pressure daily. Continue diabetic medications Hold Klonopin/benzodiazepines. Call neurology tomorrow to follow-up with Mr. Sauer on or Saturday this week to further review your evaluation today. Set an alarm to call in the morning when the office opens. You have a referral number above. Return to ED with worsening symptoms. Print Language: [place] Coding Level of Care Code ED Small Equipment Operator for Chg Fwd Documented by User: Jaime Carpenter MD 11/18/24 02:16 HPI - Neuro Symptoms/Deficit General: Chief Complaint: Neuro Symptoms/Deficit Stated Complaint: right arm numbness Time Seen by Provider: 11/18/24 00:14 Related Data Home Medications ?Medication ?Instructions ?Recorded ?Confirmed loratadine 10 mg tablet 10 mg PO DAILY 03/06/23 11/09/24 metoprolol tartrate 50 mg tablet 50 mg PO BID 03/06/23 11/09/24 omeprazole 20 mg capsule,delayed 20 mg PO BID 03/06/23 11/09/24 release acetaminophen 325 mg tablet 325 mg PO QID PRN Pain 11/09/24 11/09/24 amlodipine 10 mg tablet 10 mg PO DAILY 11/09/24 11/09/24 aspirin 81 mg tablet,delayed 81 mg PO DAILY 11/09/24 11/09/24 release diclofenac sodium 1 % topical gel 4 g topical QID 11/09/24 11/09/24 empagliflozin 10 mg-metformin ER 1 tab PO DAILY 11/09/24 11/09/24 1,000 mg tablet,extended release 24hr levetiracetam 750 mg tablet 750 mg PO DAILY 11/09/24 11/09/24 Previous Rx's ?Medication ?Instructions ?Recorded prednisone 10 mg tablet See Rx Instructions PO .COMPLEX 07/09/23 PRN joint pain #60 tabs Allergies Allergy/AdvReac Type Severity Reaction Status Date / Time losartan Allergy Severe throat Verified 09/24/23 13:04 swell lovastatin Allergy Severe dry mouth Verified 09/24/23 13:04 throat start to swell acetaminophen (From Percocet) AdvReac Intermediate pass out Verified 09/24/23 13:04 oxycodone (From Percocet) AdvReac Intermediate pass out Verified 09/24/23 13:04 PFSH ED PFSH: Medical History (Updated 11/18/24 @ 00:58 by ANITHA Phelan) Immunization counseling Seronegative rheumatoid arthritis of both hands High risk medication use Achilles tendinitis of both lower extremities Swelling of both parotid glands Inflammatory arthritis Arthritis Joint pain Hyperlipidemia History of hypertension Allergies Acne Hernia Surgical History H/O laminectomy History of spinal fusion Family History Other Arthritis Denies family history of Lupus (systemic lupus erythematosus) Rheumatoid arthritis Diabetes Heart disease Lung disease Cancer Hypertension Social History Smoking and tobacco/nicotine status: never used tobacco/nicotine Alcohol intake: current Alcohol intake frequency: few times a month NIH stroke score Score: Total Score: 1 Course Vital Signs: Vital signs: Vital Signs Temperature 98.2 F 11/18/24 00:16 Pulse Rate 70 11/18/24 02:30 Respiratory Rate 18 11/18/24 02:15 Blood Pressure 114/79 11/18/24 02:30 Pulse Oximetry 95 11/18/24 02:30 Oxygen Delivery Me thod Room Air 11/18/24 00:16 MDM - Neuro Symptoms/Deficit Medical Decision Making Patient is a 43-year-old male with UNIQUE, HTN, recently diagnosed with abnormal EEG, and worked up for CVA, on Keppra, clopidogrel, and aspirin twice daily. He returns ED with sensory changes to his right distal extremity that have now resolved, word salad that is now resolved, and minimal confusion. NIH is a 1. Last known well is 8 PM. Apparently awoke at 10:30 PM, however was brought to the ED approximately 12:30 PM. In any event his NIH is 1, discussed with neurology, that does not recommend tPA. Does not recommend repeating the CTA of the head and neck, and does recommend following up with her clinic nurse practitioner this week. This will be further arranged tomorrow to follow-up with Dr. Sauer. On reassessment I talked with the patient about his test results. His CT is unremarkable. His labs are unremarkable as well. He has follow-up with neurology in 2 days. Will discharge at this time with precautions to return for worsening or changing symptoms. Lab Data 11/18/24 00:35 11/18/24 00:[address] 11/18/24 00:26 IMPRESSION: No acute intracranial abnormality. ASSESSMENT: ASPECTS ([place] Stroke Program Early CT Score) is 10. ADDENDUM: 11/18/24110 Findings were discussed with KATHERINE ARREDONDO at 11/18/2024 1:09 AM CDT. Laboratory Results WBC 6.01 10^3/uL (3.29-11.43) 11/18/24 00:35 RBC 4.32 10^6/uL (3.85-5.65) 11/18/24 00:35 Hgb 13.40 g/dL (11.27-16.99) 11/18/24 00:35 Hct 39.5 % (37-53) 11/18/24:35 MCV 91.4 fl (82-101) 11/18/24 00:35 MCH 31.0 pg (27-33) 11/18/24 00:35 MCHC 33.9 g/dL (30-55) 11/18/24 00:35 RDW 14.3 % (12.1-15.1) 11/18/24 00:35 Plt Count 177 10^3/cmm (157-399) 11/18/24 00:35 MPV 9.8 fL (7.4-10.4) 11/18/24 00:35 Neut % (Auto) 49.7 % 11/18/24 00:35 Lymph % (Auto) 34.6 % 11/18/24 00:35 Cochran % (Auto) 10.0 % 11/18/24 00:35 Eos % (Auto) 4.2 % 11/18/24 00:35 Baso % (Auto) 0.8 % 11/18/24 00:35 Neut # (Auto) 2.99 10^3/uL (1.8-7.7) 11/18/24 00:35 Lymph # (Auto) 2.1 10^3/uL (0.8-4.8) 11/18/24 00:35 Cochran # (Auto) 0.6 10^3/uL (0.2-0.9) 11/18/24 00:35 Eos # (Auto) 0.3 10^3/uL (0.0-0.8) 11/18/24 00:35 Baso # (Auto) 0.1 10^3/uL (0.0-0.1) 11/18/24 00:35 Nucleated RBC % (auto) 0 % 11/18/24 00:35 Nucleated RBCs # 0.0 /100WBC 11/18/24 00:35 PT 12.60 SECONDS (12.1-14.9) 11/18/24 00:35 INR 0.88 (0.8-1.2) 11/18/24 00:35 APTT 30.3 SECONDS (23.9-36.7) 11/18/24 00:35 Sodium 141 mmol/L (136-145) 11/18/24 00:35 Potassium 4.3 mmol/L (3.5-5.1) 11/18/24 00:35 Chloride 105 mmol/L (98-107) 11/18/24 00:35 Carbon Dioxide 26 mmol/L (22-29) 11/18/24 00:35 Anion Gap 14.3 (5-19) 11/18/24 00:35 BUN 13 mg/dL (6-20) 11/18/24 00:35 Creatinine 0.6 mg/dL (0.7-1.2) L 11/18/24 00:35 GFR Calculation 145.7 mL/min (90-130) H 11/18/24 00:35 Glucose 95 mg/dL (65-115) 11/18/24 00:35 POC Glucose 94 mg/dL (70-110) 11/18/24 00:29 Calculated Osmolality 292 mOsm/kg (285-295) 11/18/24 00:35 Calcium 8.8 mg/dL (8.5-10.5) 11/18/24 00:35 Total Bilirubin 0.3 mg/dL (0.15-1.2) 11/18/24 00:35 AST 14 U/L (0-40) 11/18/24 00:35 ALT 13 U/L (0-41) 11/18/24 00:35 Alkaline Phosphatase 62 U/L (40-130) 11/18/24 00:35 Total Protein 6.5 g/dL (6.6-8.7) L 11/18/24 00:35 Albumin 4.0 g/dL (3.5-5.2) 11/18/24 00:35 Globulin 2.5 g/dL (1.3-4.6) 11/18/24 00:35 Urine Color Yellow (Yellow) 11/18/24 01:20 Urine Appearance Clear (CLEAR) 11/18/24 01:20 Urine pH 5.5 (5-7) 11/18/24 01:20 Ur Specific [place] 1.035 (1.005-1.030) H 11/18/24 01:20 Urine Protein Trace (Negative) A 11/18/24 01:20 Urine Glucose (UA) 3+ (Normal) H 11/18/24 01:20 Urine Ketones Trace (Negative) 11/18/24 01:20 Urine Blood Negative (Negative) 11/18/24 01:20 Urine Nitrate Negative (Negative) 11/18/24 01:20 Urine Bilirubin Negative (Negative) 11/18/24 01:20 Urine Urobilinogen 1.0 mg/dL (Negative) 11/18/24 01:20 Ur Leukocyte Esterase Negative (Negative) 11/18/24 01:20 Urine RBC Rare /hpf (0-2) 11/18/24 01:20 Urine WBC None /hpf (0-5) 11/18/24 01:20 Ur Squamous Epith Cells None /hpf (0-5) 11/18/24 01:20 Amorphous Sediment Not Reportable 11/18/24 01:20 Urine Bacteria None /hpf (NONE) 11/18/24 01:20 Hyaline Casts 0-4 /lpf H 11/18/24 01:20 Urine Opiates Screen Negative ng/mL (Negative) 11/18/24 01:20 Ur Barbiturates Screen Negative ng/mL (Negative) 11/18/24 01:20 Ur Phencyclidine Scrn Negative ng/mL (Negative) 11/18/24 01:20 Ur Amphetamines Screen Negative ng/mL (Negative) 11/18/24 01:20 U Benzodiazepines Scrn Negative ng/mL (Negative) 11/18/24 01:20 Urine Cocaine Screen Negative ng/mL (Negative) 11/18/24 01:20 U Marijuana (THC) Screen Negative ng/mL (Negative) 11/18/24 01:20 Ethyl Alcohol < 10 mg/dL (0-10) 11/18/24 00:35 Discharge Plan Discharge Patient Disposition: Home Clinical Impression: Transient cerebral ischemia Qualifiers: Transient cerebral ischemia type: unspecified Qualified Code(s): G45.9 - Transient cerebral ischemic attack, unspecified Condition: Stable Prescriptions: No Action omeprazole 20 mg capsule,delayed release(DR/EC) 20 mg PO BID loratadine 10 mg tablet 10 mg PO DAILY metoprolol tartrate 50 mg tablet 50 mg PO BID prednisone 10 mg tablet See Rx Instructions PO .COMPLEX PRN (Reason: joint pain) Qty: 60 0RF Rx Instructions: take 1 or 2 tab daily for 3-7 days prn joint pain flare PO PRN; acetaminophen 325 mg Tablet 325 mg PO QID PRN (Reason: Pain) aspirin 81 mg tablet,delayed release (DR/EC) 81 mg PO DAILY amlodipine 10 mg Tablet 10 mg PO DAILY levetiracetam 750 mg tablet 750 mg PO DAILY diclofenac sodium 1 % Gel 4 g TOPICAL QID Rx Instructions: apply to single knee, ankle, foot; for foot includes sole/toes/top of foot empagliflozin-metformin 10-1,000 mg Tablet, Ir - Er, Biphasic 24hr 1 tab PO DAILY Discharge Orders: Discharge ED (Routine); Ordered 11/18/24 Ordered By: Jaime Carpenter Referrals: Waldo Sauer, PROVER, MSN, AGACNP-BC [Nurse Practitioner, Nurse Practitioner] Lencho Hernandez [Primary Care Provider] Discharge Diet: Low Salt Discharge Activity: Resume usual activity Patient Instructions: Patient Portal & [facility] Instructions, TIA Activity Restrictions/Additional Instructions: Continue current medicines: Clopidogrel, aspirin, levetiracetam Hold metoprolol, amlodipine with blood pressure less than 120 systolic. Take blood pressure daily. Continue diabetic medications Hold Klonopin/benzodiazepines. Call neurology tomorrow to follow-up with Mr. Sauer on or Saturday this week to further review your evaluation today. Set an alarm to call in the morning when the office opens. You have a referral number above. Return to ED with worsening symptoms. Print Language: [place] Verdean Coding Level of Care Code ED Small Equipment Operator for Vannessa Aquino
[2024-11-18 01:08] LABS: Hematocrit 39.5 % (37-53); Hemoglobin 13.40 g/dL (11.27-16.99); Mean Corpuscular HGB Conc 33.9 g/dL (30-55); Mean Corpuscular Hemoglobin 31.0 pg (27-33); Mean Corpuscular Volume 91.4 fl (82-101); Nucleated Red Blood Cells % 0 %; Platelet Count 177 10^3/cmm (157-399); Red Blood Count 4.32 10^6/uL (3.85-5.65); White Blood Count 6.01 10^3/uL (3.29-11.43)
[2024-11-18 01:19] LABS: INR 0.88 (0.8-1.2); Prothrombin Time 12.60 SECONDS (12.1-14.9)
[2024-11-18 01:20] LABS: Partial Thromboplastin Time 30.3 SECONDS (23.9-36.7)
[2024-11-18 01:24] LABS: Alanine Aminotransferase 13 U/L (0-41); Albumin Level 4.0 g/dL (3.5-5.2); Alkaline Phosphatase 62 U/L (40-130); Anion Gap 14.3 (5-19); Aspartate Amino Transferase 14 U/L (0-40); Blood Urea Nitrogen 13 mg/dL (6-20); Calcium 8.8 mg/dL (8.5-10.5); Carbon Dioxide 26 mmol/L (22-29); Chloride 105 mmol/L (98-107); Globulin 2.5 g/dL (1.3-4.6); Glucose 95 mg/dL (65-115); Osmolality Calculated 292 mOsm/kg (285-295); Potassium 4.3 mmol/L (3.5-5.1); Sodium 141 mmol/L (136-145); Total Protein 6.5 g/dL (6.6-8.7)
[2024-11-18 01:27] LABS: Alcohol Level < 10 mg/dL (0-10)
[2024-11-18 01:29] LABS: Glucose Urine UA 3+ (Normal); Nitrate Urine Negative (Negative)
[2024-11-18 01:36] LABS: PCP Screen Urine Negative (Negative)
--- NOTE | 2024-11-18 01:36 | ECG_ITS ---
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 Measurements Intervals [place] Rate: 72 P: 50 GA: 166 QRS: 53 QRSD: 98 T: 28 QT: 399 QTc: 439 Interpretive Statements SINUS RHYTHM Compared to ECG 11/09/2024 04:23:03 No significant changes Electronically Signed On 11-21-2024 08:54:13 CDT by Won Roberts M.D. [email or web address]
[2024-11-18 01:59] LABS: Add Urine Microscopic? YES; Specific Gravity, Urine 1.035 (1.005-1.030); UA Manual Slide Review YES; UA Slide Review UA Slide Review Perf
--- NOTE | 2024-11-19 10:00 | DCPLANNER ---
messaged neuro for er f/u. Per Dr. Mcdonough they can order any er f/u testing they need.
== END 2024-11-18 03:02 | disposition home or self-care (01) ==
PROVIDERS: Emergency Provider Physician Assistant; PCP Nurse Practitioner Family
DX: G45.9 Transient cerebral ischemic attack, unspecified (principal); Z79.82 Long term (current) use of aspirin; E78.5 Hyperlipidemia, unspecified; I10 Essential (primary) hypertension; Z79.02 Long term (current) use of antithrombotics/antiplatelets; Z86.73 Personal history of transient ischemic attack (TIA), and cerebral infarction without residual deficits
CPT/HCPCS: 36416; 70450; 80053; 80306; 80307; 81001; 82962; 85025; 85610; 85730; 93005; 99284; J9999

== ENCOUNTER → 2024-11-20 09:26 | Outpatient (BNVA) | payer OTHER, SELFPAY | PROVIDERS: PCP Nurse Practitioner Family; Referring Provider Family Medicine; Visit Provider Nurse Practitioner | DX: R29.818 Other symptoms and signs involving the nervous system (principal) | CPT/HCPCS: 99203 ==

== ENCOUNTER 2024-12-02 06:53 | Outpatient (CLI) | payer OTHER, SELFPAY ==
--- NOTE | 2024-12-02 07:10 | MR_ITS ---
WS: [id number] MRI HEAD WITHOUT CONTRAST TECHNIQUE: Sagittal T1, T2 axial, T2 axial FLAIR, axial and coronal T1 images, axial susceptibility weighted imaging, axial diffusion weighted images, and coronal T2 images were obtained. CLINICAL INFORMATION: TIA COMPARISON: CT 2024 FINDINGS: Small focus of increased diffusion signal although not restricted within the RIGHT cerebellum measuring 6 mm with associated T2 signal abnormality. Small amount of associated hemosiderin in this area. No evidence of restricted diffusion to suggest acute ischemia. Normal sebastian-white differentiation. No other suspicious intracranial signal abnormalities. Normal vascular flow voids at the skull base. No extra-axial fluid collections. Paranasal sinuses and mastoid air cells are well aerated. Normal posterior nasopharynx. Normal optic chiasm and pituitary infundibulum. Temporal lobes hippocampal formations are normal in appearance. MR/MR head wo con* [id number] IMPRESSION: 1. 6 mm focus of T2 signal abnormality in the RIGHT cerebellum adjacent to the brachium pontis and fourth ventricle with increased signal on diffusion and a small amount of associated hemosiderin. Differential considerations include sub acute infarct with a tiny amount of hemosiderin vs demyelinating disease or po ssibly cavernoma. This can be followed up with gadolinium in 3 to 6 months to a ssess change. Recommend correlation with clinical history. In addition, MRI cer vical spine can be obtained to evaluate for additional lesions 2. No other suspicious intracranial signal abnormalities. 3. Temporal lobes and hippocampal formations are normal in appearance. 4. No other suspicious findings.
== END 2024-12-02 06:54 | disposition home or self-care (01) ==
LOC: RAD 06:53
PROVIDERS: PCP Nurse Practitioner Family; Visit Provider Nurse Practitioner Family
DX: G45.9 Transient cerebral ischemic attack, unspecified (principal); R93.0 Abnormal findings on diagnostic imaging of skull and head, not elsewhere classified
CPT/HCPCS: 70551

== ENCOUNTER → 2024-12-16 09:26 | Outpatient (BNVA) | payer OTHER, SELFPAY | PROVIDERS: PCP Nurse Practitioner Family; Visit Provider Internal Medicine Rheumatology | DX: Z79.899 Other long term (current) drug therapy (principal); M06.041 Rheumatoid arthritis without rheumatoid factor, right hand; M06.042 Rheumatoid arthritis without rheumatoid factor, left hand; Z71.85 Encounter for immunization safety counseling; M76.62 Achilles tendinitis, left leg; M76.61 Achilles tendinitis, right leg; E11.9 Type 2 diabetes mellitus without complications | CPT/HCPCS: 99214 ==

== ENCOUNTER → 2025-01-11 09:52 | Outpatient (BNVA) | payer OTHER, SELFPAY | PROVIDERS: PCP Nurse Practitioner Family; Referring Provider Nurse Practitioner Family; Visit Provider Nurse Practitioner | DX: R29.818 Other symptoms and signs involving the nervous system (principal) | CPT/HCPCS: 99213 ==

== ENCOUNTER 2025-01-20 09:01 | Outpatient (CLI) | payer OTHER, SELFPAY ==
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
[2025-01-20] MEDS: iohexol 350 mg/mL 500 mL Btl (per mL) IV (09:54)
== END 2025-01-20 09:02 | disposition home or self-care (01) ==
LOC: RAD 09:01
PROVIDERS: PCP Nurse Practitioner Family; Visit Provider Nurse Practitioner
DX: M50.321 Other cervical disc degeneration at C4-C5 level (principal); M48.02 Spinal stenosis, cervical region; M25.78 Osteophyte, vertebrae; M50.223 Other cervical disc displacement at C6-C7 level; M48.03 Spinal stenosis, cervicothoracic region; M47.812 Spondylosis without myelopathy or radiculopathy, cervical region; M47.892 Other spondylosis, cervical region; M50.23 Other cervical disc displacement, cervicothoracic region
CPT/HCPCS: 72127

== ENCOUNTER 2025-02-02 09:07 | Outpatient (CLI) | payer OTHER, SELFPAY ==
--- NOTE | 2025-02-02 09:15 | USCV_ITS ---
Augie Rodriguez Age: 44 Gender: M : 1980 Exam Date: 02/02/2025 09:35 Ordering Phys: Waldo Sauer MSN AGACNP-BC Technologist: Exam Location: [facility] [place] Indication: tia/cva BP: 128 / 70 HR: Rhythm: Sinus Technical Quality: Adequate MEASUREMENTS (Male / Female) Normal Values 2D ECHO LV Diastolic Diameter PLAX 5.0 cm 4.2 - 5.9 / 3.9 - 5.3 cm IVS Diastolic Thickness 1.5 cm 0.6 - 1.0 / 0.6 - 0.9 cm IVS Systolic Thickness 1.8 cm LVPW Diastolic Thickness 1.1 cm 0.6 - 1.0 / 0.6 - 0.9 cm LVPW Systolic Thickness 1.8 cm LVOT Diameter 2.2 cm LV Ejection Fraction 2D Teich 64.2 % LV Ejection Fraction MOD 4C 65.9 % LV Ejection Fraction MOD 2C 70.4 % LV Ejection Fraction 2C AL 70.1 % LA Diameter 3.9 cm Aorta at Sinotubular Diameter 3.0 cm IVC Diameter 3.0 cm M-MODE LA Ao Ratio MM 1.2 AV Cusp Separation MM 2.3 cm DOPPLER TR Peak Velocity 160.0 cm/s TR Peak Gradient 10.2 mmHg TV Peak E Velocity 87.0 cm/s PV Peak Velocity 101.0 cm/s FINDINGS Left Ventricle Normal left ventricular size and systolic function, EF 64%no regional wall motion abnormalities. . Right Ventricle Normal right ventricular size and systolic function. Right Atrium Saline contrast injection revealed no evidence of any right-to- left shunt Left Atrium Normal left atrial size. IA Septum Normal appearance of the interatrial septum. Mitral Valve No gross abnormalities noted Aortic Valve No gross abnormalities noted Tricuspid Valve No gross abnormalities noted Pulmonic Valve No gross abnormalities noted Pericardium No pericardial effusion. Aorta Normal diameter of the aortic root and ascending thoracic aorta. IVC Normal IVC diameter. CONCLUSIONS Normal left ventricular size and systolic function, EF 64%no regional wall motion abnormalities. . Saline contrast injection revealed no evidence of [id number] shunt There is no pericardial effusion. There are no intracardiac masses. No similar previous studies are available for comparison Dr Geovani Calero MD [facility] (Electronically Signed) Final Date: 03 February 2025 19:07 S
--- NOTE | 2025-02-02 10:00 | USCV_ITS ---
Augie Rodriguez Age: 44 Gender: M : 1980 Exam Date: 02/02/2025 09:54 Ordering Phys: Waldo Sauer MSN AGACNP-BC Technologist: Exam Location: [facility] [place] Indication: tia/cva Risk Factors: Previous Vascular Surgery: Right Brachial BP: / Left Brachial BP: / Right Left Velocity (cm/s) Spectral Plaque Velocity (cm/s) Spectral Plaque Syst/Diast Broadening Syst/Diast Broadening 102.80/22.90 Prox CCA 97.20 / 29.90 107.30/19.90 Mid CCA 109.60/ 21.10 94.30/ 18.00 Distal CCA 101.40/ 19.10 67.00/ 16.20 Prox ICA 64.50 / 17.30 63.40/ 21.60 Mid ICA 75.00 / 20.80 74.30/ 23.40 Distal ICA 62.80 / 20.80 65.20 ECA 0.80 ICA/CCA 0.70 Antegrade Vertebral Antegrade 37.50/ 12.40 cm/s 54.00/ 13.80 cm/s Tri Subclavian Tri 66.30 80.30 CONCLUSIONS Right ICA stenosis <50%. Left ICA stenosis <50%. Normal antegrade Doppler flow noted in the right vertebral artery. Normal antegrade Doppler flow noted in the left vertebral artery. Bossman Simpson MD (Electronically Signed) Final Date: 02 February 2025 13:50 S
== END 2025-02-02 09:08 | disposition home or self-care (01) ==
LOC: RAD 09:08
PROVIDERS: PCP Nurse Practitioner Family; Visit Provider Nurse Practitioner
DX: Z09 Encounter for follow-up examination after completed treatment for conditions other than malignant neoplasm (principal); R29.818 Other symptoms and signs involving the nervous system; I65.23 Occlusion and stenosis of bilateral carotid arteries
CPT/HCPCS: 93880; C8924

== ENCOUNTER 2025-03-18 12:09 | Outpatient (CLI) | payer OTHER, SELFPAY ==
--- NOTE | 2025-03-18 12:16 | MR_ITS ---
WS: [id number] MRI BRAIN WITH AND WITHOUT CONTRAST HISTORY: TRANSIENT NEUROLOGICAL SYMPTOMS COMPARISON: 12/29/2024, CT head 11/09/2024 TECHNIQUE: Multiplanar imaging performed through the brain with MultiHance 20 ml's IV. No acute infarct. Persistent minimal diffusion signal in the recently described RIGHT cerebellar small focus. T2 shine through is noted. Signal abnormality measures 6 mm with no change. There is a tiny amount of hemosiderin reidentified associated with this 6 mm focus. The lesion does not enhance. No significant atrophy. No significant small vessel disease. Hippocampal formations are normal. No prior infarcts. No additional hemosiderin deposits. Ventricles and extra-axial spaces are normal. Clivus and pituitary gland are normal. Postcontrast images are negative for masses or vascular malformations. Dural venous sinuses are normal. Paranasal sinuses: Well aerated with no significant disease. Mastoid air cells: Normal. Calvarium and scalp: Normal. MR/MR head wo/w con [id number] IMPRESSION: 1. No change in the 6 mm T2 hyperintense focus in the RIGHT cerebellum. There is no enhancement. This is probably a remote infarct. 2. No additional abnormalities are noted within the brain. No enhancing masses . No additional infarcts or ischemia. 3. Normal hippocampal formations.
[2025-03-18] MEDS: gadobenate dimeglumine 20 mL vial IV (13:05)
== END 2025-03-18 12:10 | disposition home or self-care (01) ==
LOC: RAD 12:12
PROVIDERS: PCP Nurse Practitioner Family; Visit Provider Specialist
DX: R29.818 Other symptoms and signs involving the nervous system (principal)
CPT/HCPCS: 70553